=== PATIENT | female | born 1940 | race Caucasian/White ===

== ENCOUNTER 2024-08-31 09:24 | Outpatient (CLI) | payer MEDICARE, SELFPAY ==
--- NOTE | ~2024-08-31 | US_ITS ---
EXAMINATION: US carotid duplex BI DATE: 08/31/2024 10:12 INDICATION: Carotid occlusion. TECHNIQUE: Grayscale, color Doppler, and pulsed Doppler images of the cervical carotid arteries were obtained. The degree of vessel stenosis is placed in one of the following categories: normal, <50%, 5 0-69%, >=70% but less than near-occlusion, near-occlusion, or total occlusion. Note that percent sten osis relative to normal distal artery lumen diameter is indirectly measured from velocity measurement s as described by Nawaf, et al. Radiology 2003; 229:340-346. Notes: Normal: Peak systolic velocity <125 centimeters/sec and no plaque <50%. Peak systolic velocity <125 ( EDV <40; ICA/CCA PSV ratio <2.0; used these factors only a tandem lesions or low cardiac output or co ntralateral disease) 50-69 %: PSV 125-230 (EDV 40-100; ratio 2-4) >= 70% but less than near occlusion: PSV greater than 230 (EDV > 100; ratio> 4.0) Near Occlusion: PSV that is variable; markedly narrowed lumen Occlusion: Absent flow on color/spectral Doppler and no lumen on downs scale. COMPARISON: None. FINDINGS: RIGHT: The right common carotid artery (CCA) peak systolic velocity (PSV) is 77 cm/s. The right internal car otid artery (ICA) PSV is 64 cm/s. The right ICA end-diastolic velocity (EDV) is 14 cm/s. The right IC A/CCA PSV ratio is 0.8. The external carotid artery (ECA) PSV is 95 cm/s. There is antegrade flow in the right vertebral artery. LEFT: The left CCA PSV is 66 cm/s. The left ICA PSV is 87 cm/s. The left ICA EDV is 22 cm/s. The left ICA/C CA PSV ratio is 1.3. The ECA PSV is 98 cm/s. There is antegrade flow in the left vertebral artery. IMPRESSION: 1. Less than 50% stenosis in the right internal carotid artery by sonographic criteria. 2. Less than 50% stenosis in the left internal carotid artery by sonographic criteria. Reviewed, dictated and finalized at location A. IMPRESSION: 1. Less than 50% stenosis in the right internal carotid artery by sonographic billy wooten. 2. Less than 50% stenosis in the left internal carotid artery by sonographic katy dukes.
--- OUTSIDE RECORDS SUMMARY | 2024-08-31 10:06 | XMS_ITS | Encounter Summary ---
Author Organization [facility] Address [address] [place] [address] Phone Care Team Providers Care Editor Magazine Name Role Phone Justin Dang MD Primary Care Prov ider Judi Brooke RN Unavailable Carrol vailable Azul Israel MD Unavailable [phone] Leodan Campo MD Unavailable [phone] Encounter Details Date Type Department Care Team (Latest Contact Info) Description 07/29/2017 Orders Only [facility] CONVERSION Scanning, Provider Social History Tobacco Use Types Packs/Day Years Used Date Smoking Tobacco: Never Smokeless Tobacco: Never Alcohol Use Standard Drinks/Week Comments Yes 0 (1 standard drink = 0.6 oz pur e alcohol) Comments Unknown Sex and Gender Information Value Date Recorded Sex Assigned at Not on file 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 Gender Identity Not on file Sexual Orientation Not on file documented as of this encounter Plan of Treatment Not on file documented as of this encounter Procedures Procedure Name Priority Date/Time Associated Diagnosis Comments PULMONARY FUNCTION TEST (PFT) 07/29/2017 1:30 PM CDT documented in this encounter Results * PULMONARY FUNCTION TEST (PFT) (07/29/2017 1:30 PM CDT) Anatomical Region Laterality Modality PFT us Provider Scanning PFT ORDERABLES Final Result documented in this encounter Visit Diagnoses Not on filedocumented in this encounter Care Teams Editor Magazine Relationship Specialty Start Date End Date Justin Dang MD [address] [place] [address] PCP - General 06/26/16 Judi Brooke, RN Registered Nurse Pulmonary Disease 04/28/22 Azul Israel MD Referring Physician Pulmonary Disease 02/23/23 Leodan Campo MD Consulting Physician Cardiology 02/23/23 documented as of this encounter
--- OUTSIDE RECORDS SUMMARY | 2024-08-31 10:06 | XMS_ITS | Encounter Summary ---
Author Organization [facility] Address [address] [place] [address] Phone Care Team Providers Care Epic Cupid Analyst Name Role Phone Justin Dang MD Primary Care Prov ider Judi Brooke RN Unavailable Carrol vailable Azul Israel MD Unavailable [phone] Leodan Campo MD Unavailable [phone] Encounter Details Date Type Department Care Team (Latest Contact Info) Description 01/22/2017 Orders Only [facility] CONVERSION Scanning, Provider Social History Tobacco Use Types Packs/Day Years Used Date Smoking Tobacco: Never Smokeless Tobacco: Never Alcohol Use Standard Drinks/Week Comments Yes 0 (1 standard drink = 0.6 oz pur e alcohol) Comments Unknown Sex and Gender Information Value Date Recorded Sex Assigned at Not on file 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 Gender Identity Not on file Sexual Orientation Not on file documented as of this encounter Plan of Treatment Not on file documented as of this encounter Procedures Procedure Name Priority Date/Time Associated Diagnosis Comments PULMONARY FUNCTION TEST (PFT) 01/22/2017 9:51 AM CDT documented in this encounter Results * PULMONARY FUNCTION TEST (PFT) (01/22/2017 9:51 AM CDT) Anatomical Region Laterality Modality PFT us Provider Scanning PFT ORDERABLES Final Result documented in this encounter Visit Diagnoses Not on filedocumented in this encounter Care Teams Epic Cupid Analyst Relationship Specialty Start Date End Date Justin Dang MD [address] [place] [address] PCP - General 06/26/16 Judi Brooke, RN Registered Nurse Pulmonary Disease 04/28/22 Azul Israel MD Referring Physician Pulmonary Disease 02/23/23 Leodan Campo MD Consulting Physician Cardiology 02/23/23 documented as of this encounter
--- OUTSIDE RECORDS SUMMARY | 2024-08-31 10:06 | XMS_ITS | Encounter Summary ---
Author Organization [facility] Address [address] [place] [address] Care Team Providers Care Patient Care Technician Instructor Name Role Phone Justin Dang MD Primary Care Prov ider Judi Brooke RN Unavailable Carrol Azul Raman MD Unavailable [phone] Leodan Campo MD Unavailable [phone] Encounter Details Date Type Department Care Team (Late st Contact Info) Description 07/26/2024 Results Follow-Up [facility] Cardiology [address] [place] [address] Max Perez MD [address] [address] [facility] W Morphology when Performed Social History Tobacco Use Types Packs/Day Years Used Date Smoking Tobacco: Never Smokeless Tobacco: Never Alcohol Use Standard Drinks/Week Comments Yes 0 (1 standard drink = 0.6 oz pur e alcohol) Comments Unknown Sex and Gender Information Value Date Recorded Sex Assigned at Not on file 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
--- OUTSIDE RECORDS SUMMARY | 2024-08-31 10:06 | XMS_ITS | Continuity of Care Document ---
Author Organization [facility] Address [address] [place] [address] Phone Care Team Providers Care Film Historian Name Role Phone Miracle Butler Unavailable Unavailable [...] Diagnoses Date Provider Providers Copied on Encounter [facility], [address] [place] [address] [address], [place], [place], [address], tel:[phone] [facility] No Information 9- 0 Carrie Rausch. [address] , [address], [place], [address], [place]. tel:[phone] [facility], [address] [place] [address] [address], [place], [place], [address], tel:[phone] [facility] No Information 0-201 0 Simon OD Ronny. [address], [place], [place], [facility], . tel:[phone] [facility], [address] [place] [address] [address], [place], [place], [address], tel:[phone] [facility] No Information May-1 9-201 0 Butler Miracle. [address], [place], [facility], [place]. tel:[phone] [facility], [address] [place] [address] [address], [place], [place], [address], [place] tel:[phone] [facility] No Information July- 1-201 0 Butler Miracle. [address], [place], [facility], . tel:[phone] [facility], [address] [place] [address] [address], [place], [place], [address], tel:[phone] [facility] No Information Oct-2 0-200 9 Butler Miracle. [address], [place], [facility], [place]. tel:[phone] [facility], [address] [place] [address] [address], [place], [place], [address], tel:[phone] [facility] No Information Sep-2 6-200 8 Butler Miracle. [address], [place], [facility], [place]. tel:[phone] [facility], [address] [place] [address] [address], [place], [place], [address], [place] tel:[phone] [facility] No Information Sep-0 4-200 8 Simon OD Ronny. [address], [place], [facility], [place]. tel:[phone] [facility], [address] [place] [address] [address], [place], [place], [address], [place] tel:[phone] [facility] No Information 0 200 8 Carrie Orr [address], [place], [facility], [place]. tel:[phone] [facility], [address] [place] [place] [address], [place], [place], [address], [place] tel:[phone] [facility] No Information 200 8 Carrie Orr [address], [place], [facility], [place]. tel:[phone] Referring Provider: Miracle Triana, [address], [place], [facility]. tel:[phone] [facility], [address] [place] [address] [address], [place], [place], [address], [place] tel:[phone] [facility] No Information 8 Carrie Orr [address], [place], [facility], [place]. tel:[phone] [facility], [address] [place] [address], [place], [place], [address], [place] tel:[phone] [facility] No Information 7 Carrie Orr [address], [place], [facility], [place]. tel:[phone] Office/outpat ient Visit, Est [facility], [address] [place] [address], [place], [place], [address], [place] tel:[phone] [facility] No Information 200 7 Carrie Orr [address], [place], [facility], [place]. tel:[phone] Family History Family Member Type Diagnosis Age At Onset No Information Payers Payer name Insurance type Covered constitution party ID Authoriza tion(s) No Information Social [...]
--- OUTSIDE RECORDS SUMMARY | 2024-08-31 10:06 | XMS_ITS | Referral Summary ---
Author Organization [facility] D Address [address] [place] [address] Care Team Providers Care Realty Loan Specialist Name Role Phone Justin Dang MD Primary Care Prov ider Judi Brooke RN Unavailable Carrol Azul Raman MD Unavailable Leodan Campo MD Unavailable [phone] Encounters Date Type Department Care Team Description 08/22/2024 Telephone [facility] Cardiology [address] [place] [address] Max Perez MD 08/09/2024 11:00 AM CDT Office Visit [facility] Cardiology [address] [place] [address] Max Perez MD 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 (Primary Dx); Hx of CABG; Essential hypertension; Chronic obstructive pulmonary disease, unspecified COPD type (HCC) 07/27/2024 1:12 PM CDT - 07/27/2024 11:59 PM CDT Hospital Encounter [facility] [address] [place] [id number] Asthma, unspecified asthma severity, unspecified whether complicated, unspecified whether persistent; SOB (shortness of breath) Discharge Disposition: Discharge to home or self care 07/27/2024 12:45 PM CDT - 07/27/2024 11:59 PM CDT Hospital Encounter [facility] Pulmonary [address] [place] [address] Severe persistent asthma without complication (HCC) Discharge Disposition: Discharge to home or self care 07/27/2024 1:30 PM CDT Office Visit [facility] [address] [facility] [address] [place] [address] [place] [address] Letitia Myers NP Severe persistent asthma without complication (HCC) (Primary Dx); Shortness of breath on exertion; Immunization counseling; On prednisone therapy 07/26/2024 Results Follow-Up [facility] Cardiology [address] [place] [phone] Max Perez MD CTA Heart and Coronary Arteries W Morphology when Performed 07/25/2024 12:53 PM CDT - 07/25/2024 11:59 PM CDT Hospital Encounter [facility] ([facility]) [address] [place] [address] Discharge Disposition: Discharge to home or self care 06/28/2024 Telephone [facility] [facility] [address]th [place] [address] [place] [address] Judi Brooke, [facility] 06/07/2024 Telephone [facility] Cardiology [address] [place] [address] [address] [place] [phone] Max Perez MD from Last 3 Months Allergies Active Allergy Reactions Criticality Noted Date Comments Meperidine Nausea & Vomiting Low Opioids - Morphine Analogues Nausea & Vomiting Low Sulfa (Sulfonamide Antibiotics) Itching Low Medications aspirin 81 mg chewable tablet chew 1 tablet (81MG) by oral route every day 0 012 Active bepotastine besilate 1.5 % drops 022 Active azelastine (OPTIVAR) 0.05 % ophthalmic solution Administer 2 drops into both eyes daily 023 Active fluorometholone (FML) 0.1 % ophthalmic suspension Administer 2 drops into both eyes daily 022 Active nitroglycerin 400 mcg/spray sprayIndications: Coronary artery disease involving chevak coronary artery of chevak heart without angina pectoris Place 1 spray under the tongue every 5 (five) minutes as needed for chest pain 4.9 g 1 023 Active epinastine 0.05 % ophthalmic solution 023 Active escitalopram (LEXAPRO) 10 mg tablet 023 Active levothyroxine (SYNTHROID) 88 mcg tablet 023 Active clopidogreL (PLAVIX) 75 mg tablet TAKE ONE TABLET BY MOUTH EVERY DAY 90 tablet 2 024 Active montelukast (SINGULAIR) 10 mg tablet TAKE ONE TABLET BY MOUTH AT BEDTIME 30 tablet 11 025 Active atorvastatin (LIPITOR) 80 mg tablet TAKE ONE TABLET (80 MG TOTAL) BY MOUTH DAILY 90 tablet [address] (PROTONIX) 40 mg EC tablet Take 1 tablet (40 mg total) by mouth daily 025 Active tobramycin-dexAME THasone (TOBRADEX) ophthalmic solution Administer 1 drop into both eyes every 2 (two) hours while awake 025 Active levothyroxine (SYNTHROID) 100 mcg tablet Take 1 tablet (100 mcg total) by mouth weight clerk before breakfast 025 Active amLODIPine (NORVASC) 10 mg tablet Take 1 tablet (10 mg total) by mouth daily 30 tablet 11 025 2025 Active albuterol HFA (PROVENTIL HFA,VENTOLIN HFA,PROAIR HFA) 90 mcg/actuation inhaler INHALE TWO (2) PUFFS EVERY 4 (FOUR) HOURS NEEDED FOR WHEEZING 8.5 g 11 025 Active mirtazapine (REMERON) 15 mg tablet 025 Active predniSONE (DELTASONE) 5 mg tablet Take 1 tablet (5 mg) by mouth daily after completing the prednisone taper. 30 tablet 1 025 Active ezetimibe (ZETIA) 10 mg tablet TAKE ONE TABLET (10 MG) BY MOUTH DAILY 90 tablet 3 025 Active losartan (COZAAR) 100 mg tablet TAKE ONE TABLET (100 MG TOTAL) BY MOUTH DAILY 90 tablet 3 025 Active meclizine (ANTIVERT) 25 mg tablet 025 Active ondansetron ODT (ZOFRAN-ODT) 4 mg disintegrating tablet 025 Active hydroCHLOROthiazi de (HYDRODIURIL) 25 mg tablet TAKE ONE TABLET (25 MG) BY MOUTH DAILY 90 tablet 2 025 Active isosorbide mononitrate ER (IMDUR) 120 mg 24 hr tablet TAKE ONE TABLET (120 MG TOTAL) BY MOUTH EVERY MORNING 90 tablet 025 Active metoprolol (LOPRESSOR) 100 mg tabletIndications :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 Take 0.5 tablets (50 mg total) by mouth 2 (two) times a day 90 tablet 025 Active umeclidinium-ashley nteroL (Anoro Ellipta) 62.5-25 mcg/actuation blister with device Inhale 1 puff daily 90 each 3 025 Active isosorbide mononitrate ER (IMDUR) 120 mg 24 hr tablet TAKE 1 TABLET (120 MG TOTAL) BY MOUTH EVERY MORNING 90 tablet 3 024 2024 Discontinued hydroCHLOROthiazi de (HYDRODIURIL) 25 mg tablet TAKE 1 TABLET (25 MG TOTAL) BY MOUTH DAILY 90 tablet 3 024 2024 Discontinued metoprolol (LOPRESSOR) 100 mg tabletIndications :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 Take 0.5 tablets (50 mg total) by mouth 2 (two) times a day 024 2024 Discontinued Anoro Ellipta 62.5-25 mcg/actuation blister with device USE 1 INHALATION BY MOUTH DAILY 180 each 3 025 2024 Discontinued(R eorder) Active Problems Problem Noted Date Diagnosed Date Severe persistent asthma without complication Hx of CABG 10/22/2021 Peripheral artery disease 10/22/2021 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 Continue aspirin and Plavix. Nitroglycerin spray refilled. Assessment & Plan (04/01/2020 2:54 PM PRODUCTION CLERK): Mild stable exertional chest discomfort. She is on maximum tolerated medical therapy. No change made. Assessment & Plan (06/22/2019 1:46 PM CDT): Very rare episodes of nitrate responsive chest discomfort. Assessment & Plan (12/04/2018 7:19 PM CDT): Symptoms are stable. Continue current regimen. Assessment & Plan (05/16/2018 11:55 AM PRODUCTION CLERK): Symptoms are stable on beta-yrn and nitrate therapy. Continue dual anti- platelet therapy as well. Assessment & Plan (11/19/2017 4:23 PM CDT): No recent symptoms of chest discomfort. Arm discomfort proved to be noncardiac. Assessment & Plan (04/23/2017 10:39 AM PRODUCTION CLERK): Exertional chest discomfort, relieved by rest. She is on maximum tolerated beta-yrn and nitrate therapy, and has not tolerated Ranexa. The symptoms have previously been shown to be from a tiny distal LAD not suitable for intervention. Discussed the prophylactic use of nitroglycerin, and she will try this. Assessment & Plan (10/22/2016 2:12 PM CDT): Remarkably asymptomatic on current therapy. No change recommended. She is to let me know if any surgery is recommended for her neck condition. Essential hypertension 10/22/2016 Assessment & Plan (12/16/2020 11:07 AM CDT): Blood pressure is adequately controlled on current regimen. No change was made. Assessment & Plan (04/01/2020 2:54 PM PRODUCTION CLERK): Blood pressure is adequately controlled on current regimen. No change was made. Assessment & Plan (06/22/2019 1:47 PM CDT): Blood pressure is adequately controlled on current regimen. No change was made. Assessment & Plan (12/04/2018 7:19 PM CDT): Blood pressure is adequately controlled on current regimen. No change was made. Assessment & Plan (05/16/2018 11:55 AM PRODUCTION CLERK): Blood pressure is adequately controlled on current regimen. No change was made. Assessment & Plan (11/19/2017 4:24 PM CDT): Blood pressure is adequately controlled on current regimen. No change was made. Assessment & Plan (04/23/2017 10:39 AM PRODUCTION CLERK): Blood pressure is adequately controlled on current regimen. No change was made. Assessment & Plan (10/22/2016 2:12 PM CDT): Blood pressure is adequately controlled on current regimen. No change was made. Mixed hyperlipidemia 10/22/2016 Assessment & Plan (12/16/2020 11:07 AM CDT): On chronic lipid lowering therapy with good control. No changes made. Assessment & Plan (04/01/2020 2:54 PM PRODUCTION CLERK): On chronic lipid lowering therapy with good control. No changes made. Assessment & Plan (06/22/2019 1:47 PM CDT): On chronic lipid lowering therapy with good control. No changes made. Assessment & Plan (12/04/2018 7:19 PM CDT): On chronic lipid lowering therapy with good control. No changes made. Assessment & Plan (05/16/2018 11:55 AM PRODUCTION CLERK): On chronic lipid lowering therapy with good control. No changes made. Assessment & Plan (11/19/2017 4:24 PM CDT): On chronic lipid lowering therapy with good control. No changes made. Assessment & Plan (04/23/2017 10:39 AM PRODUCTION CLERK): On chronic lipid lowering therapy with good control. No changes made. Assessment & Plan (10/22/2016 2:13 PM CDT): On chronic lipid lowering therapy with good control. No changes made. Moderate persistent asthma without complication 10/16/2015 Calculus of kidney 10/27/2012 Resolved Problems Problem Noted Date Diagnosed Date Resolved Date Lipid screening 05/10/2023 10/07/2023 Palpitations 04/29/2022 02/22/2023 Bilateral lower extremity edema 11/14/2018 02/22/2023 Assessment & Plan (12/04/2018 7:21 PM CDT): Will obtain echo Doppler to be sure there is no cardiac source of her edema. For convenience reasons, she strongly prefers to have this done at [facility]. Asthma 10/16/2015 02/22/2023 Chronic obstructive pulmonary disease 06/26/2015 10/07/2023 Cough 02/26/2015 02/22/2023 Shortness of breath 10/07/19 24 Immunizations Immunization Administration Dates Next Due Influenza, Quadrivalent, Hig h Dose, Preservative Free, Intrr 01/13/2022 Influenza, Trivalent, High D ose, Split, Preservative Free, Intramuscular 12/17/2023 Influenza, Trivalent, IM (MDV) 01/08/2014,2012,02/29/2012 Influenza, Trivalent, Preser vative Free, Intramuscular 02/17/2015 RSV Vaccine, Pref, Recombina nt, Subunit, Adjuvanted, PF, IM (Arexvy) 12/17/2023 Social History Tobacco Use Types Packs/Day Years Used Date Smoking Tobacco: Never Smokeless Tobacco: Never Tobacco Cessation:Counseling Given: Not Answered Alcohol Use Standard Drinks/Week Comments Yes 0 (1 standard drink = 0.6 oz pur e alcohol) Comments Unknown Sex and Gender Information Value Date Recorded Sex Assigned at Not on file Legal Sex Female 11:25 AM PRODUCTION CLERK Gender Identity Not on file Sexual Orientation Not on file Last Filed Vital Signs Vital Sign Reading Time Taken Comments Blood Pressure 122/58 08/09/2024 11:11 AM CDT Pulse 67 08/09/2024 11:11 AM CDT Temperature 36.1 C (96.9 F) 07/27/2024 1:31 PM CDT Respiratory Rate 18 07/27/2024 1:31 PM CDT Oxygen Saturation 96% 08/09/2024 11:11 AM CDT Inhaled Oxygen Concentration - - Weight 67.1 kg (148 lb) 08/09/2024 11:11 AM CDT Height 154.9 cm (5' 1) 08/09/2024 11:11 AM CDT Body Mass Index 27.96 08/09/2024 11:11 AM CDT Plan of Treatment Not on file Procedures Procedure Name Priority Date/Time Associated Diagnosis Comments POCT LIPID PANEL Routine 08/09/2024 11:0 8 AM CDT 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 XR CHEST PA LATERAL 2 VIEWS Schedule Routine, Read Routine (OP Routine) 07/27/2024 1:17 PM CDT Asthma, unspecified asthma severity, unspecified whether complicated, unspecified whether persistent SOB (shortness of breath) PULMONARY FUNCTION TEST (PFT) Routine 07/27/2024 1:00 PM CDT Severe persistent asthma without complication (HCC) CT HEART MORPHOLOGY AND CORONARY ARTERIES W CONTRAST Schedule Routine, Read Routine (OP Routine) 07/25/2024 2:00 PM CDT 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 Hx of CABG POCT CREATININE - DEVICE Routine 07/25/2024 1:22 PM CDT DEXA APPENDICULAR BONE DENSITY Schedule Routine, Read Routine (OP Routine) 05/19/2022 10:05 AM PRODUCTION CLERK Adverse effect of prednisone, sequela Post-menopausal from Last 3 Months or Most Recently Relevant to Health Maintenance Results * POCT lipid panel (08/09/2024 11:08 AM CDT) Cholesterol, POC 163 <200 MG/DL HDL, POC 64 >=40 mg/dL Triglycerides, POC 104 <=149 mg/dL LDL Cholesterol POC 78 <=129 mg/dL Chol/HDL Ratio, POC 1.2 NONE Non-HDL Cholesterol, POC 98 NONE mg/dL Cholesterol Total, POC 163 30 - 199 mg/dL Capillary blood 08/09/2024 1 1:08 AM CDT Max Perez MD POINT OF CARE TEST ORDERABLES Fi nal Result * X-ray chest 2 views (07/27/2024 1:17 PM CDT) Anatomical Region Laterality Modality Body, Chest N/A Computed Radiogr aphy 07/27/2024 2:00 PM CDT Impressions 07/27/2024 2:08 PM CDT Comparison radiograph dated 07/02/2020. Median sternotomy wires are unchanged. CABG graft markers. No focal pulmonary consolidation, pleural effusion, or pneumothorax. Normal cardiomediastinal silhouette. Dictated by: Alma Krishnan MD The radiology attending physician has personally reviewed this study, and had reviewed and/or edited this written report and agrees with it. Electronically signed by: Ebony Canchola M.D. Narrative 07/27/2024 2:08 PM CDT EXAMINATION: 2 view chest radiograph Procedure Note Ebony Canchola MD - 07/27/2024 EXAMINATION: 2 view chest radiograph IMPRESSION: Comparison radiograph dated 07/02/2020. Median sternotomy wires are unchanged. CABG graft markers. No focal pulmonary consolidation, pleural effusion, or pneumothorax. Normal cardiomediastinal silhouette. Dictated by: Alma Krishnan MD The radiology attending physician has personally reviewed this study, and had reviewed and/or edited this written report and agrees with it. Electronically signed by: Ebony Canchola M.D. Azul Israel MD IMG XR PROCEDURES Final Resu lt * Pulmonary Function Test - (07/27/2024 1:00 PM CDT) FVC PRE 1.73 L [facility] FVC %PRE PRED 79 % [facility] FEV1 PRE 1.13 L [facility] FEV1 %PRE PRED 67 % [facility] FEV1/FVC PRE 65.3 % [facility] Anatomical Region Laterality Modality PFT 07/27/2024 12:5 7 PM CDT Narrative 07/27/2024 2:07 PM CDT PFT performed at:->[id number] Procedure:->Spirometry Pulmonary Function Test Interpretation SPIROMETRY: There is a decrease in expiratory airflow at middle lung volumes. The decreased expiratory flow and FEV1 and FVC are consistent with a combined restrictive and obstructive abnormality. The inspiratory loop is normal. Impression: There is a moderate obstructive defect. Measurement of lung volumes is suggested to rule out coexisting restriction. Compared with most recent study, there has been no significant interval change. The attending pulmonary physician certifies a physician presence in the [facility] during the administration of aerosolized bronchodilator. The attending pulmonary physician certifies that he/she has reviewed and interpreted the graphic and numerical data of this pulmonary function study and agrees with the written final report. The lower limit of normal for PaO2 and %HbO2 is age dependent. However, the [facility] Function Laboratory defines hypoxemia as a PaO2 <56 mm Hg or a %HbO2 <89%. Starting on March of 2024 the [facility] Function Laboratory utilizes race neutral GLI Global normative equations. us Azul Israel MD PFT ORDERABLES Final Result * CTA Heart and Coronary Arteries W Morphology when Performed (07/25/2024 2:00 PM CDT) Anatomical Region Laterality Modality Chest N/A Computed Tomogra phy 07/25/2024 3:34 PM CDT Impressions 07/26/2024 9:11 AM CDT 1. Postsurgical changes of coronary artery bypass grafting, with patent saphenous-venous graft to the left coronary system. However, there is a focal calcified lesion in the mid aspect of the graft which projects into the lumen and may result in significant stenosis, however quantification is limited on this examination secondary to calcium blooming. 2. Patent stents in the right coronary artery, and left main/circumflex artery, with noncalcified atherosclerotic lesion just distal to the circumflex stent which results in moderate stenosis. Dictated by: Ricki Alcocer MD The radiology attending physician has personally reviewed this study, and had reviewed and/or edited this written report and agrees with it. Electronically signed by: Krish Baer M.D. Narrative 07/26/2024 9:11 AM CDT EXAMINATION: CORONARY CT ANGIOGRAM HISTORY: History of coronary artery bypass grafting, presenting with new symptomatology. TECHNIQUE: CT angiography of the coronary arteries was performed after the administration of 95 mL of Optiray 350. Images were also obtained precontrast for the purposes of calcium scoring. 0 mg of metoprolol was administered intravenously prior to the examination. The patient's heart rate and blood pressure at the time of the examination were 75 beats per minute and 139/61 mmHg. Images were transferred to a 3D workstation for additional post-processing. FINDINGS: Postsurgical changes of coronary artery bypass grafting, with saphenous venous graft communicating from the ascending aorta, to the left anterior descending artery, and a diagonal branch. Atherosclerotic calcifications can be seen throughout the venous graft, with focal area of bulky calcified atherosclerosis which significantly projects into the lumen in the mid-segment, limits evaluation of focal stenosis secondary to calcium blooming. The graft remains patent. The coronary arteries are right system dominant. There is no anomalous origin of the coronary arteries. The [place]vak coronary arteries are heavily calcified. Right coronary system: Multifocal calcified atherosclerotic stenosis seen throughout the right main coronary artery, with patent stent in the distal aspect. Left coronary system: There is a stent in the left main coronary artery, which extends into the lesser complex artery. There is a high-grade noncalcified lesion in the proximal circumflex complex artery just beyond the stent, which results in likely moderate degree of stenosis. Calcified atherosclerotic disease seen throughout the extent of the chevak left anterior descending artery. The calculated calcium score is 3297.7. Other findings: Sternotomy changes. There is a hiatal hernia. Degenerative changes are noted in the imaged spine. Aortic atherosclerotic changes are noted, with extension into the left subclavian artery. Procedure Note Krish Baer MD - 07/26/2024 EXAMINATION: CORONARY CT ANGIOGRAM HISTORY: History of coronary artery bypass grafting, presenting with new symptomatology. TECHNIQUE: CT angiography of the coronary arteries was performed after the administration of 95 mL of Optiray 350. Images were also obtained precontrast for the purposes of calcium scoring. 0 mg of metoprolol was administered intravenously prior to the examination. The patient's heart rate and blood pressure at the time of the examination were 75 beats per minute and 139/61 mmHg. Images were transferred to a 3D workstation for additional post-processing. FINDINGS: Postsurgical changes of coronary artery bypass grafting, with saphenous venous graft communicating from the ascending aorta, to the left anterior descending artery, and a diagonal branch. Atherosclerotic calcifications can be seen throughout the venous graft, with focal area of bulky calcified atherosclerosis which significantly projects into the lumen in the mid-segment, limits evaluation of focal stenosis secondary to calcium blooming. The graft remains patent. The coronary arteries are right system dominant. There is no anomalous origin of the coronary arteries. The chevak coronary arteries are heavily calcified. Right coronary system: Multifocal calcified atherosclerotic stenosis seen throughout the right main coronary artery, with patent stent in the distal aspect. Left coronary system: There is a stent in the left main coronary artery, which extends into the lesser complex artery. There is a high-grade noncalcified lesion in the proximal circumflex complex artery just beyond the stent, which results in likely moderate degree of stenosis. Calcified atherosclerotic disease seen throughout the extent of the chevak left anterior descending artery. The calculated calcium score is 3297.7. Other findings: Sternotomy changes. There is a hiatal hernia. Degenerative changes are noted in the imaged spine. Aortic atherosclerotic changes are noted, with extension into the left subclavian artery. IMPRESSION: 1. Postsurgical changes of coronary artery bypass grafting, with patent saphenous-venous graft to the left coronary system. However, there is a focal calcified lesion in the mid aspect of the graft which projects into the lumen and may result in significant stenosis, however quantification is limited on this examination secondary to calcium blooming. 2. Patent stents in the right coronary artery, and left main/circumflex artery, with noncalcified atherosclerotic lesion just distal to the circumflex stent which results in moderate stenosis. Dictated by: Ricki Alcocer MD The radiology attending physician has personally reviewed this study, and had reviewed and/or edited this written report and agrees with it. Electronically signed by: Krish Baer M.D. Max Perez MD IMG CT PROCEDURES Final Result * (ABNORMAL) POCT creatinine (07/25/2024 1:22 PM CDT) Creatinine POC 1.3(H) 0.6 - 1.1 mg/dL Blood 07/25/2024 1:22 PM CDT 07/25/2024 1:22 PM CDT us Justin Dang MD LAB POCT ORDERABLE S - DEVICE Final Result [facility] Department [place] [address] * Dexa Bone Density (05/19/2022 10:05 AM PRODUCTION CLERK) Anatomical Region Laterality Modality Wrist N/A Digital Radiogra phy 05/19/2022 10:0 8 AM PRODUCTION CLERK Impressions 05/19/2022 11:00 AM PRODUCTION CLERK 1. The bone mineral density of the lumbar spine is normal. 2. The bone mineral density of the left femoral neck is normal. 3. The bone mineral density of the left total hip is normal. 4. Overall, the above findings are normal by WHO criteria. 5. Calculation of fracture risk using the FRAX model is not appropriate in certain settings. It was not performed in this patient because the patient met the following condition(s): normal bone density. General comments regarding interpretation of bone density measurements: A) In children, premenopausal woman and males under age 50 not at increased risk for fractures only Z-scores, not T-scores are used to indicate risk. A Z-score above -2.0 is defined as within the expected range for age and Z-score at or less than -2.0 is below the expected range for age. A Z-score below the expected range for age in a patient with recent fractures and/or chronic corticosteroid treatment is consistent with a diagnosis of osteoporosis. B) In post menopausal women and males over 50, comparison of the measured bone mineral density with the average value in young normal subjects (the T-score) has been found to be useful in assessing fracture risk. Fracture risk approximately doubles for each 1.0 standard deviation (SD) in individual's hip or spine bone mineral density is below the average value of young normal subjects. The World Health Organization (WHO) has defined T-scores of -1.0 to -2.5 as diagnostic of low bone mass (OSTEOPENIA), and T-scores of -2.5 or lower to be diagnostic of OSTEOPOROSIS, based on the site of lowest bone density. Note that there will be a change in reporting format and reference databases as patients move from the younger population (group A) to the older population (group B) The National Osteoporosis Foundation (www.nof.org) recommends adequate intake of calcium and vitamin D and regular weight-bearing exercise in all patients. They recommend pharmacologic treatment in postmenopausal women and men age 50 and older presenting with any of the followin) Osteoporosis, after appropriate evaluation to exclude secondary causes. 2) A hip or vertebral (clinical or radiographic) fracture, regardless of the bone density. 3) Low bone mass (Osteopenia) and one or more of: other prior fractures, secondary causes associated with high risk of fracture (such as glucocorticoid use or total immobilization), or computed high risk of fracture (10-yr probability of hip fracture >= 3% or a 10-yr probability of any major osteoporosis-related fracture >= 20% based on the [place].-adapted WHO algorithm), available at http://www.shef.ac.uk/FRAX). Dictated by: Peter Moseley M.D. The radiology attending physician has personally reviewed this study, and had reviewed and/or edited this written report and agrees with it. Electronically signed by: DO Prince Brenner 05/19/2022 11:00 AM PRODUCTION CLERK BONE DENSITOMETRY OF THE SPINE AND HIP DATE OF STUDY: 05/19/2022 HISTORY: 81-year-old postmenopausal woman with severe persistent asthma intermittently on prednisone. She is not being treated with pertinent medications. Evaluate bone mineral density. Additional risk factors for fracture: None. FINDINGS (SPINE): The bone mineral density of L1-L4 was assessed by dual-energy x-ray absorptiometry. The average bone mineral density within this region is 1.127 gm/sq-cm. This is 3.5 standard deviations above the mean of the average bone mineral density for age- and gender-matched subjects (the Z-score). It is 0.7 standard deviations above the mean peak bone mineral density in young adults (the T-score). FINDINGS (FEMORAL NECK): The bone mineral density of the left femoral neck was assessed by dual-energy x-ray absorptiometry. The average bone mineral density within the femoral neck region is 0.863 gm/sq-cm. This is 2.5 standard deviations above the mean of the average bone mineral density for age- and gender-matched subjects (the Z-score). It is 0.1 standard deviations above the mean peak bone mineral density in young adults (the T-score). FINDINGS (TOTAL HIP): The bone mineral density of the left hip was assessed by dual-energy x-ray absorptiometry. The average bone mineral density within the total hip region is 0.920 gm/sq-cm. This is 2.0 standard deviations above the mean of the average bone mineral density for age- and gender-matched subjects (the Z-score). It is 0.2 standard deviations below the mean peak bone mineral density in young adults (the T-score). SUMMARY OF CURRENT RESULTS: Region BMD T-score Z-score AP Spine (L1-L4) 1.127 0.7 3.5 Femoral Neck (Left) 0.863 0.1 2.5 Total Hip (Left) 0.920 -0.2 2.0 Procedure Note Baldemar Rae DO - 05/19/2022 BONE DENSITOMETRY OF THE SPINE AND HIP DATE OF STUDY: 05/19/2022 HISTORY: 81-year-old postmenopausal woman with severe persistent asthma intermittently on prednisone. She is not being treated with pertinent medications. Evaluate bone mineral density. Additional risk factors for fracture: None. FINDINGS (SPINE): The bone mineral density of L1-L4 was assessed by dual-energy x-ray absorptiometry. The average bone mineral density within this region is 1.127 gm/sq-cm. This is 3.5 standard deviations above the mean of the average bone mineral density for age- and gender-matched subjects (the Z-score). It is 0.7 standard deviations above the mean peak bone mineral density in young adults (the T-score). FINDINGS (FEMORAL NECK): The bone mineral density of the left femoral neck was assessed by dual-energy x-ray absorptiometry. The average bone mineral density within the femoral neck region is 0.863 gm/sq-cm. This is 2.5 standard deviations above the mean of the average bone mineral density for age- and gender-matched subjects (the Z-score). It is 0.1 standard deviations above the mean peak bone mineral density in young adults (the T-score). FINDINGS (TOTAL HIP): The bone mineral density of the left hip was assessed by dual-energy x-ray absorptiometry. The average bone mineral density within the total hip region is 0.920 gm/sq-cm. This is 2.0 standard deviations above the mean of the average bone mineral density for age- and gender-matched subjects (the Z-score). It is 0.2 standard deviations below the mean peak bone mineral density in young adults (the T-score). SUMMARY OF CURRENT RESULTS: Region BMD T-score Z-score AP Spine (L1-L4) 1.127 0.7 3.5 Femoral Neck (Left) 0.863 0.1 2.5 Total Hip (Left) 0.920 -0.2 2.0 IMPRESSION: 1. The bone mineral density of the lumbar spine is normal. 2. The bone mineral density of the left femoral neck is normal. 3. The bone mineral density of the left total hip is normal. 4. Overall, the above findings are normal by WHO criteria. 5. Calculation of fracture risk using the FRAX model is not appropriate in certain settings. It was not performed in this patient because the patient met the following condition(s): normal bone density. General comments regarding interpretation of bone density measurements: A) In children, premenopausal woman and males under age 50 not at increased risk for fractures only Z-scores, not T-scores are used to indicate risk. A Z-score above -2.0 is defined as within the expected range for age and Z-score at or less than -2.0 is below the expected range for age. A Z-score below the expected range for age in a patient with recent fractures and/or chronic corticosteroid treatment is consistent with a diagnosis of osteoporosis. B) In post menopausal women and males over 50, comparison of the measured bone mineral density with the average value in young normal subjects (the T-score) has been found to be useful in assessing fracture risk. Fracture risk approximately doubles for each 1.0 standard deviation (SD) in individual's hip or spine bone mineral density is below the average value of young normal subjects. The World Health Organization (WHO) has defined T-scores of -1.0 to -2.5 as diagnostic of low bone mass (OSTEOPENIA), and T-scores of -2.5 or lower to be diagnostic of OSTEOPOROSIS, based on the site of lowest bone density. Note that there will be a change in reporting format and reference databases as patients move from the younger population (group A) to the older population (group B) The National Osteoporosis Foundation (www.nof.org) recommends adequate intake of calcium and vitamin D and regular weight-bearing exercise in all patients. They recommend pharmacologic treatment in postmenopausal women and men age 50 and older presenting with any of the followin) Osteoporosis, after appropriate evaluation to exclude secondary causes. 2) A hip or vertebral (clinical or radiographic) fracture, regardless of the bone density. 3) Low bone mass (Osteopenia) and one or more of: other prior fractures, secondary causes associated with high risk of fracture (such as glucocorticoid use or total immobilization), or computed high risk of fracture (10-yr probability of hip fracture >= 3% or a 10-yr probability of any major osteoporosis-related fracture >= 20% based on the U.S.-adapted WHO algorithm), available at http://www.shef.ac.uk/FRAX). Dictated by: Peter Moseley M.D. The radiology attending physician has personally reviewed this study, and had reviewed and/or edited this written report and agrees with it. Electronically signed by: Baldemar Rae DO Azul Israel MD IMG DXA PROCEDURES Final Res ult from Last 3 Months or Most Recently Relevant to Health Maintenance Insurance MEDICARE MEDICARE [employer]UE [employer] MEDICARE BLUE [facility] Care Teams Realty Loan Specialist Relationship Specialty Start Date End Date Justin Dang MD [address] [place] [address] PCP - General 06/26/16 Judi Brooke, RN Registered Nurse Pulmonary Disease 04/28/22 Azul Israel MD Referring Physician Pulmonary Disease 02/23/23 Leodan Campo MD Consulting Physician Cardiology 02/23/23
--- OUTSIDE RECORDS SUMMARY | 2024-08-31 10:06 | XMS_ITS | Clinical Summary ---
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 Place 1 spray [...] BY MOUTH AT BEDTIME 30 tablet 11 Active atorvastatin (LIPITOR) 80 mg tablet TAKE ONE TABLET (80 MG TOTAL) BY MOUTH DAILY 90 tablet [address] (PROTONIX) 40 mg EC tablet Take 1 tablet (40 mg total) by mouth daily 025 Active tobramycin-dexAME THasone (TOBRADEX) ophthalmic solution Administer 1 drop into both eyes every 2 (two) hours while awake Active levothyroxine (SYNTHROID) 100 mcg tablet Take 1 tablet (100 mcg total) by mouth pitch flaker before breakfast Active amLODIPine (NORVASC) 10 mg tablet Take 1 tablet (10 mg total) by mouth daily 30 tablet 11 025 2025 Active albuterol HFA (PROVENTIL HFA,VENTOLIN HFA,PROAIR HFA) 90 mcg/actuation inhaler INHALE TWO (2) PUFFS EVERY 4 (FOUR) HOURS NEEDED FOR WHEEZING 8.5 g 11 Active mirtazapine (REMERON) 15 mg tablet 025 [...] 025 Active meclizine (ANTIVERT) 25 mg tablet Active ondansetron ODT (ZOFRAN-ODT) 4 mg disintegrating tablet 025 Active hydroCHLOROthiazi de (HYDRODIURIL) 25 mg tablet TAKE ONE TABLET (25 MG) BY MOUTH DAILY 90 tablet 2 025 Active isosorbide mononitrate ER (IMDUR) 120 mg 24 hr tablet TAKE ONE TABLET (120 MG TOTAL) BY MOUTH EVERY MORNING 90 tablet 025 Active metoprolol (LOPRESSOR) 100 mg tabletIndications :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 Continue aspirin and Plavix. Nitroglycerin spray refilled. Assessment & Plan (04/01/2020 2:54 PM CLOUD ENGINEER): Mild stable exertional chest discomfort. She is on maximum tolerated medical therapy. No change made. Assessment & Plan (06/22/2019 1:46 PM CDT): Very rare episodes of nitrate responsive chest discomfort. Assessment & Plan (12/04/2018 7:19 PM CDT): Symptoms are stable. Continue current regimen. Assessment & Plan (05/16/2018 11:55 AM CLOUD ENGINEER): Symptoms are stable on beta-yrn and nitrate therapy. Continue dual anti- platelet therapy as well. Assessment & Plan (11/19/2017 4:23 PM CDT): No recent symptoms of chest discomfort. Arm discomfort proved to be noncardiac. Assessment & Plan (04/23/2017 10:39 AM CLOUD ENGINEER): Exertional chest discomfort, relieved by rest. She [...] made. Assessment & Plan (04/01/2020 2:54 PM CLOUD ENGINEER): Blood pressure is adequately controlled on current regimen. No change was made. Assessment & Plan (06/22/2019 1:47 PM CDT): Blood pressure is adequately controlled on current regimen. No change was made. Assessment & Plan (12/04/2018 7:19 PM CDT): Blood pressure is adequately controlled on current regimen. No change was made. Assessment & Plan (05/16/2018 11:55 AM CLOUD ENGINEER): Blood pressure is adequately controlled on current regimen. No change was made. Assessment & Plan (11/19/2017 4:24 PM CDT): Blood pressure is adequately controlled on current regimen. No change was made. Assessment & Plan (04/23/2017 10:39 AM CLOUD ENGINEER): Blood pressure is adequately controlled on current regimen. No change was made. Assessment & Plan (10/22/2016 2:12 PM CDT): Blood pressure is adequately controlled on current regimen. No change was made. Mixed hyperlipidemia 10/22/2016 Assessment & Plan (12/16/2020 11:07 AM CDT): On chronic lipid lowering therapy with good control. No changes made. Assessment & Plan (04/01/2020 2:54 PM CLOUD ENGINEER): On chronic lipid lowering therapy with good control. No changes made. Assessment & Plan (06/22/2019 1:47 PM CDT): On chronic lipid lowering therapy with good control. No changes made. Assessment & Plan (12/04/2018 7:19 PM CDT): On chronic lipid lowering therapy with good control. No changes made. Assessment & Plan (05/16/2018 11:55 AM CLOUD ENGINEER): On chronic lipid lowering therapy with good control. No changes made. Assessment & Plan (11/19/2017 4:24 PM CDT): On chronic lipid lowering therapy with good control. No changes made. Assessment & Plan (04/23/2017 10:39 AM CLOUD ENGINEER): On chronic lipid lowering therapy with good [...] strongly prefers to have this done at [facility]. 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 (Primary Dx); Hx of CABG; Essential hypertension; Chronic obstructive pulmonary disease, unspecified COPD type (HCC) 07/27/2024 1:30 PM CDT Office Visit [facility] Pulmonary [address] [place] [address] Advanced Medicine 8th [place] [address] [place] [address] Letitia Myers NP Severe persistent asthma without complication (HCC) (Primary Dx); Shortness of breath on exertion; Immunization counseling; On prednisone therapy 07/27/2024 1:12 PM CDT - 07/27/2024 11:59 PM CDT Hospital Encounter [facility] [address] [place] [id number] Asthma, unspecified asthma severity, unspecified whether complicated, unspecified whether persistent; SOB (shortness of breath) Discharge Disposition: Discharge to home or self care 07/27/2024 12:45 PM CDT - 07/27/2024 11:59 PM CDT Hospital Encounter [facility] Pulmonary [address] [place] [address] [address] [place] [address] Severe persistent asthma without complication (HCC) Discharge Disposition: Discharge to home or self care 07/26/2024 Results Follow-Up [facility] Cardiology [address] [place] [address] Max Perez MD CTA Heart and Coronary Arteries W Morphology when Performed 07/25/2024 12:53 PM CDT - 07/25/2024 11:59 PM CDT Hospital Encounter [facility] [address] [place] [address] Discharge Disposition: Discharge to home or self care 06/28/2024 Telephone [facility] Pulmonary [address] [facility] Advanced Medicine 8th [place] [address] [place] [address] Judi Brooke RN 06/07/2024 Telephone [facility] Cardiology [address] [place] [address] Max Perez MD from Last 3 Months Immunizations Immunization Administration Dates Next Due Influenza, Quadrivalent, Hig h Dose, Preservative Free, Intrr 01/13/2022 Influenza, Trivalent, High D ose, Split, Preservative Free, Intramuscular 12/17/2023 Influenza, Trivalent, IM (MDV) 01/08/2014,2012,02/29/2012 Influenza, Trivalent, Preser vative Free, Intramuscular 02/17/2015 RSV Vaccine, Pref, Recombina nt, Subunit, Adjuvanted, PF, IM (Arexvy) 12/17/2023 Surgical History Surgery Date Site/Laterality Comments CHOLECYSTECTOMY Cholecystectomy BREAST BIOPSY 05/18/2014 Right CORONARY ARTERY BYPASS GRAFT 03/29/1979 - 03/28/1980 Medical History Medical History Date Comments Myocardial infarction (HCC) 1995 Myoc ardial infarction Calculus of kidney Kidney Stones Hypertension Hyperlipidemia Shortness of breath Family History Medical History Relation Name Comments Heart disease Father Family history of cardiac disorder - (Added by TW Conv) Heart attack Mother Myocardial Infa rction; Heart attack Mother's Sister 1 1 Myocardial Infarction; Heart attack Mother's Sister 2 2 Myocardial Infarction; Relation Name Status Comments Father Mother Mother's Sister 1 1 Alive Mother's Sister 2 2 Alive Social History Tobacco Use Types Packs/Day Years Used Date Smoking Tobacco: Never Smokeless Tobacco: Never Tobacco Cessation:Counseling Given: Not Answered Alcohol Use Standard Drinks/Week Comments Yes 0 (1 standard drink = 0.6 oz pur e alcohol) Comments Unknown Sex and Gender Information Value Date Recorded Sex Assigned at Not on file Legal Sex Female 11:25 AM CLOUD ENGINEER Gender Identity Not on file Sexual Orientation Not on file Obstetrics History Last Filed Vital Signs Vital Sign Reading [...] 08/09/2024 11:11 AM CDT Plan of Treatment Health Maintenance Due Date Last Done Comments Depression Screening 1940 Fall Risk Assessment 1940 DTaP/Tdap/Td Vaccine (1 - Tdap) 08/26/1950 Hepatitis B Screening 08/26/1957 Pneumococcal vaccine 65+ (1 of 2 - PCV) 08/26/1958 Zoster Vaccine (1 of 2) 08/26/1989 Well Visit 65+ 08/26/2004 Covid-19 Vaccine (4 - 2023-2 5 season) 2023 03/13/2021, 06/16/2020, 05/26/2020 Osteoporosis Screening-Bone Density Scan 05/19/2024 05/19/2022 Influenza Vaccine Completed 12/17/2023, , 02/17/2015, Additional history exists Procedures Procedure Name Priority Date/Time Associated Diagnosis Comments POCT LIPID PANEL Routine 08/09/2024 11:0 8 AM CDT 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 XR CHEST [...] 2:00 PM CDT 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 POCT CREATININE - DEVICE Routine 07/25/2024 1:22 PM CDT DEXA APPENDICULAR BONE DENSITY Schedule Routine, Read Routine (OP Routine) 05/19/2022 10:05 AM CLOUD ENGINEER Adverse effect of prednisone, sequela Post-menopausal from [...] Capillary blood 08/09/2024 1 1:08 AM CDT us Max Perez MD POINT OF CARE TEST [...] Function Test - (07/27/2024 1:00 PM CDT) Pathologist [facility] FVC PRE 1.73 L [facility] FVC %PRE PRED 79 % [facility] FEV1 PRE 1.13 L [facility] FEV1 %PRE PRED 67 % [facility] FEV1/FVC PRE 65.3 % [facility] Anatomical Region Laterality Modality PFT 07/27/2024 12:5 7 PM CDT Narrative 07/27/2024 2:07 PM CDT PFT performed at:->[facility] Adult PFT Lab- [id number] Procedure:->Spirometry Pulmonary Function [...] and %HbO2 is age dependent. However, the [facility] Pulmonary Function Laboratory defines hypoxemia as a PaO2 <56 mm Hg or a %HbO2 <89%. Starting on March of 2024 the [facility] Pulmonary Function Laboratory utilizes race neutral GLI [...] anomalous origin of the coronary arteries. The pechanga coronary arteries are heavily calcified. Right coronary [...] disease seen throughout the extent of the pechanga left anterior descending artery. The calculated calcium [...] anomalous origin of the coronary arteries. The pechanga coronary arteries are heavily calcified. Right coronary [...] disease seen throughout the extent of the pechanga left anterior descending artery. The calculated calcium [...] 1:22 PM CDT 07/25/2024 1:22 PM CDT Justin Dang MD LAB POCT ORDERABLE S - DEVICE Final Result [facility] Department [place] [address] * Dexa Bone Density (05/19/2022 10:05 AM CLOUD ENGINEER) Anatomical Region Laterality Modality Wrist N/A Digital Radiogra phy 05/19/2022 10:0 8 AM CLOUD ENGINEER Impressions 05/19/2022 11:00 AM CLOUD ENGINEER 1. The bone mineral density of the [...] by: DO Prince Brenner 05/19/2022 11:00 AM CLOUD ENGINEER BONE DENSITOMETRY OF THE SPINE AND HIP [...] by: Baldemar Rae DO Azul Israel MD IMJudy DXA PROCEDURES Final Res ult from Last 3 Months or Most Recently Relevant to Health Maintenance Insurance MEDICARE MEDICARE [facility] MEDICARE [facility] Care Teams Room Service Food Service Attendant Relationship Specialty Start Date End Date Justin Dang MD [address] [place] [address] PCP - General 06/26/16 Judi Brooke, [facility] Registered Nurse Pulmonary Disease 04/28/22 Azul Israel MD Referring Physician Pulmonary Disease 02/23/23 Leodan Campo MD Consulting Physician Cardiology 02/23/23
== END 2024-08-31 09:25 | disposition home or self-care (01) ==
PROVIDERS: PCP Family Medicine Adolescent Medicine; Visit Provider Otolaryngology
DX: I65.23 Occlusion and stenosis of bilateral carotid arteries (principal)
CPT/HCPCS: 93880

== ENCOUNTER 2025-01-25 14:26 | Inpatient (IN) | payer MEDICARE, SELFPAY ==
--- OUTSIDE RECORDS SUMMARY | 2009-09-24 10:15 | XMS_ITS | Continuity of Care Document ---
Author Organization [facility] Address [address] [facility] [address] [place] [address] Phone Care Team Providers Care Veterinary Nurse Name Role Phone Miracle Butler Unavailable Unavailable Procedures Procedure Date Post-op Follow-up Visit Post-op Follow-up Visit After Cataract Laser Surgery Eye Exam Established Pt Eye Exam & Treatment Refraction Post-op Follow-up Visit Post-op Follow-up Visit After Cataract Laser Surgery Eye Exam Established Pt Eye Exam & Treatment Eye Exam & Treatment Office/outpatient Visit, Est Advance Directives Directive Yes / No Effective Date File Name No Information Encounters Encounter Description Practice Location Reason(s) For Visit Diagnoses Date Provider Providers Copied [facility], [address] [place] [address] [address], [place], [place], [address], tel:[phone] [facility] No Information 9-201 0 Carrie Rausch. [address] , [address], [place], [address], [place]. tel:[phone] [facility], [address] [place] [address] [address], [place], [place], [address], tel:[phone] [facility] No Information 0-201 0 Simon OD Ronny. [address], [place], [place], [facility], . tel:[phone] [facility], [address] [place] [address] [address], [place], [place], [address], tel:[phone] [facility] No Information May-1 9-201 0 Butler Miracle. [address] , [address], [place], [place], [facility], [place]. tel:[phone] [facility], [address] [place] [address] [address], [place], [place], [address], [place] tel:[phone] [facility] No Information July- 1-201 0 Butler Miracle. [address] , [address], [place], [place], [facility], . tel:[phone] [facility], [address] [place] [address] [address], [place], [place], [address], tel:[phone] [facility] No Information Oct-2 0-200 9 Butler Miracle. [address] , [address], [place], [facility], [place]. tel:[phone] [facility], [address] [place] [address] [address], [place], [place], [address], tel:[phone] [facility] No Information Sep-2 6-200 8 Butler Miracle. [address] , [address], [place], [facility], [place]. tel:[phone] [facility], [address] [place] [address] [address], [place], [place], [address], [place] tel:[phone] [facility] No Information Sep-0 4-200 8 Simon OD Ronny. [address] , [address], [place], [facility], [place]. tel:[phone] [facility], [address] [place] [address] [address], [place], [place], [address], [place] tel:[phone] [facility] No Information 0 200 8 Carrie Orr [address] , [address], [place], [facility], [place]. tel:[phone] [facility], [address], [place], [place], [address], [place] tel:[phone] [facility] No Information 200 8 Carrie Orr [address] , [address], [place], [facility], [place]. tel:[phone] Referring Provider: Miracle Triana, [address], [place], [facility]. tel:[phone] [facility], [address] [place] [address] [address], [place], [place], [address], [place] tel:[phone] [facility] No Information 8 Carrie Orr [address] , [address], [place], [facility], [place]. tel:[phone] [facility], [address] [place], [place], [place], [address], [place] tel:[phone] [facility] No Information 7 Carrie Orr [address], [place], [facility], [place]. tel:[phone] Office/outpat ient Visit, Est [facility], [address], [place], [place], [address], [place] tel:[phone] [facility] No Information 200 7 Carrie Orr [address] , [address], [place], [facility], [place]. tel:[phone] Family History Family Member Type Diagnosis Age At Onset No Information Payers Payer name Insurance type Covered green party ID Authoriza tion(s) No Information Social History Type Description Quantity Date Captured Comments Sex Female Smoking Status No Information Chief Complaint And Reason For Visit No Information Reason For Referral Reason For Referral No Information History Of Present Illness Encounter Date Complaint History Of Prese nt Illness No Information Functional Status Date Functional Assessmen t No Information Instructions Date Instruction Additional Infor mation No Information Assessments Type Assessment Date No Information Patient Care Teams Name Effective Dates (start - stop) Status Members No Information
[2025-01-25] VITALS (19 sets, daily range): BP systolic 132–156; BP diastolic 60–92; PULSE 70–98; RESP 14–21; TEMP 36.6–36.8; O2SAT 95–100; BMI 28.8
--- NOTE | ~2025-01-25 | CT_ITS ---
CTA CHEST CLINICAL HISTORY: cp, +dimer . COMPARISON: Chest x-ray today TECHNIQUE: Helical CTA performed from thoracic inlet to upper abdomen IV contrast information not listed in PACS Coronal, sagittal reformats. Multiplanar MIPS CT images acquired with automatic exposure control for dose reduction DLP: 170 mGy-cm FINDINGS: Pulmonary arteries: No PE. Thoracic Aorta: No dissection or aneurysm. Atherosclerotic disease. Heart/pericardium: Unremarkable. RV/LV ratio: Normal. Lungs/Pleura: Mild bibasilar atelectasis and/or scarring. Biapical scarring. Tracheobronchial tree: Mild bibasilar mucous plugging. Nodes: No enlarged nodes. Bones: No acute bony abnormality. Soft tissues: Unremarkable. Visualized upper abdomen: Renal pelviectasis. Hepatic steatosis. Cholecystectomy. Small hiatal hernia. IMPRESSION: 1. No PE or other acute cardiopulmonary findings. Reviewed, dictated and finalized at location R.
--- NOTE | ~2025-01-25 | US_ITS ---
EXAMINATION: US venous doppler [facility], 01/26/2025 8:10 CDT HISTORY: Elevated D-dimer COMPARISON: None Technique: Agustin-scale and color Doppler images were attempted of the lower saphenofemoral junction, common femoral vein,superficial femoral vein, proximal deep femoral vein, proximal deep femoral vein, popliteal vein and posterior tibial veins. Findings: Deep Venous System:Normal flow, augmentation and compressibility. No echogenic thrombus identified. Superficial Venous SystemNo superficial thrombophlebitis. Soft tissues: Soft tissues are unremarkable. Impression: Negative for DVT. Reviewed, dictated and finalized at location P. Impression: Negative for DVT.
--- NOTE | ~2025-01-25 | XR_ITS ---
EXAM/PROCEDURE: XR chest 2V HISTORY: Chest pain COMPARISON: None available. TECHNIQUE: Two view(s) of the chest. FINDINGS: LUNGS: Clear of acute processes. PLEURAL SPACES: Clear. There is blunting of the right costophrenic angles, present on chest CT of 2016, and thought to be chronic. HEART/ MEDIASTINUM: Normal in appearance. SOFT TISSUES: No significant findings. BONES: No acute osseous abnormality. There are sternotomy wires. IMPRESSION: No acute findings. Reviewed, dictated and finalized at location A. IMPRESSION: No acute findings.
--- NOTE | 2025-01-25 14:33 | ECG_ITS ---
Test Date: 2025-01-25 14:30:48 Measurements Intervals [place] Rate: 80 P: 22 MN: 165 QRS: 6 QRSD: 95 T: 116 QT: 376 QTc: 436 Interpretive Statements SINUS RHYTHM LEFT VENTRICULAR HYPERTROPHY WITH ST-T CHANGE CONSIDER ANTERIOR INFARCT, AGE INDETERMINATE CONSIDER INFERIOR INFARCT, AGE INDETERMINATE ST-T WAVE ABNORMALITY IN LATERAL LEADS- CONSIDER ISCHEMIA BASELINE ARTIFACT- II, III, AVF ABNORMAL ECG No previous ECG available for comparison Electronically Signed On 01-25-2025 14:36:52 CDT by Sg Rose D.O.
[2025-01-25 14:55] LABS: Hematocrit 35.6 % (37.0-47.0); Hemoglobin 11.7 g/dL (12.0-15.0); Immature Granulocyte Percent A 0.4 % (0-0.5); Lymphocytes Absolute Auto 2.37 K/mm3 (0.9-3.2); Mean Corpuscular HGB Conc 32.9 g/dl (32-36); Mean Corpuscular Hemoglobin 29.7 pg (26-34); Mean Corpuscular Volume 90.4 fl (80-100); Nucleated Red Blood Cells Absolute Auto 0.000 K/mm3 (0.0-0.012); Nucleated Red Blood Cells Perc 0.0 % (0.0-0.2); Platelet Count Result 244 k/mm3 (150-375); Red Blood Count 3.94 M/mm3 (4.2-5.4); White Blood Count 10.7 K/mm3 (4.5-10.0)
[2025-01-25 15:07] LABS: Alanine Aminotransferase 17 U/L (6-35); Albumin Level 3.5 g/dL (3.5-5.1); Alkaline Phosphatase 51 U/L (38-126); Anion Gap 3 mmol/L (4-12); Aspartate Amino Transferase 23 U/L (14-36); Bilirubin,Total 1.1 mg/dL (0.2-1.3); Blood Urea Nitrogen 20 mg/dL (7-17); Calcium 9.0 mg/dL (8.4-10.2); Carbon Dioxide 31 mmol/L (22-30); Chloride 102 mmol/L (98-107); Estimated CRCL calculation 36 ml/min; Estimated Glomerular Filt Rate > 60; Glucose 112 mg/dL (65-110); Lipase 40 U/L (23-300); Potassium 2.9 mmol/L (3.4-5.0); Sodium 136 mmol/L (137-145); Total Protein 6.5 g/dL (6.3-8.2)
[2025-01-25 15:08] LABS: INR 1.1; Partial Thromboplastin Time 29.6 Seconds (22.3-36.8); Prothrombin Time 13.7 Seconds (11.1-14.7)
[2025-01-25 15:18] LABS: Troponin I 0.014 ng/mL (0.000-0.034)
--- OUTSIDE RECORDS SUMMARY | 2025-01-25 17:49 | XMS_ITS | Clinical Summary ---
Author Organization [facility] Address [address] [place] [address] Care Team Providers Care Field Organizer Name Role Phone Unavailable Primary Care Provider Unavailabl e Social History Tobacco Use Types Packs/Day Years Used Date Smoking Tobacco: Never Assessed Comments Unknown Sex and Gender Information Value Date Recorded Sex Assigned at Not on file Legal Sex Female 5:58 PM CDT Gender Identity Not on file Sexual Orientation Not on file Plan of Treatment Health Maintenance Due Date Last Done Comments DTaP, Tdap and Td Vaccines ( 1 - Tdap) 08/26/1958 Pneumococcal Vaccine: 50+ Ye ars (1 of 1 - PCV) 08/26/1989 Zoster Vaccines (1 of 2) 08/26/1989 RSV Immunization or 60+ Years (1 - 1-dose 75+ series) 08/26/2014 COVID-19 Vaccine ( - 2024-2 6 season) 2024 Influenza Adult (#1) 2024 Hepatitis A Vaccines Aged Out No long er eligible based on patient's age to complete this topic Meningococcal B Vaccine Aged Out No l onger eligible based on patient's age to complete this topic Meningococcal Vaccine Aged Out No deepak dhiraj eligible based on patient's age to complete this topic RSV Immunizations Under 20 Months Aged Out No longer eligible based on patient's age to complete this topic
--- OUTSIDE RECORDS SUMMARY | 2025-01-25 17:49 | XMS_ITS | Clinical Summary ---
Author Organization [facility] Address [address] [place] [address] Care Team Providers Care Ski Base Trimmer Name Role Phone Justin Dang MD Primary Care Prov ider Judi Brooke RN Unavailable Carrol Azul Rmaan MD Unavailable [phone] Leodan Campo MD Unavailable [phone] Allergies Active Allergy Reactions Criticality Noted Date Comments Meperidine Nausea & Vomiting Low Opioids - Morphine Analogues Nausea & Vomiting Low Sulfa (Sulfonamide Antibiotics) Itching Low Medications aspirin 81 mg chewable tablet chew 1 tablet (81MG) by oral route every day 0 2 Active bepotastine besilate 1.5 % drops 2 Active azelastine (OPTIVAR) 0.05 % ophthalmic solution Administer 2 drops into both eyes daily 3 Active fluorometholone (FML) 0.1 % ophthalmic suspension Administer 2 drops into both eyes daily 2 Active epinastine 0.05 % ophthalmic solution 3 Active escitalopram (LEXAPRO) 10 mg tablet 3 Active levothyroxine (SYNTHROID) 88 mcg tablet 3 Active montelukast (SINGULAIR) 10 mg tablet TAKE ONE TABLET BY MOUTH AT BEDTIME 30 tablet [address] (PROTONIX) 40 mg EC tablet Take 1 tablet (40 mg total) by mouth daily 5 Active tobramycin-dexAMET Hasone (TOBRADEX) ophthalmic solution Administer 1 drop into both eyes every 2 (two) hours while awake 5 Active levothyroxine (SYNTHROID) 100 mcg tablet Take 1 tablet (100 mcg total) by mouth hedis specialist before breakfast 5 Active amLODIPine (NORVASC) 10 mg tablet Take 1 tablet (10 mg total) by mouth daily 30 tablet 11 5 026 Active albuterol HFA (PROVENTIL HFA,VENTOLIN HFA,PROAIR HFA) 90 mcg/actuation inhaler INHALE TWO (2) PUFFS EVERY 4 (FOUR) HOURS NEEDED FOR WHEEZING 8.5 g 11 5 Active mirtazapine (REMERON) 15 mg tablet 5 Active ezetimibe (ZETIA) 10 mg tablet TAKE ONE TABLET (10 MG) BY MOUTH DAILY 90 tablet 3 5 Active losartan (COZAAR) 100 mg tablet TAKE ONE TABLET (100 MG TOTAL) BY MOUTH DAILY 90 tablet 3 5 Active meclizine (ANTIVERT) 25 mg tablet 5 Active ondansetron ODT (ZOFRAN-ODT) 4 mg disintegrating tablet 5 Active hydroCHLOROthiazid e (HYDRODIURIL) 25 mg tablet TAKE ONE TABLET (25 MG) BY MOUTH DAILY 90 tablet 2 5 Active isosorbide mononitrate ER (IMDUR) 120 mg 24 hr tablet TAKE ONE TABLET (120 MG TOTAL) BY MOUTH EVERY MORNING 90 tablet 5 Active umeclidinium-vilan teroL (Anoro Ellipta) 62.5-25 mcg/actuation blister with device Inhale 1 puff daily 90 each 3 5 Active predniSONE (DELTASONE) 5 mg tablet Take 1 tablet (5 mg) by mouth daily 30 tablet 2 5 Active atorvastatin (LIPITOR) 80 mg tablet TAKE ONE TABLET BY MOUTH DAILY 90 tablet 1 5 Active metoprolol (LOPRESSOR) 100 mg tabletIndications: 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 TAKE 1/2 (HALF) TABLET (50 MG) BY MOUTH TWICE A DAY 90 tablet 3 5 Active nitroglycerin 400 mcg/spray sprayIndications:C oronary artery disease involving huslia coronary artery of huslia heart without angina pectoris PLACE ONE SPRAY UNDER THE TONGUE EVERY 5 (FIVE) MINUTES NEEDED FOR CHEST FOR PAIN 4.9 g 1 5 Active mirtazapine (REMERON) 30 mg tablet 5 Active clopidogreL (PLAVIX) 75 mg tablet TAKE ONE TABLET BY MOUTH DAILY 90 tablet 2 5 Active Active Problems Problem Noted Date Diagnosed Date Severe persistent asthma without complication Hx of CABG 10/22/2021 Peripheral artery disease 10/22/2021 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 Continue aspirin and Plavix. Nitroglycerin spray refilled. Assessment & Plan (04/01/2020 2:54 PM HUMANITIES COORDINATOR): Mild stable exertional chest discomfort. She is on maximum tolerated medical therapy. No change made. Assessment & Plan (06/22/2019 1:46 PM CDT): Very rare episodes of nitrate responsive chest discomfort. Assessment & Plan (12/04/2018 7:19 PM CDT): Symptoms are stable. Continue current regimen. Assessment & Plan (05/16/2018 11:55 AM HUMANITIES COORDINATOR): Symptoms are stable on beta-yrn and nitrate therapy. Continue dual anti- platelet therapy as well. Assessment & Plan (11/19/2017 4:23 PM CDT): No recent symptoms of chest discomfort. Arm discomfort proved to be noncardiac. Assessment & Plan (04/23/2017 10:39 AM HUMANITIES COORDINATOR): Exertional chest discomfort, relieved by rest. She [...] made. Assessment & Plan (04/01/2020 2:54 PM HUMANITIES COORDINATOR): Blood pressure is adequately controlled on current regimen. No change was made. Assessment & Plan (06/22/2019 1:47 PM CDT): Blood pressure is adequately controlled on current regimen. No change was made. Assessment & Plan (12/04/2018 7:19 PM CDT): Blood pressure is adequately controlled on current regimen. No change was made. Assessment & Plan (05/16/2018 11:55 AM HUMANITIES COORDINATOR): Blood pressure is adequately controlled on current regimen. No change was made. Assessment & Plan (11/19/2017 4:24 PM CDT): Blood pressure is adequately controlled on current regimen. No change was made. Assessment & Plan (04/23/2017 10:39 AM HUMANITIES COORDINATOR): Blood pressure is adequately controlled on current regimen. No change was made. Assessment & Plan (10/22/2016 2:12 PM CDT): Blood pressure is adequately controlled on current regimen. No change was made. Mixed hyperlipidemia 10/22/2016 Assessment & Plan (12/16/2020 11:07 AM CDT): On chronic lipid lowering therapy with good control. No changes made. Assessment & Plan (04/01/2020 2:54 PM HUMANITIES COORDINATOR): On chronic lipid lowering therapy with good control. No changes made. Assessment & Plan (06/22/2019 1:47 PM CDT): On chronic lipid lowering therapy with good control. No changes made. Assessment & Plan (12/04/2018 7:19 PM CDT): On chronic lipid lowering therapy with good control. No changes made. Assessment & Plan (05/16/2018 11:55 AM HUMANITIES COORDINATOR): On chronic lipid lowering therapy with good control. No changes made. Assessment & Plan (11/19/2017 4:24 PM CDT): On chronic lipid lowering therapy with good control. No changes made. Assessment & Plan (04/23/2017 10:39 AM HUMANITIES COORDINATOR): On chronic lipid lowering therapy with good [...] strongly prefers to have this done at [place]. Asthma 10/16/2015 02/22/2023 Chronic obstructive pulmonary disease 06/26/2015 10/07/2023 Cough 02/26/2015 02/22/2023 Shortness of breath 10/07/19 24 Encounters Date Type Department Care Team Description 12/04/2024 9:30 AM CDT Office Visit [facility] [address] [place] [address] [place] [address] Letitia Myers NP SOB (shortness of breath) (Primary Dx); Physical deconditioning; Severe persistent asthma without complication (HCC); Seasonal allergies; Immunization counseling; Gastroesophageal reflux disease without esophagitis; On prednisone therapy 12/04/2024 9:10 AM CDT - 12/04/2024 11:59 PM CDT Hospital Encounter [facility] [address] [address] [place] [address] Severe persistent asthma without complication (HCC) Discharge Disposition: Discharge to home or self care 11/02/2024 Telephone [facility] Cardiology [address] [place] [phone] Max Perez MD 10/27/2024 11:15 AM CDT Ancillary Procedure [facility] Cardiology [address] [place] [phone] Edema, unspecified type; Atherosclerosis of huslia coronary artery without angina pectoris, unspecified whether huslia or transplanted heart from Last 3 Months Immunizations Immunization Administration [...] on file Legal Sex Female 11:25 AM HUMANITIES COORDINATOR Gender Identity Not on file Sexual Orientation Not on file Obstetrics History Last Filed Vital Signs Vital Sign Reading Time Taken Comments Blood Pressure 133/73 12/04/2024 9:30 AM CDT Pulse 71 12/04/2024 9:30 AM CDT Temperature 36.3 C (97.4 F) 12/04/2024 9:30 AM CDT Respiratory Rate 18 12/04/2024 9:30 AM CDT Oxygen Saturation 99% 12/04/2024 9:30 AM CDT Inhaled Oxygen Concentration - - Weight 65.8 kg (145 lb) 12/04/2024 9:30 AM CDT Height 154.9 cm (5' 1) 12/04/2024 9:30 AM CDT Body Mass Index 27.4 12/04/2024 9:30 AM CDT Plan of Treatment Health Maintenance Due Date Last Done Comments Depression Screening 1940 Fall Risk Assessment 1940 DTaP/Tdap/Td Vaccine (1 - Tdap) 08/26/1950 Hepatitis B Screening 08/26/1957 Pneumococcal vaccine 65+ (1 of 2 - PCV) 08/26/1958 Zoster Vaccine (1 of 2) 08/26/1989 Well Visit 65+ 08/26/2004 Osteoporosis Screening-Bone Density Scan 05/19/2024 05/19/2022 Covid-19 Vaccine (4 - 2024-2 6 season) 2024 03/13/2021, 06/16/2020, 05/26/2020 Influenza Vaccine (#1) 2024 , 01/13/2022, 02/17/2015, Additional history exists Procedures Procedure Name Priority Date/Time Associated Diagnosis Comments PULMONARY FUNCTION TEST (PFT) Routine 12/04/2024 9:23 AM CDT Severe persistent asthma without complication (HCC) TRANSTHORACIC ECHO (TTE) COMPLETE W DOPPLER/CF WO CONTRAST Routine 10/27/2024 12:47 PM CDT Edema, unspecified type Atherosclerosis of huslia coronary artery without angina pectoris, unspecified whether huslia or transplanted heart DEXA APPENDICULAR BONE DENSITY Schedule Routine, Read Routine (OP Routine) 05/19/2022 10:05 AM HUMANITIES COORDINATOR Adverse effect of prednisone, sequela Post-menopausal from Last 3 Months or Most Recently Relevant to Health Maintenance Results * Pulmonary Function Test - (12/04/2024 9:23 AM CDT) Pathologist [facility] FVC PRE 1.46 L [facility] FVC %PRE PRED 67 % [facility] FEV1 PRE 0.97 L [facility] FEV1 %PRE PRED 58 % [facility] FEV1/FVC PRE 66.4 % [facility] Anatomical Region Laterality Modality PFT 12/04/2024 9:19 AM CDT Narrative 12/04/2024 12:33 PM CDT PFT performed at:->[facility] Adult PFT Lab- [id number] Procedure:->Spirometry Pulmonary Function Test Interpretation SPIROMETRY: There is scooping of the expiratory limb of the flow-volume curve, consistent with expiratory airflow obstruction. There is a decrease in expiratory airflow at middle lung volumes. The FEV1 to FVC ratio is normal. The decreased expiratory flow and FEV1 and FVC are consistent with a combined restrictive and obstructive abnormality. The inspiratory loop is appropriate for the expiratory flow abnormality. Impression: There is a moderately severe obstructive defect. Measurement of lung volumes is suggested to rule out coexisting restriction. Compared with most recent study, there has been significant interval worsening of the FVC. Henrique Oconnell MD The attending pulmonary physician certifies a physician presence in the [facility] during the administration of aerosolized bronchodilator. The attending pulmonary physician certifies that he/she has reviewed and interpreted the graphic and numerical data of this pulmonary function study and agrees with the written final report. The lower limit of normal for PaO2 and %HbO2 is age dependent. However, the [facility] Pulmonary Function Laboratory defines hypoxemia as a PaO2 <56 mm Hg or a %HbO2 <89%. Starting on March of 2024 the [facility] Pulmonary Function Laboratory utilizes race neutral GLI Global normative equations. us Letitia Myers HOOKER UP PFT ORDERABLES Final Res ult * TRANSTHORACIC ECHO (TTE) COMPLETE W DOPPLER/CF WO CONTRAST (10/27/2024 12:47 PM CDT) EF Mod BP 61 % CONS SCIMAGE Anatomical Region Laterality Modality Ultrasound 10/27/2024 11:1 7 AM CDT Narrative 10/27/2024 1:11 PM CDT [facility] Cardiology [address], [place] [address] [address] [facility] [address], [place] [address] P:[phone] P:[phone] Echocardiographic Report Patient Name: BROCK MOORE M : 1940 Study Date: 10/27/2024 11:17:35 AM Gender: F Boat Tender: Monica Hamilton)(CT), [facility] Location: [facility] Provider: JUSTIN DANG Height(Cm): 155 BSA: 1.7 Weight(Kg): 67.1 Heart Rate: 80 BP: 122 / 58 Quality: Good Order Provider: JUSTIN DANG PROCEDURES: Echocardiographic Report: Transthoracic echocardiogram with complete 2D, M-Mode, and color Doppler examination. With Strain Analysis. INDICATIONS: R60.9 Edema, unspecified and I25.10 Atherosclerotic heart disease of huslia coronary artery without angina pectoris. MEASUREMENTS: 2D/MM Value Range Doppler Value Range EF Mod BP 61 % [ 54 - 74 ] HUDSON Vmax 2.40 cm2 [ 2.00 - 4.00 ] LV GLS -17.70 % AV Mean PG 6 mmHg LVIDd 2D 4.39 cm [ 3.80 - 5.20 ] AV Peak Guy 1.56 m/s [ 1.00 - 1.70 ] LVIDs 2D 3.05 cm [ 2.20 - 3.50 ] AV Peak PG 10 mmHg LVPWd 2D 0.73 cm [ 0.60 - 0.90 ] AV VTI 35.14 cm IVSd 2D 0.73 cm [ 0.60 - 0.90 ] LVOT Diam 1.89 cm [ 1.70 - 2.10 ] AoR Diam 2D 2.99 cm [ 2.70 - 3.70 ] LVOT Peak Guy 1.34 m/s [ 0.70 - 1.10 ] LA Volume 19.63 ml [ 22.00 - 52.00 ] LVOT VTI 29.74 cm LA Volume Index 12 cc/m2 [ 16 - 28 ] PV Peak Guy 1.14 m/s [ 0.40 - 0.80 ] RA Volume 18.72 ml TR Peak Guy 2.26 m/s [ 1.00 - 2.80 ] TR Peak PG 21 mmHg RVSP 28.00 mmHg [ 10.00 - 36.00 ] RV S` 11.35 mmHg Tapse 1.95 cm [ 1.71 - 5.00 ] 2D/MM Value Range Doppler Value Range - FINDINGS: Interpretation Site: Exam was interpreted at [facility]. Left Ventricle: Normal left ventricular size. Normal left ventricular wall thickness. Normal global left ventricular systolic function. Impaired diastolic relaxation Grade I. Ejection fraction is measured at 61 %. Global Longitudinal Strain is -18 %. Right Ventricle: Normal right ventricular size. Normal right ventricular systolic function. Left Atrium: The left atrium is normal in size. Right Atrium: The right atrium is normal in size. Atrial Septum: Normal atrial septum. Mitral Valve: Normal appearance of the mitral valve. No mitral valve regurgitation is seen. Aortic Valve: Aortic valve not well visualized. No evidence of hemodynamically significant aortic stenosis by Doppler. Moderate aortic valve regurgitation. Tricuspid Valve: Normal appearance of the tricuspid valve. Estimated peak RVSP is 28 mmHg. Trivial regurgitation in the tricuspid valve. Pulmonic Valve: Pulmonic valve not well visualized. Pericardium: Small pericardial effusion. There is an anterior echo free space consistent with epicardial fat pad. Aorta: Normal aortic root. IVC: Normal size and normal respiratory collapse consistent with normal right atrial pressure (<5 mmHg). CONCLUSIONS: Normal left ventricular size and wall thickness. Normal global left ventricular systolic function. Impaired diastolic relaxation Grade I. Ejection fraction is measured at 61 %. Global Longitudinal Strain is -18 %. Normal right ventricular size and systolic function. Normal appearance of the mitral valve. No significant MR. Aortic valve not well visualized. No hemodynamically significant aortic stenosis by Doppler. Moderate aortic valve regurgitation. EROA 0.2 cm2; regurgitant volume 44 mL. Estimated RVSP 28 mmHg. Trivial regurgitation in the tricuspid valve. Electronically Signed By: Max Perez MD, [facility] 10/27/2024 1:11:13 PM CDT Procedure Note Max Perez MD - 10/27/2024 [facility] Cardiology [address] [facility] [address] [id number] [address] [facility] [facility] [address] [place], [place] [address] P:[phone] P:[phone] Echocardiographic Report Patient Name: BROCK MOORE M : 1940 Study Date: 10/27/2024 11:17:35 AM Gender: F Boat Tender: Monica Lovelace (Brittany)([place]), [facility] Location: [facility] Provider: JUSTIN DANG Height(Cm): 155 BSA: 1.7 Weight(Kg): 67.1 Heart Rate: 80 BP: 122 / 58 Quality: Good Order Provider: JUSTIN DANG PROCEDURES: Echocardiographic Report: Transthoracic echocardiogram with complete 2D, M-Mode, and color Dopplerexamination. With Strain Analysis. INDICATIONS: R60.9 Edema, unspecified and I25.10 Atherosclerotic heart disease ofnative coronary artery without angina pectoris. MEASUREMENTS: 2D/MM Value Range Doppler ValueRange EF Mod BP 61 % [ 54 - 74 ] HUDSON Vmax 2.40cm2 [ 2.00 - 4.00 ] LV GLS -17.70 % AV Mean PG 6mmHg LVIDd 2D 4.39 cm [ 3.80 - 5.20 ] AV Peak Guy 1.56m/s [ 1.00 - 1.70 ] LVIDs 2D 3.05 cm [ 2.20 - 3.50 ] AV Peak PG 10mmHg LVPWd 2D 0.73 cm [ 0.60 - 0.90 ] AV VTI 35.14cm IVSd 2D 0.73 cm [ 0.60 - 0.90 ] LVOT Diam 1.89cm [ 1.70 - 2.10 ] AoR Diam 2D 2.99 cm [ 2.70 - 3.70 ] LVOT Peak Guy 1.34m/s [ 0.70 - 1.10 ] LA Volume 19.63 ml [ 22.00 - 52.00 ] LVOT VTI 29.74cm LA Volume Index 12 cc/m2 [ 16 - 28 ] PV Peak Guy 1.14m/s [ 0.40 - 0.80 ] RA Volume 18.72 ml TR Peak Guy 2.26m/s [ 1.00 - 2.80 ] TR Peak PG 21 mmHg RVSP 28.00 mmHg [ 10.00 - 36.00 ] RV S` 11.35 mmHg Tapse 1.95 cm [ 1.71 - 5.00 ] 2D/MM Value Range Doppler ValueRange - FINDINGS: Interpretation Site: Exam was interpreted at [facility]. Left Ventricle: Normal left ventricular size. Normal left ventricular wall thickness.Normal global left ventricular systolic function. Impaired diastolic relaxation Grade I.Ejection fraction is measured at 61 %. Global Longitudinal Strain is -18 %. Right Ventricle: Normal right ventricular size. Normal right ventricular systolicfunction. Left Atrium: The left atrium is normal in size. Right Atrium: The right atrium is normal in size. Atrial Septum: Normal atrial septum. Mitral Valve: Normal appearance of the mitral valve. No mitral valve regurgitation isseen. Aortic Valve: Aortic valve not well visualized. No evidence of hemodynamicallysignificant aortic stenosis by Doppler. Moderate aortic valve regurgitation. Tricuspid Valve: Normal appearance of the tricuspid valve. Estimated peak RVSP is 28 mmHg.Trivial regurgitation in the tricuspid valve. Pulmonic Valve: Pulmonic valve not well visualized. Pericardium: Small pericardial effusion. There is an anterior echo free spaceconsistent with epicardial fat pad. Aorta: Normal aortic root. IVC: Normal size and normal respiratory collapse consistent with normal rightatrial pressure (<5 mmHg). CONCLUSIONS: Normal left ventricular size and wall thickness. Normal global leftventricular systolic function. Impaired diastolic relaxation Grade I. Ejection fraction ismeasured at 61 %. Global Longitudinal Strain is -18 %. Normal right ventricular size and systolic function. Normal appearance of the mitral valve. No significant MR. Aortic valve not well visualized. No hemodynamically significant aorticstenosis by Doppler. Moderate aortic valve regurgitation. EROA 0.2 cm2; regurgitantvolume 44 mL. Estimated RVSP 28 mmHg. Trivial regurgitation in the tricuspid valve. Electronically Signed By: Max Perez MD, [facility] 10/27/2024 1:11:13 PM CDT us Justin Dang MD CV ECHO PROCEDURES Final Result * Dexa Bone Density (05/19/2022 10:05 AM HUMANITIES COORDINATOR) Anatomical Region Laterality Modality Wrist N/A Digital Radiogra phy 05/19/2022 10:0 8 AM HUMANITIES COORDINATOR Impressions 05/19/2022 11:00 AM HUMANITIES COORDINATOR 1. The bone mineral density of the [...] by: DO Prince Brenner 05/19/2022 11:00 AM HUMANITIES COORDINATOR BONE DENSITOMETRY OF THE SPINE AND HIP [...] Hip (Left) 0.920 -0.2 2.0 Procedure Note Butch Dominickip JoshDO kiara - 05/19/2022 BONE DENSITOMETRY OF THE SPINE [...] it. Electronically signed by: Baldemar Rae DO Authorberna Provider Result Type Result Stat Azul Israel MD IMG DXA PROCEDURES Final Res ult from Last 3 Months or Most Recently Relevant to Health Maintenance Insurance MEDICARE MEDICARE [facility] MEDICARE [facility] Care Teams Ski Base Trimmer Relationship Specialty Start Date End Date Justin Dang MD PCP - General 06/26/16 Judi Brooke, [facility] Registered Nurse Pulmonary Disease 04/28/22 Azul Israel MD Referring Physician Pulmonary Disease 02/23/23 Leodan Campo MD Consulting Physician Cardiology 02/23/23
--- OUTSIDE RECORDS SUMMARY | 2025-01-25 17:49 | XMS_ITS | Encounter Summary ---
Author Organization [facility] Address [address] [place] [address] Phone Care Team Providers Care Cdl A Driver Name Role Phone Justin Dang MD Primary Care Prov ider Judi Brooke RN Unavailable Carrol Azul Raman MD Unavailable [phone] Leodan Campo MD Unavailable [phone] Encounter Details Date Type Department Care Team [...] on file Legal Sex Female 11:25 AM LOOM OVERHAULER Gender Identity Not on file Sexual Orientation [...] on filedocumented in this encounter Care Teams Cdl A Driver Relationship Specialty Start Date End Date Justin Dang MD PCP - General 06/26/16 Judi Brooke, RN Registered Nurse Pulmonary Disease 04/28/22 Azul Israel MD Referring Physician Pulmonary Disease 02/23/23 Leodan Campo MD Consulting Physician Cardiology 02/23/23 documented as of this encounter
--- OUTSIDE RECORDS SUMMARY | 2025-01-25 17:49 | XMS_ITS | Encounter Summary ---
Author Organization 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
[2025-01-25 18:01] LABS: Magnesium 1.7 mg/dL (1.6-2.3)
--- NOTE | 2025-01-25 18:09 | ECG_ITS ---
Test Date: 2025-01-25 18:14:34 Measurements Intervals [place] Rate: 72 P: 40 NH: 175 QRS: -12 QRSD: 95 T: 119 QT: 397 QTc: 436 Interpretive Statements SINUS RHYTHM LEFT VENTRICULAR HYPERTROPHY AND ST-T CHANGE INFERIOR INFARCT, AGE INDETERMINATE ST-T WAVE ABNORMALITY IN LATERAL LEADS- CONSIDER ISCHEMIA ABNORMAL ECG Compared to ECG 01/25/2025 14:30:48 NO SIGNIFICANT CHANGE Electronically Signed On 01-25-2025 19:08:30 CDT by Sg Rose D.O.
[2025-01-25 18:13] LABS: Troponin I 0.013 ng/mL (0.000-0.034)
[2025-01-25] MEDS: MAGNESIUM SULF 2 GM/WATER 50ML 2 GM/50 ML BAG IVPB (19:07)
[2025-01-25] MEDS: POTASSIUM CHLORIDE 20 MEQ ER TABLET 40 MEQ PO (19:07)
--- NOTE | 2025-01-25 19:21 | ED.CHESTPAIN ---
HPI - Chest Pain General Chief Complaint: Chest Pain <Mary Brownlee PA-C - Last Filed: 01/25/25 21:48> Stated Complaint: CP <KAUR Pathak Last Filed: 01/25/25 21:48> Time Seen by Provider: 01/25/25 17:03 <Mary Brownlee PA-C - Last Filed: 01/25/25 21:48> Source: patient and old records reviewed <Mary Brownlee PA-C - Last Filed: 01/25/25 21:48> Mode of arrival: ambulatory <KAUR Pathak Last Filed: 01/25/25 21:48> Limitations: no limitations <KAUR Pathak Last Filed: 01/25/25 21:48> History of Present Illness HPI narrative: Patient is an 84-year-old female who presents the ED with report of chest pain. Patient reports he was at the dentist's office today and developed midsternal chest pain described as a pressure. She used two nitroglycerin sprays and states the pain resolved. EMS was called. Patient does have history of previous CAD with stents and distant history of CABG (). Sees Dr. Perez. Reports she has saw him around 1-2 months ago and had imaging performed, which she states showed she had a partial blockage which they wanted to medically manage/watch for now. Patient has been off of her Plavix for the past 5 days for her dental procedure today. Denies feeling short of breath. Does report intermittent swelling of lower extremities. Denies recent cough or cold sx's. <KAUR Pathak Last Filed: 01/25/25 21:48> Related Data Home Medications: Home Medications ?Medication ?Instructions ?Recorded ?Confirmed ?Last Taken ?Type atorvastatin 80 mg tablet 80 mg PO DAILY 11/10/21 01/25/25 01/25/25 History clopidogrel 75 mg tablet 75 mg PO DAILY 11/10/21 01/25/25 01/20/25 History hydrochlorothiazide 100 mg tablet 25 mg PO DAILY 11/10/21 01/25/25 Unknown History isosorbide mononitrate 120 mg 120 mg PO DAILY 11/10/21 01/25/25 Unknown History tablet,extended release 24 hr metoprolol succinate 100 mg 50 mg PO BID 11/10/21 01/25/25 Unknown History tablet,extended release 24 hr umeclidinium 62.5 mcg-vilanterol 1 inh inhalation DAILY 11/10/21 01/25/25 Unknown History 25 mcg/actuation powdr for inhalation (Anoro Ellipta) epinastine 0.05 % eye drops 1 drp EACH EYE Q12H 06/21/24 01/25/25 Unknown History montelukast 10 mg tablet 10 mg PO DAILY 06/21/24 01/25/25 Unknown History nitroglycerin 0.3 mg sublingual 0.3 mg sublingual Q5M PRN chest 06/21/24 01/25/25 01/25/25 History tablet pain prednisone 5 mg tablet 5 mg PO DAILY 07/26/24 01/25/25 Unknown History amlodipine 10 mg tablet 5 mg PO DAILY 10/16/24 01/25/25 Unknown History aspirin 81 mg tablet 81 mg PO DAILY 10/16/24 01/25/25 Unknown History mirtazapine 30 mg tablet 15 mg PO QHS 01/25/25 01/25/25 Unknown History <Mary Brownlee PA-C - Last Filed: 01/25/25 21:48> Allergies/Adverse Reactions: Allergies Allergy/AdvReac Type Severity Reaction Status Date / Time meperidine Allergy Unknown N/V Verified 01/25/25 22:54 morphine Allergy Unknown N/V Verified 01/25/25 22:54 Sulfa (Sulfonamide Allergy Unknown ITCHING Verified 01/25/25 22:54 Antibiotics) tramadol AdvReac Unknown Nausea Verified 01/25/25 22:54 clarithromycin (From Biaxin) AdvReac Nausea Verified 01/25/25 22:54 hydrocodone (From Vicodin) AdvReac Nausea Verified 01/25/25 22:54 <Mary Brownlee PA-C - Last Filed: 01/25/25 21:48> Review of Systems Review of Systems: All systems reviewed & are unremarkable except as noted in HPI. <Mary Brownlee PA-C - Last Filed: 01/25/25 21:48> All systems reviewed & are unremarkable except as noted in HPI and below <Mary Brownlee PA-C - Last Filed: 01/25/25 21:48> [facility], [facility] Past Medical History Medical History: Medical History (Updated 01/26/25 @ 03:42 by Melissa Gamble APRN) Essential (primary) hypertension Atrophy of left kidney Cervicalgia Hypothyroid Aortic atherosclerosis 03/2013 COPD (chronic obstructive pulmonary disease) Moderate persistent asthma Pure hypercholesterolemia, unspecified Atherosclerotic heart disease of [place] coronary artery without angina pectoris <Mary Brownlee PA-C - Last Filed: 01/25/25 21:48> Surgical History Surgical History: Surgical History (Updated 01/26/25 @ 03:27 by Melissa Gamble APRN) H/O cardiac catheterization H/O tubal ligation H/O cataract extraction History of percutaneous transluminal coronary angioplasty x 4 History of coronary artery bypass graft 3 vessel History of cholecystectomy <Mary Brownlee PA-C - Last Filed: 01/25/25 21:48> Family History Family History: Family History Mother Acute myocardial infarction Heart disease Hypertension Other Asthma <KAUR Pathak Last Filed: 01/25/25 21:48> Social History Social History: Social History (Updated 01/26/25 @ 03:29 by Melissa Gamble APRN) Social History: Caffeine-coffee. She lives alone and is . She has 1 daughter. Code status: Full code Smoking status: Never smoker Second hand tobacco smoke exposure: No Alcohol intake: never Substance use: never Substance use type: does not use Lack of Transportation: No Lack of Food: Never True Current Housing: I Have Housing Concerned About Future Housing: No Difficulty Paying Gas/Electric Bills: No Difficulty Paying for Meds: No Currently Unemployed: No Education: High School Diploma/GED Difficulty w/ Childcare or Family Care: No Living arrangements: with family Occupation/Education: retired Gender identity (if verbalized by the patient): Female Spiritual care concerns: No Agree to blood products: Yes <KAUR Pathak Last Filed: 01/25/25 21:48> Exam Narrative: GENERAL: Well appearing, well-nourished, non-toxic, in no acute distress. HEAD: Normocephalic, atraumatic. RESPIRATORY: Airway patent, respirations nonlabored. Occasional faint wheezing, otherwise CTAB CARDIOVASCULAR: Regular rate and rhythm without murmurs, rubs, or gallops. MUSCULOSKELETAL: Moves all extremities. No gross deformities. No chest wall tenderness to palpation. No significant peripheral edema. SKIN: Warm, dry, normal color. NEURO: A&O X3. Speech clear. Cranial nerves II-XII grossly intact. Steady gait. No ataxic movements. PSYCHIATRIC: Appropriate mood and affect. Normal interaction. <Mary Brownlee PA-C - Last Filed: 01/25/25 21:48> Course FUNDS DEVELOPMENT DIRECTOR/PA Physician Supervision This visit was performed by both a physician and an APC. I performed all aspects of the MDM as documented. <Surinder Lobo MD - Last Filed: 01/26/25 03:52> Vital Signs Vital signs: Vital Signs Temperature 36.8 C 01/25/25 14:25 Pulse Rate 81 01/25/25 14:25 Respiratory Rate 16 01/25/25 14:25 Blood Pressure 140/92 H 01/25/25 14:25 Pulse Oximetry 97 01/25/25 14:25 Oxygen Delivery Room Air 01/25/25 14:25 Temperature 36.6 C 01/26/25 00:00 Pulse Rate 100 01/26/25 00:00 Respiratory Rate 16 01/26/25 00:00 Blood Pressure 154/78 H 01/26/25 00:00 Pulse Oximetry 96 01/26/25 00:00 Oxygen Delivery Room Air 01/25/25 23:11 <Mary Brownlee PA-C - Last Filed: 01/25/25 21:48> Vital Signs Temperature 36.8 C 01/25/25 14:25 Pulse Rate 81 01/25/25 14:25 Respiratory Rate 16 01/25/25 14:25 Blood Pressure 140/92 H 01/25/25 14:25 Pulse Oximetry 97 01/25/25 14:25 Oxygen Delivery Room Air 01/25/25 14:25 Temperature 36.6 C 01/26/25 00:00 Pulse Rate 100 01/26/25 00:00 Respiratory Rate 16 01/26/25 00:00 Blood Pressure 154/78 H 01/26/25 00:00 Pulse Oximetry 96 01/26/25 00:00 Oxygen Delivery Room Air 01/25/25 23:11 <Surinder Lobo MD - Last Filed: 01/26/25 03:52> MDM - Chest Pain MDM Narrative Medical decision making narrative: Patient presented to ED with substernal chest pain that began today while at dentist office. Resolved with nitroglycerin SAMPLE DISTRIBUTOR. Denied any current pain upon my evaluation. History of CAD/stents/CABG. Sees Dr. Perez. Vital signs are stable upon arrival. Patient is in no acute distress. EKG with some nonspecific ST depression diffusely Baseline troponin 0.014. Will continue to trend. Chest x-ray clear Laboratory studies with very minimal leukocytosis, anemia. Patient denies recent infectious symptoms. Potassium 2.9 on CMP. Given oral /IV replacement. Mag borderline at 1.7. Also given IV 2g replacement for this. Stable kidney function. D-dimer resulted elevated at 1.5 CTA of chest was obtained negative. No PE BNP WNL for age 3 hour EKG w/o interval changes, 3 hour Trop flat at 0.013 Patient called out to ED nurse that she was having increased chest pain/midsternal pressure. Repeat EKG was performed around 1999 showing acute STEMI changes with ST elevation in AVR, V1, this is new from previous EKGs. Diffuse ST elevation throughout. STEMI code was activated. Discussed case with Dr. Perez, interventional Cardiology, reviewed EKGs himself, advised no STEMI, consistent with diffuse ischemia. Recommended to start heparin bolus/drip, nitro drip if blood pressure able to tolerate, likely catheterization tomorrow. Trend trops. Keep NPO. Resume ASA, plavix, statin. Discussed case with Dr. Rubi, willow worker, accepted patient for admission. Discussed case with Melissa Gamble, FUNDS DEVELOPMENT DIRECTOR hospitalist, accepted patient for admission. Patient and family are in agreement with plan and need for admission. <Mary Brownlee PA-C - Last Filed: 01/25/25 21:48> Medical Records Data Attestation: I reviewed the patient's medical records. <Mary Brownlee PA-C - Last Filed: 01/25/25 21:48> Lab Data Attestation: I reviewed the patient's lab results. <Mary Brownlee PA-C - Last Filed: 01/25/25 21:48> Result diagrams: 01/25/25 14:50 01/25/25 14:50 <Mary Brownlee PA-C - Last Filed: 01/25/25 21:48> Labs: Lab Results 01/25/25 01/25/25 01/25/25 Range/Units 14:50 17:46 17:46 WBC 10.7 H (4.5-10.0) K/mm3 RBC 3.94 L (4.2-5.4) M/mm3 Hgb 11.7 L (12.0-15.0) g/dL Hct 35.6 L (37.0-47.0) % MCV 90.4 (80-100) fl MCH 29.7 (26-34) pg MCHC 32.9 (32-36) g/dl RDW 14.0 (11.5-14.5) % Plt Count 244 (150-375) k/mm3 MPV 9.2 (7.4-10.4) fl Immature Gran % (Auto) 0.4 (0-0.5) % Neut % (Auto) 61.3 (45.5-73.1) % Lymph % (Auto) 22.2 (18.3-44.2) % [place] % (Auto) 13.1 H (2.6-8.5) % Eos % (Auto) 2.4 (0-4.4) % Baso % (Auto) 0.6 (0.2-1.2) % Lymph # (Auto) 2.37 (0.9-3.2) K/mm3 [place] # (Auto) 1.4 H (0.1-0.6) K/mm3 Eos # (Auto) 0.3 (0-0.3) K/mm3 Baso # (Auto) 0.1 (0.0-0.1) K/mm3 Abs Immat Gran (auto) 0.04 H (0.00-0.031) K/mm3 Absolute Neuts (auto) 6.6 (1.3-6.7) K/mm3 Absolute Nucleated RBC 0.000 (0.0-0.012) K/mm3 Nucleated RBC % 0.0 (0.0-0.2) % PT 13.7 (11.1-14.7) Seconds INR 1.1 APTT 29.6 (22.3-36.8) Seconds D-Dimer 1.50 H (<0.48) ug/mL Sodium 136 L (137-145) mmol/L Potassium 2.9 L (3.4-5.0) mmol/L Chloride 102 (98-107) mmol/L Carbon Dioxide 31 H (22-30) mmol/L Anion Gap 3 L (4-12) mmol/L BUN 20 H (7-17) mg/dL Creatinine 0.87 (0.7-1.0) mg/dL Estim Creat Clear Calc 36 ml/min Estimated GFR > 60 (59 - ) Glucose 112 H (65-110) mg/dL Calcium 9.0 (8.4-10.2) mg/dL Magnesium 1.7 Cancelled (1.6-2.3) mg/dL Total Bilirubin 1.1 (0.2-1.3) mg/dL AST 23 (14-36) U/L ALT 17 (6-35) U/L Alkaline Phosphatase 51 (38-126) U/L Troponin I 0.014 0.013 (0.000-0.034) ng/mL NT-Pro-B Natriuret Pep 528 H (19.9-100) pg/mL Total Protein 6.5 (6.3-8.2) g/dL Albumin 3.5 (3.5-5.1) g/dL Lipase 40 (23-300) U/L 01/25/ Range/Units 20:47 WBC (4.5-10.0) K/mm3 RBC (4.2-5.4) M/mm3 Hgb (12.0-15.0) g/dL Hct (37.0-47.0) % MCV (80-100) fl MCH (26-34) pg MCHC (32-36) g/dl RDW (11.5-14.5) % Plt Count (150-375) k/mm3 MPV (7.4-10.4) fl Immature Gran % (Auto) (0-0.5) % Neut % (Auto) (45.5-73.1) % Lymph % (Auto) (18.3-44.2) % [place] % (Auto) (2.6-8.5) % Eos % (Auto) (0-4.4) % Baso % (Auto) (0.2-1.2) % Lymph # (Auto) (0.9-3.2) K/mm3 [place] # (Auto) (0.1-0.6) K/mm3 Eos # (Auto) (0-0.3) K/mm3 Baso # (Auto) (0.0-0.1) K/mm3 Abs Immat Gran (auto) (0.00-0.031) K/mm3 Absolute Neuts (auto) (1.3-6.7) K/mm3 Absolute Nucleated RBC (0.0-0.012) K/mm3 Nucleated RBC % (0.0-0.2) % PT (11.1-14.7) Seconds INR APTT (22.3-36.8) Seconds D-Dimer (<0.48) ug/mL Sodium (137-145) mmol/L Potassium (3.4-5.0) mmol/L Chloride (98-107) mmol/L Carbon Dioxide (22-30) mmol/L Anion Gap (4-12) mmol/L BUN (7-17) mg/dL Creatinine (0.7-1.0) mg/dL Estim Creat Clear Calc ml/min Estimated GFR (59 - ) Glucose (65-110) mg/dL Calcium (8.4-10.2) mg/dL Magnesium (1.6-2.3) mg/dL Total Bilirubin (0.2-1.3) mg/dL AST (14-36) U/L ALT (6-35) U/L Alkaline Phosphatase (38-126) U/L Troponin I 0.018 D (0.000-0.034) ng/mL NT-Pro-B Natriuret Pep (19.9-100) pg/mL Total Protein (6.3-8.2) g/dL Albumin (3.5-5.1) g/dL Lipase (23-300) U/L <Mary Brownlee PA-C - Last Filed: 01/25/25 21:48> Lab Results 01/25/25 01/25/25 01/25/25 Range/Units 14:50 17:46 17:46 WBC 10.7 H (4.5-10.0) K/mm3 RBC 3.94 L (4.2-5.4) M/mm3 Hgb 11.7 L (12.0-15.0) g/dL Hct 35.6 L (37.0-47.0) % MCV 90.4 (80-100) fl MCH 29.7 (26-34) pg MCHC 32.9 (32-36) g/dl RDW 14.0 (11.5-14.5) % Plt Count 244 (150-375) k/mm3 MPV 9.2 (7.4-10.4) fl Immature Gran % (Auto) 0.4 (0-0.5) % Neut % (Auto) 61.3 (45.5-73.1) % Lymph % (Auto) 22.2 (18.3-44.2) % [place] % (Auto) 13.1 H (2.6-8.5) % Eos % (Auto) 2.4 (0-4.4) % Baso % (Auto) 0.6 (0.2-1.2) % Lymph # (Auto) 2.37 (0.9-3.2) K/mm3 [place] # (Auto) 1.4 H (0.1-0.6) K/mm3 Eos # (Auto) 0.3 (0-0.3) K/mm3 Baso # (Auto) 0.1 (0.0-0.1) K/mm3 Abs Immat Gran (auto) 0.04 H (0.00-0.031) K/mm3 Absolute Neuts (auto) 6.6 (1.3-6.7) K/mm3 Absolute Nucleated RBC 0.000 (0.0-0.012) K/mm3 Nucleated RBC % 0.0 (0.0-0.2) % PT 13.7 (11.1-14.7) Seconds INR 1.1 APTT 29.6 (22.3-36.8) Seconds D-Dimer 1.50 H (<0.48) ug/mL Sodium 136 L (137-145) mmol/L Potassium 2.9 L (3.4-5.0) mmol/L Chloride 102 (98-107) mmol/L Carbon Dioxide 31 H (22-30) mmol/L Anion Gap 3 L (4-12) mmol/L BUN 20 H (7-17) mg/dL Creatinine 0.87 (0.7-1.0) mg/dL Estim Creat Clear Calc 36 ml/min Estimated GFR > 60 (59 - ) Glucose 112 H (65-110) mg/dL Calcium 9.0 (8.4-10.2) mg/dL Magnesium 1.7 Cancelled (1.6-2.3) mg/dL Total Bilirubin 1.1 (0.2-1.3) mg/dL AST 23 (14-36) U/L ALT 17 (6-35) U/L Alkaline Phosphatase 51 (38-126) U/L Troponin I 0.014 0.013 (0.000-0.034) ng/mL NT-Pro-B Natriuret Pep 528 H (19.9-100) pg/mL Total Protein 6.5 (6.3-8.2) g/dL Albumin 3.5 (3.5-5.1) g/dL Lipase 40 (23-300) U/L 10/30/25 Range/Units 20:47 WBC (4.5-10.0) K/mm3 RBC (4.2-5.4) M/mm3 Hgb (12.0-15.0) g/dL Hct (37.0-47.0) % MCV (80-100) fl MCH (26-34) pg MCHC (32-36) g/dl RDW (11.5-14.5) % Plt Count (150-375) k/mm3 MPV (7.4-10.4) fl Immature Gran % (Auto) (0-0.5) % Neut % (Auto) (45.5-73.1) % Lymph % (Auto) (18.3-44.2) % [place] % (Auto) (2.6-8.5) % Eos % (Auto) (0-4.4) % Baso % (Auto) (0.2-1.2) % Lymph # (Auto) (0.9-3.2) K/mm3 [place] # (Auto) (0.1-0.6) K/mm3 Eos # (Auto) (0-0.3) K/mm3 Baso # (Auto) (0.0-0.1) K/mm3 Abs Immat Gran (auto) (0.00-0.031) K/mm3 Absolute Neuts (auto) (1.3-6.7) K/mm3 Absolute Nucleated RBC (0.0-0.012) K/mm3 Nucleated RBC % (0.0-0.2) % PT (11.1-14.7) Seconds INR APTT (22.3-36.8) Seconds D-Dimer (<0.48) ug/mL Sodium (137-145) mmol/L Potassium (3.4-5.0) mmol/L Chloride (98-107) mmol/L Carbon Dioxide (22-30) mmol/L Anion Gap (4-12) mmol/L BUN (7-17) mg/dL Creatinine (0.7-1.0) mg/dL Estim Creat Clear Calc ml/min Estimated GFR (59 - ) Glucose (65-110) mg/dL Calcium (8.4-10.2) mg/dL Magnesium (1.6-2.3) mg/dL Total Bilirubin (0.2-1.3) mg/dL AST (14-36) U/L ALT (6-35) U/L Alkaline Phosphatase (38-126) U/L Troponin I 0.018 D (0.000-0.034) ng/mL NT-Pro-B Natriuret Pep (19.9-100) pg/mL Total Protein (6.3-8.2) g/dL Albumin (3.5-5.1) g/dL Lipase (23-300) U/L <Surinder Lobo MD - Last Filed: 01/26/25 03:52> Imaging Data Attestation: I personally reviewed and interpreted this imaging study as follows: <Mary Brownlee PA-C - Last Filed: 01/25/25 21:48> Radiologist's impression: ITS Impressions Chest X-Ray 01/25/25 15:18 IMPRESSION: No acute findings. Chest CTA 01/25/25 19:57 IMPRESSION: 1. No PE or other acute cardiopulmonary findings. <Mary Brownlee PA-C - Last Filed: 01/25/25 21:48> ECG Data EKG #1: Attestation: I personally reviewed and interpreted this ECG as follows: <Mary Brownlee PA-C - Last Filed: 01/25/25 21:48> ECG completion date: 01/25/25 <Mary Brownlee PA-C - Last Filed: 01/25/25 21:48> ECG completion time: 14:30 <Mary Brownlee PA-C - Last Filed: 01/25/25 21:48> EKG Interpretation: normal rate (80), sinus rhythm and non-specific ST changes <KAUR Pathak Last Filed: 01/25/25 21:48> Critical Care Time Critical Care Time Critical Care Time: Yes <Mary Brownlee PA-C - Last Filed: 01/25/25 21:48> Total Critical Care Time: 50 <Mary Brownlee PA-C - Last Filed: 01/25/25 21:48> Discharge Plan Discharge Clinical Impression: Unstable angina pectoris, Diffuse ST segment depression, Hypokalemia <KAUR Pathak Last Filed: 01/25/25 21:48> Patient Disposition: Still a Patient <KAUR Pathak Last Filed: 01/25/25 21:48> Condition: Serious <KAUR Pathak Last Filed: 01/25/25 21:48>
[2025-01-25] MEDS: SODIUM CHLORIDE 0.9% IV 500 ML 999 ML IV CONT (19:27)
--- NOTE | 2025-01-25 19:57 | ECG_ITS ---
Test Date: 2025-01-25 19:57:54 Measurements Intervals [place] Rate: 103 P: 77 SC: 194 QRS: -8 QRSD: 93 T: 142 QT: 314 QTc: 412 Interpretive Statements SINUS TACHYCARDIA LEFT VENTRICULAR HYPERTROPHY WITH ST-T CHANGE CONSIDER ANTERIOR INFARCT, AGE INDETERMINATE ST-T WAVE ABNORMALITY IN ANTEROLAT/INF LEADS- CONSIDER ISCHEMIA BASELINE ARTIFACT- I, III, AVR, AVL, AVF ABNORMAL ECG Compared to ECG 01/25/2025 18:14:34 HEART RATE HAS INCREASED Electronically Signed On 01-26-2025 12:59:58 CDT by Sg Rose D.O.
--- NOTE | 2025-01-25 20:03 | ECG_ITS ---
Test Date: 2025-01-25 20:03:05 Measurements Intervals [place] Rate: 110 P: 69 MD: 184 QRS: -9 QRSD: 103 T: 154 QT: 325 QTc: 441 Interpretive Statements SINUS TACHYCARDIA CONSIDER INFERIOR INFARCT, AGE INDETERMINATE ST-T WAVE ABNORMALITY IN ANTEROLAT/HIGH LAT LEADS- CONSIDER ISCHEMIA BASELINE ARTIFACT- I, III, AVL ABNORMAL ECG Compared to ECG 01/25/2025 19:57:54 NO SIGNIFICANT CHANGE Electronically Signed On 01-26-2025 13:01:37 CDT by Sg Rose D.O.
[2025-01-25 20:13] LABS: NT Pro B Type Natriuretic Pept 528 pg/mL (19.9-100)
[2025-01-25] MEDS: HEPARIN SOD/D5W 100 UNITS/ML 25,000 UNITS/250 ML BAG 7 UNITS IV CONT (20:34)
[2025-01-25] MEDS: NITROGLYCERIN/D5W 200 MCG/ML 50 MG/250 ML BTL IV CONT (20:38)
[2025-01-25] MEDS: ATORVASTATIN 40 MG TABLET 80 MG PO (20:47)
[2025-01-25 21:16] LABS: Troponin I 0.018 ng/mL (0.000-0.034)
[2025-01-25] MEDS: CLOPIDOGREL BISULFATE 75 MG TABLET PO (21:18)
[2025-01-25 22:50] LABS: MRSA (PCR) NOT DETECTED (NOT DETECTE)
[2025-01-25] MEDS: KCL 20 MEQ/SW 100 ML 100 ML 50 MEQ IVPB (23:09)
[2025-01-26] VITALS (25 sets, daily range): BP systolic 72–173; BP diastolic 44–83; PULSE 62–111; RESP 13–22; TEMP 36.3–37; O2SAT 93–98
--- NOTE | 2025-01-26 | ECHO_ITS ---
Patient Info Name: Asha Moore Age: 84 years : 1940 Gender: Female Ht: 60 in Wt: 147 lbs BSA: 1.70 m2 HR: 103 bpm BP: 173 / 71 mmHg Heart Rhythm: Sinus Rhythm Technical Quality: Fair Exam Date: 01/26/2025 9:08 AM Patient Status: I Admit Date: 01/26/2025 Exam Type: CA echo dop color flow w con Complete two-dimensional, color flow and Doppler transthoracic echocardiogram is performed with contrast to opacify the left ventricle and to improve the deliniation of the left ventricle endocardial borders. Staff Referring Physician: Melissa Gamble NP Car Loader: Bhavesh Osman III Attending Provider: Marshall Monae Contrast/Agitated Saline Contrast/Ag. Saline: Definity Amount: 2.00 ml Administered By: Bhavesh Osman III Existing IV Access: Yes IV Access Condition: patent with no signs of infiltration Summary 1. Normal left ventricular size with vigorous systolic contractility. 2. Grade 1 diastolic noncompliance. 3. Mildly sclerotic aortic valve, no significant valvular dysfunction. 4. Definity contrast injected to improve visualization. Left Ventricle Left ventricular chamber dimension is normal. Left ventricular systolic function is normal, estimated at 65-70. There is mild concentric increased left ventricular wall thickness. The left ventricular diastolic function is grade I diastolic dysfunction. Right Ventricle Right ventricular chamber dimension is normal. Left Atria Left atrial chamber dimension is normal. Right Atria Right atrial chamber dimension is normal. Aortic Valve The aortic valve is trileaflet. There is mild aortic valve sclerosis. Pulmonic Valve The pulmonic valve is normal. Mitral Valve The mitral valve has normal leaflets. The mitral valve annulus is mildly calcified. Tricuspid Valve The tricuspid valve leaflets are normal. Pericardium/Pleural The pericardium appears normal. Aorta The aortic root size at the sinus of Valsalva is normal. Left Ventricular Outflow Tract Name Value Normal LVOT 2D LVOT Diameter 2.0 cm LVOT Doppler LVOT Peak Velocity 173 cm/s LVOT Peak Gradient 12 mmHg LVOT Mean Gradient 7 mmHg LVOT VTI 29 cm LVOT VTI/AV VTI Ratio 1.0 LVOT Stroke Volume 91 ml LVOT CO 9.4 l/min LVOT CI 5.5 l/min/m2 Pulmonic Valve Name Value Normal PV Doppler PV Peak Velocity 181 cm/s PV Peak Gradient 13 mmHg PV Mean Gradient 7 mmHg Mitral Valve Name Value Normal MV Doppler MV Peak Gradient 6 mmHg MV Mean Gradient 3 mmHg MV Area (Cont Eq VTI) 4.2 cm2 MV Diastolic Function MV E Peak Velocity 64 cm/s MV A Peak Velocity 104 cm/s MV E/A 0.6 MV Decel Time (PW) 174 ms MV Annular TDI MV E/e' (Septal) 21.5 MV E/e' (Lateral) 21.9 MV E/e' (Average) 21.7 Tricuspid Valve Name Value Normal TV Annular TDI TV Lateral Shabana s' Velocity 15.9 cm/s >=9.5 Aortic Valve Name Value Normal AV Doppler AV Peak Velocity 200 cm/s AV Peak Gradient 16 mmHg AV Mean Gradient 7 mmHg AV VTI 29 cm AV Area (Cont Eq VTI) 3.2 cm2 >=3.0 AV Area (Cont Eq Guy) 2.7 cm2 AV DI (Guy) 0.87 AV Regurgitation 2D LVOT Area 3.1 cm2 Ventricles Name Value Normal LV Dimensions 2D/MM IVS Diastolic Thickness (2D) 0.4 cm 0.6-1.0 LVID Diastole (2D) 4.6 cm 3.8-5.2 LVIW Diastolic Thickness (2D) 0.6 cm 0.6-0.9 LVID Systole (2D) 2.9 cm 2.2-3.5 LVOT Diameter 2.0 cm LV Mass (2D Cubed) 64.09 g 67.00-162.00 LV Mass Index (2D Cubed) 38 g/m2 43-95 Relative Wall Thickness (2D) 0.26 <=0.42 LV Fractional Shortening/Ejection Fraction 2D/MM LV Fractional Shortening (2D) 37 % 27-45 LV EF (2D Teichholz) 66 % LV Diastolic Volume (4C MOD) 52 ml LV EF (4C MOD) 68 % LV Diastolic Volume (2C MOD) 38 ml LV EF (2C MOD) 66 % LV Diastolic Volume (BP MOD) 46 ml 46-106 LV Diastolic Volume Index (BP MOD) 27 ml/m2 29-61 LV Systolic Volume (BP MOD) 16 ml 14-42 LV Systolic Volume Index (BP MOD) 9 ml/m2 8-24 LV EF (BP MOD) 65 % 54-74 LV Diastolic Length (4C) 6.5 cm LV Systolic Length (4C) 4.6 cm LV Stroke Volume (4C MOD) 36 ml Atria Name Value Normal LA Dimensions LA Volume (4C A-L) 27 ml LA Volume (BP A-L) 33 ml RA Dimensions RA Systolic Major [place] Length (4C) 3.8 cm 2.2-2.8 RA Area (4C) 9.9 cm2 <=18.0 Report Signatures
--- NOTE | 2025-01-26 00:16 | PC.NURSE ---
This patient, Asha Moore, was admitted to Intensive Care Unit-5 at 2210. Patient/family oriented to hospital policies and general routines including ID bracelet, bed and alarms, visiting hours, pain management, procedures, bathroom and other care routines, personal items, smoking policy, room service/diet, and visiting hours. Information on how to activate the Rapid Response Team has been discussed. Patient/Family are encouraged to report perceived risks to care and to ask questions if they do not understand what they are told or what they should do.
[2025-01-26 00:23] LABS: Troponin I 0.175 ng/mL (0.000-0.034)
--- NOTE | 2025-01-26 01:09 | PM.IMHP ---
H&P: HPI History of Present Illness Date/Time: 01/26/25 01:09 Chief Complaint: Chest pain Narrative: This is an 84-year-old female patient who came to the emergency room with complaints of chest pain after being at her dentist's office. She stated this past Wednesday she had her teeth pulled and she was at the dentist's office prior to coming to the emergency room to be fitted for her upper dentures. She developed midsternal pressure and she used to nitro sprays. This resolved her discomfort. EMS was activated and she was brought to the emergency room. The patient has a past history of coronary artery disease with stent and open-heart surgery in the 80s. The patient has been off of her Plavix for 5 days for her dental procedures. EKG was read as sinus rhythm left ventricular hypertrophy and ST T-wave changes. Inferior infarction, age indeterminate. ST T-wave abnormality in lateral leads consider ischemia. Cardiology was called and is reported that they reviewed her EKG. Chest x-ray was read as no acute findings. Chest CTA was read as no PE or other acute cardiopulmonary disease. Her white count was slightly elevated at 10.7. H&H 11.7 and 35.6. Her D-dimer was elevated to 1.5. Sodium 136 and potassium 2.9. Of K rider was started in the emergency room. She was started on a nitro drip as well is a heparin drip. Initial troponins were negative. BNP was 528. She was also given 324 mg of aspirin in the emergency room. She was also given her home Plavix and atorvastatin. She was given magnesium in the emergency room and IV fluids. The patient is being admitted to observation status on the date of service of 01/26/2025. Review of Systems Constitutional: Constitutional: Reports as per HPI and Reports no additional constitutional complaints Eyes: Eyes: Reports as per HPI and Reports no additional eye complaints ENT: Reports system reviewed and no additional complaints, except as documented and Reports Normal hearing present Cardiovascular: Cardiovascular: Reports no additional cardiovascular complaints Respiratory: Respiratory: Reports as per HPI and Reports no additional respiratory complaints Gastrointestinal: Gastrointestinal: Reports as per HPI and Reports no additional gastrointestinal complaints Genitourinary: Genitourinary: Reports no additional female genitourinary complaints Musculoskeletal: Musculoskeletal: Reports no additional musculoskeletal complaints Integumentary/Breasts: Skin/Breast: Reports system reviewed and no additional complaints, except as docu Neurologic: Reports system reviewed and no additional complaints, except as documented and Reports Normal hearing present Psychiatric: Psychiatric: Reports no additional psychiatric complaints and Reports as per HPI Hematologic/Lymphatic: Hematologic/Lymphatic: Reports no additional hematologic/lymphatic complaints Allergic/Immunologic: Allergic/Immunologic: Reports no additional allergic/immunologic complaints [facility] Past Medical History Medical History Essential (primary) hypertension Atrophy of left kidney Cervicalgia Hypothyroid Aortic atherosclerosis 03/2013 COPD (chronic obstructive pulmonary disease) Moderate persistent asthma Pure hypercholesterolemia, unspecified Atherosclerotic heart disease of [place] coronary artery without angina pectoris Surgical History Surgical History H/O cardiac catheterization H/O tubal ligation H/O cataract extraction History of percutaneous transluminal coronary angioplasty x 4 History of coronary artery bypass graft 3 vessel History of cholecystectomy Family History Family History Mother Acute myocardial infarction Heart disease Hypertension Other Asthma Social History Social History Social History: Caffeine-coffee. She lives alone and is . She has 1 daughter. Code status: Full code Smoking status: Never smoker Second hand tobacco smoke exposure: No Alcohol intake: never Substance use: never Substance use type: does not use Lack of Transportation: No Lack of Food: Never True Current Housing: I Have Housing Concerned About Future Housing: No Difficulty Paying Gas/Electric Bills: No Difficulty Paying for Meds: No Currently Unemployed: No Education: High School Diploma/GED Difficulty w/ Childcare or Family Care: No Living arrangements: with family Occupation/Education: retired Gender identity (if verbalized by the patient): Female Spiritual care concerns: No Agree to blood products: Yes Meds Home Medications and Allergies Home Medications ?Medication ?Instructions ?Recorded ?Confirmed ?Type atorvastatin 80 mg tablet 80 mg PO DAILY 11/10/21 01/25/25 History clopidogrel 75 mg tablet 75 mg PO DAILY 11/10/21 01/25/25 History hydrochlorothiazide 100 mg tablet 25 mg PO DAILY 11/10/21 01/25/25 History isosorbide mononitrate 120 mg 120 mg PO DAILY 11/10/21 01/25/25 History tablet,extended release 24 hr metoprolol succinate 100 mg 50 mg PO BID 11/10/21 01/25/25 History tablet,extended release 24 hr umeclidinium 62.5 mcg-vilanterol 1 inh inhalation DAILY 11/10/21 01/25/25 History 25 mcg/actuation powdr for inhalation (Anoro Ellipta) levothyroxine 100 mcg tablet 100 mcg PO DAILY #90 tabs 04/12/24 01/25/25 Rx albuterol sulfate 90 mcg/actuation 1 puff inhalation Q4H PRN 06/21/24 01/25/25 Rx aerosol inhaler (Ventolin HFA) shortness of breath or wheezing #8.5 grams epinastine 0.05 % eye drops 1 drp EACH EYE Q12H 06/21/24 01/25/25 History montelukast 10 mg tablet 10 mg PO DAILY 06/21/24 01/25/25 History nitroglycerin 0.3 mg sublingual 0.3 mg sublingual Q5M PRN chest 06/21/24 01/25/25 History tablet pain prednisone 5 mg tablet 5 mg PO DAILY 07/26/24 01/25/25 History amlodipine 10 mg tablet 5 mg PO DAILY 10/16/24 01/25/25 History aspirin 81 mg tablet 81 mg PO DAILY 10/16/24 01/25/25 History mirtazapine 30 mg tablet 15 mg PO QHS 01/25/25 01/25/25 History Allergies Allergy/AdvReac Type Severity Reaction Status Date / Time meperidine Allergy Unknown N/V Verified 01/25/25 22:54 morphine Allergy Unknown N/V Verified 01/25/25 22:54 Sulfa (Sulfonamide Allergy Unknown ITCHING Verified 01/25/25 22:54 Antibiotics) tramadol AdvReac Unknown Nausea Verified 01/25/25 22:54 clarithromycin (From Biaxin) AdvReac Nausea Verified 01/25/25 22:54 hydrocodone (From Vicodin) AdvReac Nausea Verified 01/25/25 22:54 Vital Signs Vital Signs - 24 hr 01/25/25 14:25 01/25/25 14:31 01/25/25 14:31 Temperature 98.3 F Pulse Rate 81 79 Respiratory Rate 16 15 Blood Pressure 140/92 H 140/92 H Pulse Oximetry 97 97 96 Oxygen Delivery Room Air Autopap 01/25/25 14:32 01/25/25 14:32 01/25/25 17:16 Temperature Pulse Rate 80 77 98 Respiratory Rate 14 17 Blood Pressure 140/92 H 142/72 H Pulse Oximetry 97 95 Oxygen Delivery 01/25/25 17:31 01/25/25 18:16 01/25/25 18:31 Temperature Pulse Rate 76 79 75 Respiratory Rate 18 21 H 20 Blood Pressure 151/60 H 141/65 H 133/61 Pulse Oximetry 95 96 97 Oxygen Delivery 01/25/25 19:16 01/25/25 19:31 01/25/25 20:31 Temperature Pulse Rate 74 70 Respiratory Rate 20 14 Blood Pressure 141/78 H 148/72 H 149/62 H Pulse Oximetry 100 97 98 Oxygen Delivery 01/25/25 20:38 01/25/25 20:51 01/25/25 21:01 Temperature Pulse Rate 97 91 87 Respiratory Rate 17 18 Blood Pressure 149/62 H 156/70 H 152/62 H Pulse Oximetry 99 95 Oxygen Delivery 01/25/25 21:16 01/25/25 22:00 01/25/25 22:30 Temperature Pulse Rate 92 92 97 Respiratory Rate 17 17 Blood Pressure 136/63 142/62 H 132/81 Pulse Oximetry 96 100 Oxygen Delivery 01/25/25 22:43 01/25/25 23:00 01/25/25 23:11 Temperature 97.8 F Pulse Rate 97 92 97 Respiratory Rate 16 17 Blood Pressure 132/81 146/72 H Pulse Oximetry 96 100 Oxygen Delivery Room Air 01/25/25 23:11 01/26/25 00:00 01/26/25 00:00 Temperature 98 F Pulse Rate 97 92 100 Respiratory Rate 16 Blood Pressure 154/78 H 154/78 H Pulse Oximetry 96 Oxygen Delivery Exam Const: General: cooperative, healthy appearing, comfortable, no acute distress, well developed, awake, Physically active, average body habitus and well nourished Nutritional Appearance: average body habitus and well nourished Orientation/consciousness: oriented to person, oriented to place, oriented to time and patient oriented x3 Limitations: no limitations HENMT: Head: normal to inspection, No palpable skull fracture present and normocephalic Eyes: General: appearance normal, both eyes and all related structures Alignment and Position: alignment normal Neck: Neck: normal visual inspection, full ROM and no lymphadenopathy Chest: Chest palpation & inspection: normal inspection of the chest Resp: Effort & Inspection: normal respiratory effort Auscultation: clear to auscultation bilaterally Percussion: percussion normal Cardio: Palpation: normal PMI Rate: regular rate Rhythm: regular rhythm Heart sounds: S1 normal heart sound present and S2 normal heart sound present Peripheral pulses: Peripheral pulses 2+ throughout GI: Inspection: normal to inspection Percussion: Yes normal to percussion Back/Spine/Pelvis: Back: no CVA tenderness Cervical Spine: cervical ROM normal Thoracic/Lumbar Spine: thoracic and lumbar spine normal to inspection Pelvis: no pain with anterior-posterior compression Skin: General skin exam: normal color Lesions: no lesions Rashes: no rashes Trauma: no lacerations or abrasions Wounds: no wounds Hair: normal Nails: normal Neuro: General: oriented to person, oriented to place, oriented to time and patient oriented x3 Cranial nerves: Yes Normal hearing present Cognition (Neuro): normal cognition Speech: normal speech Extrem: General: normal to inspection Right upper extremity: normal to inspection and shoulder/upper arm Left upper extremity: normal to inspection and shoulder/upper arm Right lower extremity: normal to inspection Left lower extremity: normal to inspection Psych: Appearance: grossly normal Mental Status: mental status grossly normal Speech and movement: Normal speech and movement present Affect: normal affect Attitude: cooperative Thought process: Normal thought process present Thought content: Yes Normal thought content present Insight: Good insight present (Psych) Judgement: Good judgement present (Psych) H&P: Results Labs Labs: Short CBC 01/25/25 Range/Units 14:50 WBC 10.7 H (4.5-10.0) K/mm3 Hgb 11.7 L (12.0-15.0) g/dL Hct 35.6 L (37.0-47.0) % Plt Count 244 (150-375) k/mm3 BMP 01/25/25 14:50 Sodium 136 L Potassium 2.9 L Chloride 102 Carbon Dioxide 31 H BUN 20 H Creatinine 0.87 Glucose 112 H Calcium 9.0 Cardiac Enzymes 01/25/25 01/25/25 01/25/25 Range/Units 14:50 17:46 20:47 Troponin I 0.014 0.013 0.018 D (0.000-0.034) ng/mL 01/25/25 Range/Units 23:53 Troponin I 0.175 H* D (0.000-0.034) ng/mL Liver Function 01/25/25 Range/Units 14:50 Total Bilirubin 1.1 (0.2-1.3) mg/dL AST 23 (14-36) U/L ALT 17 (6-35) U/L Alkaline Phosphatase 51 (38-126) U/L Albumin 3.5 (3.5-5.1) g/dL ECG Interpretation: est Date: 2025-01-25 18:14:34 Measurements Intervals [place] Rate: 72 P: 40 MN: 175 QRS: -12 QRSD: 95 T: 119 QT: 397 QTc: 436 Interpretive Statements SINUS RHYTHM LEFT VENTRICULAR HYPERTROPHY AND ST-T CHANGE INFERIOR INFARCT, AGE INDETERMINATE ST-T WAVE ABNORMALITY IN LATERAL LEADS- CONSIDER ISCHEMIA ABNORMAL ECG Compared to ECG 01/25/2025 14:30:48 NO SIGNIFICANT CHANGE Electronically Signed On 01-25-2025 19:08:30 CDT by Sg Rose D.O Imaging CT scan - chest: Radiologist's impression: ITS Impressions Chest X-Ray 01/25/25 15:18 IMPRESSION: No acute findings. Chest CTA 01/25/25 19:57 IMPRESSION: 1. No PE or other acute cardiopulmonary findings. Assessment and Plan Assessment and plan (1) Unstable angina pectoris: Code(s): I20.0 - Unstable angina Status: Acute Assessment and Plan: -environmental engineer has been consulted for admission into ICU. -no further complaints of chest pressure discomfort. -continue with nitro drip -continue with heparin drip. -the ER provider stated that she had reached out to the Cardiology interventionalist who suggested that the patient continue with Plavix and aspirin as well as the heparin and nitro. -the patient has a strong history of cardiac disease in the past where she has had stents and CABG. -the patient was made NPO for possible procedure. -the patient had diffuse across ST segments under EKG. -may resume metoprolol if blood pressure allows. Currently her blood pressure is 154/78. -continue with atorvastatin. -although the D-dimer was elevated her CTA pulmonary was negative.dopplers ordered (2) Essential (primary) hypertension: Code(s): I10 - Essential (primary) hypertension Status: Acute Assessment and Plan: -patient's blood pressure is 154/78. She is currently on a nitro drip. -metoprolol was restarted from her home dose. -amlodipine was placed on hold at this time as well as isosorbide since the patient is on a nitro drip. -hydrochlorothiazide was resumed as well. (3) Hypothyroid: Code(s): E03.9 - Hypothyroidism, unspecified Status: Chronic Assessment and Plan: -continue with home dose of Synthroid (4) Hypokalemia: Code(s): E87.6 - Hypokalemia Status: Acute Assessment and Plan: -repeat in daily BMPs -supplement potassium and magnesium as necessary. -her potassium was 2.9 (5) Magnesium deficiency: Code(s): E61.2 - Magnesium deficiency Status: Acute Assessment and Plan: -magnesium was 1.7 and was replaced. -recheck magnesium and supplement as necessary. (6) Moderate persistent asthma: Code(s): J45.40 - Moderate persistent asthma, uncomplicated Status: Chronic Assessment and Plan: -continue with home inhalers. (7) Elevated d-dimer: Code(s): R79.89 - Other specified abnormal findings of blood chemistry Status: Acute Assessment and Plan: -CTA was negative for PE. -venous Dopplers have been ordered. Quality VTE Prophylaxis VTE prophylaxis: pharmacologic ordered
[2025-01-26 03:41] LABS: Hematocrit 38.6 % (37.0-47.0); Hemoglobin 12.5 g/dL (12.0-15.0); Immature Granulocyte Percent A 0.4 % (0-0.5); Lymphocytes Absolute Auto 2.42 K/mm3 (0.9-3.2); Mean Corpuscular HGB Conc 32.4 g/dl (32-36); Mean Corpuscular Hemoglobin 29.3 pg (26-34); Mean Corpuscular Volume 90.6 fl (80-100); Nucleated Red Blood Cells Absolute Auto 0.000 K/mm3 (0.0-0.012); Nucleated Red Blood Cells Perc 0.0 % (0.0-0.2); Platelet Count Result 259 k/mm3 (150-375); Red Blood Count 4.26 M/mm3 (4.2-5.4); White Blood Count 10.6 K/mm3 (4.5-10.0)
[2025-01-26 03:46] LABS: Troponin I 0.197 ng/mL (0.000-0.034)
[2025-01-26 03:54] LABS: Partial Thromboplastin Time 30.2 Seconds (22.3-36.8)
[2025-01-26] MEDS: LEVOTHYROXINE SODIUM 100 MCG TABLET PO (06:35)
[2025-01-26 07:53] LABS: Magnesium 2.2 mg/dL (1.6-2.3)
[2025-01-26] MEDS: UMECLIDINIUM/VILANTEROL 62.5-25 MCG ELLIPTA 1 PUFF INHALATION (08:07)
--- NOTE | 2025-01-26 08:50 | PM.CNCAR ---
Assessment and Plan Assessment and plan (1) Unstable angina pectoris: Code(s): I20.0 - Unstable angina Status: Acute Plan This is an 84-year-old lady who has known diffuse calcified coronary artery disease with coronary bypass grafting way back in 1979. She is known to have a patent but badly diseased vein graft to the LAD diagonal. He is also known to have diffusely calcified coronary arteries with previous stenting of the left main into the proximal circumflex as well as to the mid RCA. She had an episode of ischemic chest pain in the dentist office yesterday which resolved with 2 nitroglycerin sprays. She is now asymptomatic and feels well. There has been a very mild troponin rise after this event. At this point I would recommend treating this medically given her known severe diffuse heavily calcified coronary arteries. The option of catheterization with PCI has been discussed with the patient by my partner in the past as well. She would be not an appropriate candidate for catheterization here given the complexity of her disease the fact that she has a heavily calcified highly stenotic vein graft 6 which if PCI was to be attempted would unlikely be successfully accomplished here at this hospital. Since she has had very little ischemic chest pain recently since I would recommend continuing heparin for another 24 hours and then observing her in the hospital for at least another day after that. Dual anti-platelet therapy statin therapy and isosorbide should also be continued Avery Quiroz MD [facility] History of Present Illness History of Present Illness Consult date/time: 01/26/25 08:50 Reason For Visit: Unstable angina Narrative: Was this is an 84-year-old lady who I am seeing at the request of the hospitalist because of what appears to be acute coronary syndrome. She is unknown to me prior to this event but is known to my partners and has a long history of coronary artery disease. She was at her dentist yesterday afternoon when she was having a dental procedure and had a number of extractions done. She started to have some central pressure-like chest pain that who is typical of her angina while she was having the procedure done. She mentioned this to her family and to the dentist. She took a nitroglycerin spray and did not experience much relief she took a 2nd nitroglycerin spray and after that the symptoms were resolved. She was brought to the emergency room here for evaluation. Her electrocardiogram shows sinus rhythm with a precordial in inferior ST segment depression and her troponin levels srikanth slightly to 0.1. She made in this setting I am seeing her in consultation. She is comfortable this morning and does not have any complaints. She was on some IV nitroglycerin overnight which has been weaned off. She is still heparinized. She has a history of coronary artery disease dating back to 1979 when she had coronary bypass grafting done I believe with vein grafts to the LAD/diagonal and RCA. She was followed by winch operator at [facility] until prison and several years ago transferred her care to our practice. Over the years she apparently has been found to have heavily calcified coronary arteries and is known to have occlusion of her RCA graft, heavily calcified disease of the vein graft to the LAD/diagonal as well as she had diffusely calcified coronary arteries. According to the records she has had PCI done to the mid RCA, to the left main into the proximal circumflex. Medical therapy of this has been recommended. The notes in the chart to indicate that the vein graft to her LAD/diagonal is significantly calcified and diseased in the proximal/ostial aspect but the [place] LAD is diminutive and for that reason medical therapy has been recommended. She is on appropriate medical therapy including aspirin, clopidogrel, atorvastatin, isosorbide, metoprolol. At this time she is comfortable and offers no other complaints. Review of Systems Constitutional: Constitutional: Reports no additional constitutional complaints Eyes: Eyes: Reports no additional eye complaints ENT: Reports system reviewed and no additional complaints, except as documented Cardiovascular: Cardiovascular: Reports as per HPI and Reports chest pain Respiratory: Respiratory: Reports no additional respiratory complaints Gastrointestinal: Gastrointestinal: Reports no additional gastrointestinal complaints Musculoskeletal: Musculoskeletal: Reports no additional musculoskeletal complaints Integumentary/Breasts: Skin/Breast: Reports system reviewed and no additional complaints, except as docu Neurologic: Reports system reviewed and no additional complaints, except as documented Endocrine: Endocrine: Reports no additional endocrine complaints Hematologic/Lymphatic: Hematologic/Lymphatic: Reports no additional hematologic/lymphatic complaints Allergic/Immunologic: Allergic/Immunologic: Reports no additional allergic/immunologic complaints [facility] Past Medical History Medical History (Updated 01/26/25 @ 03:42 by Melissa Gamble APRN) Essential (primary) hypertension Atrophy of left kidney Cervicalgia Hypothyroid Aortic atherosclerosis 03/2013 COPD (chronic obstructive pulmonary disease) Moderate persistent asthma Pure hypercholesterolemia, unspecified Atherosclerotic heart disease of [place] coronary artery without angina pectoris Surgical History Surgical History (Updated 01/26/25 @ 03:27 by Melissa Gamble APRN) H/O cardiac catheterization H/O tubal ligation H/O cataract extraction History of percutaneous transluminal coronary angioplasty x 4 History of coronary artery bypass graft 3 vessel History of cholecystectomy Family History Family History Mother Acute myocardial infarction Heart disease Hypertension Other Asthma Social History Social History (Updated 01/26/25 @ 03:29 by Melissa Gamble APRN) Social History: Caffeine-coffee. She lives alone and is . She has 1 daughter. Code status: Full code Smoking status: Never smoker Second hand tobacco smoke exposure: No Alcohol intake: never Substance use: never Substance use type: does not use Lack of Transportation: No Lack of Food: Never True Current Housing: I Have Housing Concerned About Future Housing: No Difficulty Paying Gas/Electric Bills: No Difficulty Paying for Meds: No Currently Unemployed: No Education: High School Diploma/GED Difficulty w/ Childcare or Family Care: No Living arrangements: with family Occupation/Education: retired Gender identity (if verbalized by the patient): Female Spiritual care concerns: No Agree to blood products: Yes Meds Home Medications and Allergies Home Medications ?Medication ?Instructions ?Recorded ?Confirmed ?Type atorvastatin 80 mg tablet 80 mg PO DAILY 11/10/21 01/25/25 History clopidogrel 75 mg tablet 75 mg PO DAILY 11/10/21 01/25/25 History hydrochlorothiazide 100 mg tablet 25 mg PO DAILY 11/10/21 01/25/25 History isosorbide mononitrate 120 mg 120 mg PO DAILY 11/10/21 01/25/25 History tablet,extended release 24 hr metoprolol succinate 100 mg 50 mg PO BID 11/10/21 01/25/25 History tablet,extended release 24 hr umeclidinium 62.5 mcg-vilanterol 1 inh inhalation DAILY 11/10/21 01/25/25 History 25 mcg/actuation powdr for inhalation (Anoro Ellipta) levothyroxine 100 mcg tablet 100 mcg PO DAILY #90 tabs 04/12/24 01/25/25 Rx albuterol sulfate 90 mcg/actuation 1 puff inhalation Q4H PRN 06/21/24 01/25/25 Rx aerosol inhaler (Ventolin HFA) shortness of breath or wheezing #8.5 grams epinastine 0.05 % eye drops 1 drp EACH EYE Q12H 06/21/24 01/25/25 History montelukast 10 mg tablet 10 mg PO DAILY 06/21/24 01/25/25 History nitroglycerin 0.3 mg sublingual 0.3 mg sublingual Q5M PRN chest 06/21/24 01/25/25 History tablet pain prednisone 5 mg tablet 5 mg PO DAILY 07/26/24 01/25/25 History amlodipine 10 mg tablet 5 mg PO DAILY 10/16/24 01/25/25 History aspirin 81 mg tablet 81 mg PO DAILY 10/16/24 01/25/25 History mirtazapine 30 mg tablet 15 mg PO QHS 01/25/25 01/25/25 History Allergies Allergy/AdvReac Type Severity Reaction Status Date / Time meperidine Allergy Unknown N/V Verified 01/25/25 22:54 morphine Allergy Unknown N/V Verified 01/25/25 22:54 Sulfa (Sulfonamide Allergy Unknown ITCHING Verified 01/25/25 22:54 Antibiotics) tramadol AdvReac Unknown Nausea Verified 01/25/25 22:54 clarithromycin (From Biaxin) AdvReac Nausea Verified 01/25/25 22:54 hydrocodone (From Vicodin) AdvReac Nausea Verified 01/25/25 22:54 Vital Signs Vital Signs - 24 hr 01/25/25 14:25 01/25/25 14:31 01/25/25 14:31 Temperature 36.8 C Pulse Rate 81 79 Respiratory Rate 16 15 Blood Pressure 140/92 H 140/92 H Pulse Oximetry 97 97 96 Oxygen Delivery Room Air Autopap 01/25/25 14:32 01/25/25 14:32 01/25/25 17:16 Temperature Pulse Rate 80 77 98 Respiratory Rate 14 17 Blood Pressure 140/92 H 142/72 H Pulse Oximetry 97 95 Oxygen Delivery 01/25/25 17:31 01/25/25 18:16 01/25/25 18:31 Temperature Pulse Rate 76 79 75 Respiratory Rate 18 21 H 20 Blood Pressure 151/60 H 141/65 H 133/61 Pulse Oximetry 95 96 97 Oxygen Delivery 01/25/25 19:16 01/25/25 19:31 01/25/25 20:31 Temperature Pulse Rate 74 70 Respiratory Rate 20 14 Blood Pressure 141/78 H 148/72 H 149/62 H Pulse Oximetry 100 97 98 Oxygen Delivery 01/25/25 20:38 01/25/25 20:51 01/25/25 21:01 Temperature Pulse Rate 97 91 87 Respiratory Rate 17 18 Blood Pressure 149/62 H 156/70 H 152/62 H Pulse Oximetry 99 95 Oxygen Delivery 01/25/25 21:16 01/25/25 22:00 01/25/25 22:30 Temperature Pulse Rate 92 92 97 Respiratory Rate 17 17 Blood Pressure 136/63 142/62 H 132/81 Pulse Oximetry 96 100 Oxygen Delivery 01/25/25 22:43 01/25/25 23:00 01/25/25 23:11 Temperature 36.6 C Pulse Rate 97 92 97 Respiratory Rate 16 17 Blood Pressure 132/81 146/72 H Pulse Oximetry 96 100 Oxygen Delivery Room Air 01/25/25 23:11 01/26/25 00:00 01/26/25 00:00 Temperature 36.6 C Pulse Rate 97 92 100 Respiratory Rate 16 Blood Pressure 154/78 H 154/78 H Pulse Oximetry 96 Oxygen Delivery 01/26/25 00:00 01/26/25 01:00 01/26/25 01:00 Temperature Pulse Rate 107 H 81 96 Respiratory Rate 22 H 18 20 Blood Pressure 154/78 H 79/59 L 129/73 Pulse Oximetry 96 95 96 Oxygen Delivery 01/26/25 02:00 01/26/25 02:00 01/26/25 02:00 Temperature Pulse Rate 81 81 95 Respiratory Rate 19 17 Blood Pressure 104/62 141/75 H Pulse Oximetry 93 94 Oxygen Delivery 01/26/25 02:00 01/26/25 03:00 01/26/25 03:00 Temperature Pulse Rate 95 73 99 Respiratory Rate 18 17 Blood Pressure 141/75 H 72/44 L 145/74 H Pulse Oximetry 93 95 Oxygen Delivery 01/26/25 03:59 01/26/25 03:59 01/26/25 04:00 Temperature Pulse Rate 73 73 93 Respiratory Rate 18 Blood Pressure 161/83 H Pulse Oximetry 93 Oxygen Delivery Room Air 01/26/25 05:00 01/26/25 06:00 01/26/25 06:00 Temperature 36.8 C Pulse Rate 90 102 H 102 H Respiratory Rate 20 20 Blood Pressure 169/83 H 105/72 Pulse Oximetry 95 93 Oxygen Delivery 01/26/25 07:00 01/26/25 08:00 01/26/25 08:00 Temperature 36.3 C L Pulse Rate 103 H 103 H 105 H Respiratory Rate 20 13 Blood Pressure 173/71 H 137/67 137/67 Pulse Oximetry 95 97 Oxygen Delivery 01/26/25 08:00 01/26/25 08:15 Temperature Pulse Rate 107 H Respiratory Rate 20 Blood Pressure Pulse Oximetry 96 96 Oxygen Delivery Room Air Room Air Exam Const: General: comfortable and no acute distress Other: Very pleasant elderly lady in no distress HENMT: Mouth: Yes moist mucous membranes Eyes: Sclera: sclerae normal Neck: Neck: supple and no JVD Resp: Effort & Inspection: normal respiratory effort Auscultation: clear to auscultation bilaterally Cardio: Rate: regular rate Rhythm: regular rhythm Other: Soft systolic murmur does not radiate from the left sternal border no diastolic murmur no gallop GI: GI Palp: Yes Soft to palpation Auscultation: normal bowel sounds Skin: General skin exam: normal color Neuro: Other: Alert and oriented times Extrem: Other: No edema, very good distal pulses Results Labs and Meds 01/26/25 02:54 01/25/25 14:50 Lab results: Cardiac Enzymes 01/25/25 01/25/25 01/25/25 Range/Units 14:50 17:46 20:47 AST 23 (14-36) U/L Troponin I 0.014 0.013 0.018 D (0.000-0.034) ng/mL 01/25/25 01/26/25 Range/Units 23:53 02:54 AST (14-36) U/L Troponin I 0.175 H* D 0.197 H* (0.000-0.034) ng/mL Coagulation 01/25/25 01/26/25 Range/Units 14:50 02:54 PT 13.7 (11.1-14.7) Seconds APTT 29.6 30.2 (22.3-36.8) Seconds CBC 01/25/25 01/26/25 Range/Units 14:50 02:54 WBC 10.7 H 10.6 H (4.5-10.0) K/mm3 RBC 3.94 L 4.26 (4.2-5.4) M/mm3 Hgb 11.7 L 12.5 (12.0-15.0) g/dL Hct 35.6 L 38.6 (37.0-47.0) % Plt Count 244 259 (150-375) k/mm3 Lymph # (Auto) 2.37 2.42 (0.9-3.2) K/mm3 [place] # (Auto) 1.4 H 1.2 H (0.1-0.6) K/mm3 Eos # (Auto) 0.3 0.4 H (0-0.3) K/mm3 Baso # (Auto) 0.1 0.1 (0.0-0.1) K/mm3 Comprehensive Metabolic Panel 01/25/25 Range/Units 14:50 Sodium 136 L (137-145) mmol/L Potassium 2.9 L (3.4-5.0) mmol/L Chloride 102 (98-107) mmol/L Carbon Dioxide 31 H (22-30) mmol/L BUN 20 H (7-17) mg/dL Creatinine 0.87 (0.7-1.0) mg/dL Glucose 112 H (65-110) mg/dL Calcium 9.0 (8.4-10.2) mg/dL AST 23 (14-36) U/L ALT 17 (6-35) U/L Alkaline Phosphatase 51 (38-126) U/L Total Protein 6.5 (6.3-8.2) g/dL Albumin 3.5 (3.5-5.1) g/dL Intake and Output 01/25/25 01/26/25 01/26/25 23:59 07:59 15:59 Intake Total 552.1 67 34.4 Output Total 800 Balance 552.1 -733 34.4 Intake: IV 552.1 67 34.4 Heparin Sod/D5w 100 Units/ml 25 58 28.4 ,000 units In 250 ml @ 900 UNITS/HR 9 mls/hr IV CONT .Q24H SOFI Rx#:[id number] Nitroglycerin/D5w 200 Mcg/ml 50 2.1 9 6 mg In 250 ml @ 5 MCG/MIN 1.5 mls/hr IV CONT .Q24H STA Rx#: [id number] Sodium Chloride 0.9% IV 500 ml 500 @ 999 mls/hr IV CONT .Q31M STA Rx#:[id number] Magnesium Sulf 2 gm/Water 50Ml 50 2 gm In 50 ml @ 50 mls/hr IVPB ONCE ONE Rx#:[id number] Output: Urine 800 Patient Weight 01/26/25 23:59 Weight 67 kg
[2025-01-26] MEDS: CLOPIDOGREL BISULFATE 75 MG TABLET PO (08:52)
[2025-01-26] MEDS: MONTELUKAST SODIUM 10 MG TABLET PO (08:52)
[2025-01-26] MEDS: ATORVASTATIN 40 MG TABLET 80 MG PO (08:52)
[2025-01-26] MEDS: ASPIRIN 81 MG ENTERIC TABLET PO (08:52)
[2025-01-26] MEDS: METOPROLOL SUCCINATE EXT REL 100 MG TABCR PO (08:53)
--- NOTE | 2025-01-26 09:34 | WPDCNINT ---
Assessment and Plan Assessment and plan (1) NSTEMI (non-ST elevated myocardial infarction): Code(s): I21.4 - Non-ST elevation (NSTEMI) myocardial infarction Status: Acute Assessment and Plan: Patient presented with chest pain with normal EKG and mildly elevated troponin. Chest pain has now resolved. Patient is off nitroglycerin infusion and chest pain for Patient has a history of coronary disease status post CABG and multiple stents in the past. Patient has complicated anatomy Patient was evaluated by Cardiology and at this point recommended medical management Patient was started on Imdur Continue aspirin Plavix, statin, heparin infusion and beta-yrn Telemetry monitoring Echo (2) Essential (primary) hypertension: Code(s): I10 - Essential (primary) hypertension Status: Acute Assessment and Plan: Continue metoprolol and Imdur (3) Hypothyroid: Code(s): E03.9 - Hypothyroidism, unspecified Status: Chronic Assessment and Plan: Continue levothyroxine Check TSH (4) COPD (chronic obstructive pulmonary disease): Code(s): J44.9 - Chronic obstructive pulmonary disease, unspecified Status: Chronic Assessment and Plan: P.r.n. bronchodilators (5) Elevated d-dimer: Code(s): R79.89 - Other specified abnormal findings of blood chemistry Status: Acute Assessment and Plan: CTA negative for PE and lower extremity Dopplers negative for DVT. Plan DVT prophylaxis -continue heparin drip as per Cardiology recommendations Nutrition -diet ordered Code Status - Full Code Total Critical Care Time - 30 minutes Due to a high probability of clinically significant, life threatening deterioration, the patient required my highest level of preparedness to intervene emergently and I personally spent this critical care time directly and personally managing the patient. This critical care time included obtaining a history; examining the patient; pulse oximetry; ordering and review of studies; arranging urgent treatment with development of a management plan; evaluation of patient's response to treatment; frequent reassessment; and discussions with other providers. It was exclusive of separately billable procedures and treating other patients and teaching time. 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 Patient had several teeth removed on red stay and then she went for a follow-up appointment on and during evaluation she started having chest pain which she rated at 10 out 10 sharp in the middle of chest. Pain had no radiation no aggravating or relieving factors. She denied any nausea vomiting dizziness lightheadedness shortness of breath palpitations with that. She states she took nitroglycerin and after does the pain went away. Prior to her dentist office appointment she was feeling fine with no physical symptoms. She did hold her Plavix for 5 days for teeth removal. All other symptoms were reviewed and were negative In ER patient had abnormal EKG and mildly elevated troponin. Patient was started on heparin infusion after consultation with Cardiology. Patient was also started on nitroglycerin infusion and admitted to ICU for further evaluation management. This morning patient states she does not have any chest pain. Nitroglycerin was turned off overnight. Review of Systems Review of Systems: All systems reviewed & are unremarkable except as noted in HPI and below (HPI) [facility] Past Medical History Medical History Essential (primary) hypertension Atrophy of left kidney Cervicalgia Hypothyroid Aortic atherosclerosis 03/2013 COPD (chronic obstructive pulmonary disease) Moderate persistent asthma Pure hypercholesterolemia, unspecified Atherosclerotic heart disease of [place] coronary artery without angina pectoris Surgical History Surgical History H/O cardiac catheterization H/O tubal ligation H/O cataract extraction History of percutaneous transluminal coronary angioplasty x 4 History of coronary artery bypass graft 3 vessel History of cholecystectomy Family History Family History Mother Acute myocardial infarction Heart disease Hypertension Other Asthma Social History Social History Social History: Caffeine-coffee. She lives alone and is . She has 1 daughter. Code status: Full code Smoking status: Never smoker Second hand tobacco smoke exposure: No Alcohol intake: never Substance use: never Substance use type: does not use Lack of Transportation: No Lack of Food: Never True Current Housing: I Have Housing Concerned About Future Housing: No Difficulty Paying Gas/Electric Bills: No Difficulty Paying for Meds: No Currently Unemployed: No Education: High School Diploma/GED Difficulty w/ Childcare or Family Care: No Living arrangements: with family Occupation/Education: retired Gender identity (if verbalized by the patient): Female Spiritual care concerns: No Agree to blood products: Yes Meds Home Medications and Allergies Home Medications ?Medication ?Instructions ?Recorded ?Confirmed ?Type atorvastatin 80 mg tablet 80 mg PO DAILY 11/10/21 01/25/25 History clopidogrel 75 mg tablet 75 mg PO DAILY 11/10/21 01/25/25 History hydrochlorothiazide 100 mg tablet 25 mg PO DAILY 11/10/21 01/25/25 History isosorbide mononitrate 120 mg 120 mg PO DAILY 11/10/21 01/25/25 History tablet,extended release 24 hr metoprolol succinate 100 mg 50 mg PO BID 11/10/21 01/25/25 History tablet,extended release 24 hr umeclidinium 62.5 mcg-vilanterol 1 inh inhalation DAILY 11/10/21 01/25/25 History 25 mcg/actuation powdr for inhalation (Anoro Ellipta) levothyroxine 100 mcg tablet 100 mcg PO DAILY #90 tabs 04/12/24 01/25/25 Rx albuterol sulfate 90 mcg/actuation 1 puff inhalation Q4H PRN 06/21/24 01/25/25 Rx aerosol inhaler (Ventolin HFA) shortness of breath or wheezing #8.5 grams epinastine 0.05 % eye drops 1 drp EACH EYE Q12H 06/21/24 01/25/25 History montelukast 10 mg tablet 10 mg PO DAILY 06/21/24 01/25/25 History nitroglycerin 0.3 mg sublingual 0.3 mg sublingual Q5M PRN chest 06/21/24 01/25/25 History tablet pain prednisone 5 mg tablet 5 mg PO DAILY 07/26/24 01/25/25 History amlodipine 10 mg tablet 5 mg PO DAILY 10/16/24 01/25/25 History aspirin 81 mg tablet 81 mg PO DAILY 10/16/24 01/25/25 History mirtazapine 30 mg tablet 15 mg PO QHS 01/25/25 01/25/25 History Allergies Allergy/AdvReac Type Severity Reaction Status Date / Time meperidine Allergy Unknown N/V Verified 01/25/25 22:54 morphine Allergy Unknown N/V Verified 01/25/25 22:54 Sulfa (Sulfonamide Allergy Unknown ITCHING Verified 01/25/25 22:54 Antibiotics) tramadol AdvReac Unknown Nausea Verified 01/25/25 22:54 clarithromycin (From Biaxin) AdvReac Nausea Verified 01/25/25 22:54 hydrocodone (From Vicodin) AdvReac Nausea Verified 01/25/25 22:54 Vital Signs Vital Signs - 24 hr 01/25/25 14:25 01/25/25 14:31 01/25/25 14:31 Temperature 36.8 C Pulse Rate 81 79 Respiratory Rate 16 15 Blood Pressure 140/92 H 140/92 H Pulse Oximetry 97 97 96 Oxygen Delivery Room Air Autopap 01/25/25 14:32 01/25/25 14:32 01/25/25 17:16 Temperature Pulse Rate 80 77 98 Respiratory Rate 14 17 Blood Pressure 140/92 H 142/72 H Pulse Oximetry 97 95 Oxygen Delivery 01/25/25 17:31 01/25/25 18:16 01/25/25 18:31 Temperature Pulse Rate 76 79 75 Respiratory Rate 18 21 H 20 Blood Pressure 151/60 H 141/65 H 133/61 Pulse Oximetry 95 96 97 Oxygen Delivery 01/25/25 19:16 01/25/25 19:31 01/25/25 20:31 Temperature Pulse Rate 74 70 Respiratory Rate 20 14 Blood Pressure 141/78 H 148/72 H 149/62 H Pulse Oximetry 100 97 98 Oxygen Delivery 01/25/25 20:38 01/25/25 20:51 01/25/25 21:01 Temperature Pulse Rate 97 91 87 Respiratory Rate 17 18 Blood Pressure 149/62 H 156/70 H 152/62 H Pulse Oximetry 99 95 Oxygen Delivery 01/25/25 21:16 01/25/25 22:00 01/25/25 22:30 Temperature Pulse Rate 92 92 97 Respiratory Rate 17 17 Blood Pressure 136/63 142/62 H 132/81 Pulse Oximetry 96 100 Oxygen Delivery 01/25/25 22:43 01/25/25 23:00 01/25/25 23:11 Temperature 36.6 C Pulse Rate 97 92 97 Respiratory Rate 16 17 Blood Pressure 132/81 146/72 H Pulse Oximetry 96 100 Oxygen Delivery Room Air 01/25/25 23:11 01/26/25 00:00 01/26/25 00:00 Temperature 36.6 C Pulse Rate 97 92 100 Respiratory Rate 16 Blood Pressure 154/78 H 154/78 H Pulse Oximetry 96 Oxygen Delivery 01/26/25 00:00 01/26/25 01:00 01/26/25 01:00 Temperature Pulse Rate 107 H 81 96 Respiratory Rate 22 H 18 20 Blood Pressure 154/78 H 79/59 L 129/73 Pulse Oximetry 96 95 96 Oxygen Delivery 01/26/25 02:00 01/26/25 02:00 01/26/25 02:00 Temperature Pulse Rate 81 81 95 Respiratory Rate 19 17 Blood Pressure 104/62 141/75 H Pulse Oximetry 93 94 Oxygen Delivery 01/26/25 02:00 01/26/25 03:00 01/26/25 03:00 Temperature Pulse Rate 95 73 99 Respiratory Rate 18 17 Blood Pressure 141/75 H 72/44 L 145/74 H Pulse Oximetry 93 95 Oxygen Delivery 01/26/25 03:59 01/26/25 03:59 01/26/25 04:00 Temperature Pulse Rate 73 73 93 Respiratory Rate 18 Blood Pressure 161/83 H Pulse Oximetry 93 Oxygen Delivery Room Air 01/26/25 05:00 01/26/25 06:00 01/26/25 06:00 Temperature 36.8 C Pulse Rate 90 102 H 102 H Respiratory Rate 20 20 Blood Pressure 169/83 H 105/72 Pulse Oximetry 95 93 Oxygen Delivery 01/26/25 07:00 01/26/25 08:00 01/26/25 08:00 Temperature 36.3 C L Pulse Rate 103 H 103 H 105 H Respiratory Rate 20 13 Blood Pressure 173/71 H 137/67 137/67 Pulse Oximetry 95 97 Oxygen Delivery 01/26/25 08:00 01/26/25 08:00 01/26/25 08:15 Temperature Pulse Rate 107 H 103 H Respiratory Rate 20 Blood Pressure Pulse Oximetry 96 96 Oxygen Delivery Room Air Room Air 01/26/25 08:53 01/26/25 09:00 Temperature Pulse Rate 106 H 107 H Respiratory Rate 22 H Blood Pressure 151/77 H Pulse Oximetry 95 Oxygen Delivery Exam Narrative: General: Pt is alert awake and in NAD Lungs/Chest: Trachea central Clear BS B/L, No crackles or wheezing. Cardiac: RRR. Normal S1 S2. No murmurs Circulation: Pedal pulses are intact and symmetrical. Abdomen: Normal bowel sounds.. Soft. NT. ND. Extremities: Bilateral mild pitting edema : Voss in place Neurologic: Follows commands. Moves all 4 extremities PERRL AO x3 Skin: No Rash Results Labs 01/26/25 02:54 01/25/25 14:50 Labs: Impressions Chest X-Ray 01/25/25 15:18 IMPRESSION: No acute findings. Chest CTA 01/25/25 19:57 IMPRESSION: 1. No PE or other acute cardiopulmonary findings. Venous Doppler Study 01/26/25 08:48 Impression: Negative for DVT. Short CBC 01/25/25 01/26/25 Range/Units 14:50 02:54 WBC 10.7 H 10.6 H (4.5-10.0) K/mm3 Hgb 11.7 L 12.5 (12.0-15.0) g/dL Hct 35.6 L 38.6 (37.0-47.0) % Plt Count 244 259 (150-375) k/mm3 BMP 01/25/25 14:50 Sodium 136 L Potassium 2.9 L Chloride 102 Carbon Dioxide 31 H BUN 20 H Creatinine 0.87 Glucose 112 H Calcium 9.0 Cardiac Enzymes 01/25/25 01/25/25 01/25/25 Range/Units 14:50 17:46 20:47 Troponin I 0.014 0.013 0.018 D (0.000-0.034) ng/mL 01/25/25 01/26/25 Range/Units 23:53 02:54 Troponin I 0.175 H* D 0.197 H* (0.000-0.034) ng/mL Liver Function 01/25/25 Range/Units 14:50 Total Bilirubin 1.1 (0.2-1.3) mg/dL AST 23 (14-36) U/L ALT 17 (6-35) U/L Alkaline Phosphatase 51 (38-126) U/L Albumin 3.5 (3.5-5.1) g/dL Quality VTE Prophylaxis VTE prophylaxis: pharmacologic ordered Hospitalist MIPS Advance Care Plan I have confirmed that the patient's Advanced Care Plan is present, code status is documented, or surrogate decision maker is listed in patient medical record.: Yes Medication Reconciliation I have utilized all available resources to obtain, update and review the patients current medications (includes all prescriptions, OTC, herbals, cannabis, and nutritional supplements).: Yes
[2025-01-26] MEDS: ISOSORBIDE MONONITRATE 60 MG TAB.ER.24H 120 MG PO (09:36)
[2025-01-26] MEDS: PERFLUTREN LIPID MICROSPHERES 1.5 ML VIAL DILUTED TO 10 ML TOTAL VOLUME IV PUSH (09:44)
[2025-01-26] MEDS: ACETAMINOPHEN 325 MG TABLET 650 MG PO (09:45)
--- NOTE | 2025-01-26 09:45 | IVDEFINITY ---
Prior to administration of IV Definity the patient was educated on the risks and benefits of the imaging enhancing agent including potential adverse side effects. The patient verbalized understanding. Allergies were verified. No exclusion criteria were identified and at least one of the following inclusion criteria were met: 1) physician request, 2) patient technically difficult to image (per the [place] [employer] guidelines of two or more segments not discernable within the apical view), or 3) questionable left ventricular function. ?
--- NOTE | 2025-01-26 11:56 | PC.NURSE ---
Transferred patient to 210 via bed with heparin gtt running, report given to [facility]
[2025-01-26 12:12] LABS: Thyroid Stimulating Hormone Reflex 4.420 uIU/mL (0.465-4.68)
[2025-01-26 12:21] LABS: Partial Thromboplastin Time 188.0 Seconds (22.3-36.8)
--- NOTE | 2025-01-26 15:04 | PM.IMPN ---
Progress Note: A&P Assessment and Plan (1) NSTEMI (non-ST elevated myocardial infarction): Code(s): I21.4 - Non-ST elevation (NSTEMI) myocardial infarction Status: Acute Assessment and Plan: Patient presented with chest pain with normal EKG and mildly elevated troponin with uptrend suggestive of non ST elevation [place]. Chest pain has now resolved. Patient is off nitroglycerin infusion Patient has a history of coronary disease status post CABG and multiple stents in the past. Patient has complicated anatomy Patient was evaluated by Cardiology and at this point recommended medical management Patient was started on Imdur along with anticoagulation with IV heparin Continue aspirin Plavix, statin, heparin infusion and beta-yrn Telemetry monitoring Echo 01/26/2025 with grade 1 diastolic dysfunction no significant valvular abnormality. (2) Essential (primary) hypertension: Code(s): I10 - Essential (primary) hypertension Status: Acute Assessment and Plan: Continue metoprolol and Imdur (3) Hypothyroid: Code(s): E03.9 - Hypothyroidism, unspecified Status: Chronic Assessment and Plan: Continue levothyroxine TSH normal (4) COPD (chronic obstructive pulmonary disease): Code(s): J44.9 - Chronic obstructive pulmonary disease, unspecified Status: Chronic Assessment and Plan: P.r.n. bronchodilators (5) Elevated d-dimer: Code(s): R79.89 - Other specified abnormal findings of blood chemistry Status: Acute Assessment and Plan: CTA negative for PE and lower extremity Dopplers negative for DVT. Plan DVT prophylaxis -continue heparin drip as per Cardiology recommendations Nutrition -diet ordered Code Status - Full Code Subjective Date/time seen: 01/26/25 15:04 Interval history: No overnight events. Denies any chest pain. Remains on heparin drip. Review of Systems Review of Systems: All systems reviewed & are unremarkable except as noted in HPI and below (HPI) Exam Narrative: General: Pt is alert awake and in NAD Lungs/Chest: Trachea central Clear BS B/L, No crackles or wheezing. Cardiac: RRR. Normal S1 S2. No murmurs Circulation: Pedal pulses are intact and symmetrical. Abdomen: Normal bowel sounds.. Soft. NT. ND. Extremities: Bilateral mild pitting edema : Voss in place Neurologic: Follows commands. Moves all 4 extremities PERRL AO x3 Skin: No Rash Objective Data Vital Signs Vital Signs: Vital Signs - 24 hr 01/25/25 17:16 01/25/25 17:31 01/25/25 18:16 Temperature Pulse Rate 98 76 79 Respiratory Rate 17 18 21 H Blood Pressure 142/72 H 151/60 H 141/65 H Pulse Oximetry 95 95 96 Oxygen Delivery 01/25/25 18:31 01/25/25 19:16 01/25/25 19:31 Temperature Pulse Rate 75 74 70 Respiratory Rate 20 20 14 Blood Pressure 133/61 141/78 H 148/72 H Pulse Oximetry 97 100 97 Oxygen Delivery 01/25/25 20:31 01/25/25 20:38 01/25/25 20:51 Temperature Pulse Rate 97 91 Respiratory Rate 17 Blood Pressure 149/62 H 149/62 H 156/70 H Pulse Oximetry 98 99 Oxygen Delivery 01/25/25 21:01 01/25/25 21:16 01/25/25 22:00 Temperature Pulse Rate 87 92 92 Respiratory Rate 18 17 Blood Pressure 152/62 H 136/63 142/62 H Pulse Oximetry 95 96 Oxygen Delivery 01/25/25 22:30 01/25/25 22:43 01/25/25 23:00 Temperature 97.8 F Pulse Rate 97 97 92 Respiratory Rate 17 16 Blood Pressure 132/81 132/81 146/72 H Pulse Oximetry 100 96 Oxygen Delivery 01/25/25 23:11 01/25/25 23:11 01/26/25 00:00 Temperature 98 F Pulse Rate 97 97 92 Respiratory Rate 17 16 Blood Pressure 154/78 H Pulse Oximetry 100 96 Oxygen Delivery Room Air 01/26/25 00:00 01/26/25 00:00 01/26/25 01:00 Temperature Pulse Rate 100 107 H 81 Respiratory Rate 22 H 18 Blood Pressure 154/78 H 154/78 H 79/59 L Pulse Oximetry 96 95 Oxygen Delivery 01/26/25 01:00 01/26/25 02:00 01/26/25 02:00 Temperature Pulse Rate 96 81 81 Respiratory Rate 20 19 Blood Pressure 129/73 104/62 Pulse Oximetry 96 93 Oxygen Delivery 01/26/25 02:00 01/26/25 02:00 01/26/25 03:00 Temperature Pulse Rate 95 95 73 Respiratory Rate 17 18 Blood Pressure 141/75 H 141/75 H 72/44 L Pulse Oximetry 94 93 Oxygen Delivery 01/26/25 03:00 01/26/25 03:59 01/26/25 03:59 Temperature Pulse Rate 99 73 73 Respiratory Rate 17 18 Blood Pressure 145/74 H Pulse Oximetry 95 93 Oxygen Delivery Room Air 01/26/25 04:00 01/26/25 05:00 01/26/25 06:00 Temperature 98.2 F Pulse Rate 93 90 102 H Respiratory Rate 20 Blood Pressure 161/83 H 169/83 H Pulse Oximetry 95 Oxygen Delivery 01/26/25 06:00 01/26/25 07:00 01/26/25 08:00 Temperature Pulse Rate 102 H 103 H 103 H Respiratory Rate 20 20 Blood Pressure 105/72 173/71 H 137/67 Pulse Oximetry 93 95 Oxygen Delivery 01/26/25 08:00 01/26/25 08:00 01/26/25 08:00 Temperature 97.4 F L Pulse Rate 105 H 107 H 103 H Respiratory Rate 13 20 Blood Pressure 137/67 Pulse Oximetry 97 96 Oxygen Delivery Room Air 01/26/25 08:15 01/26/25 08:53 01/26/25 09:00 Temperature Pulse Rate 106 H 107 H Respiratory Rate 22 H Blood Pressure 151/77 H Pulse Oximetry 96 95 Oxygen Delivery Room Air 01/26/25 09:00 01/26/25 10:00 01/26/25 11:44 Temperature Pulse Rate 111 H 78 97 Respiratory Rate 22 H Blood Pressure 151/71 H Pulse Oximetry 97 Oxygen Delivery Room Air 01/26/25 12:00 Temperature 98.4 F Pulse Rate 73 Respiratory Rate 20 Blood Pressure 113/60 Pulse Oximetry 94 Oxygen Delivery Intake/Output Intake/Output: Intake & Output 01/23/25 01/24/25 01/25/25 01/26/25 23:59 23:59 23:59 23:59 Intake Total 552.1 500.4 Output Total 800 Balance 552.1 -299.6 Meds/Results Medications: Active Medications Generic Name Dose Route Start Last Admin Trade Name Freq PRN Reason Stop Dose Admin Acetaminophen 650 mg 01/25/25 21:10 01/26/25 09:45 Acetaminophen 325 Mg Tablet PO 650 mg Q4H PRN Administration Mild Pain (1-3) or Fever Hydrocodone Bitart/Acetaminophen 1 tab 01/26/25 09:40 Hydrocodone/Acetaminophen (*Crx) 5-325 Mg Tablet PO Q4H PRN Pain Rated 4-6 Albuterol 2 puff 01/26/25 00:40 Albuterol Sulfate (*Sp) Aerosol 1 Puff INHALATION Q4H PRN Shortness Of Breath Or Wheezing Aspirin 81 mg 01/26/25 09:00 01/26/25 08:52 Aspirin 81 Mg Enteric Tablet PO 81 mg QAM SOFI Administration Atorvastatin Calcium 80 mg 01/26/25 09:00 01/26/25 08:52 Atorvastatin 40 Mg Tablet PO 80 mg DAILY SOFI Administration Clopidogrel Bisulfate 75 mg 01/26/25 09:00 01/26/25 08:52 Clopidogrel Bisulfate 75 Mg Tablet PO 75 mg DAILY SOFI Administration Heparin Sodium (Porcine) 4,000 units 01/25/25 20:04 01/26/25 04:52 Heparin Sodium 5,000 Units/Ml Vial IV PUSH 4,000 units PRN PRN Administration aPTT less than 55 seconds Heparin Sodium (Porcine) 2,000 units 01/25/25 20:04 Heparin Sodium 5,000 Units/Ml Vial IV PUSH PRN PRN aPTT 55 - 70 seconds Hydrochlorothiazide 25 mg 01/26/25 09:00 01/26/25 09:36 Hydrochlorothiazide 25 Mg Tablet PO 25 mg QAM [facility] Administration Heparin Sodium/Dextrose 25,000 units in 250 mls @ 0 mls/hr 01/25/25 20:05 01/26/25 12:20 Heparin Sodium/D5w 100 Units/Ml IV CONT 0 units/hr .Q0M SOFI 0 mls/hr Protocol Titration 0 UNITS/HR Isosorbide Mononitrate 120 mg 01/26/25 09:00 01/26/25 09:36 Isosorbide Mononitrate 60 Mg Tab.Er.24h PO 120 mg QAM [facility] Administration Levothyroxine Sodium 100 mcg 01/26/25 06:30 01/26/25 06:35 Levothyroxine Sodium 100 Mcg Tablet PO 100 mcg DAILY@0630 [facility] Administration Metoprolol Succinate 100 mg 01/26/25 09:00 01/26/25 08:53 Metoprolol Succinate Ext Rel 100 Mg Tabcr PO 100 mg DAILY SOFI Administration Mirtazapine 15 mg 01/26/25 21:00 Mirtazapine Soltab 15 Mg Tab.Disper PO QHS [facility] Miscellaneous Information 0 each 01/26/25 05:15 01/26/25 10:51 Epinastine 0.05 % Drops- Nonformulary. Please Obtain A Home Supply If Possible Or Hold Whi XX 02/25/25 05:14 Not Given CLARIFY SOFI Montelukast Sodium 10 mg 01/26/25 09:00 01/26/25 08:52 Montelukast Sodium 10 Mg Tablet PO 10 mg DAILY SOFI Administration Non-Formulary Medication 1 drop 01/26/25 00:45 Epinastine EACH EYE 02/25/25 00:44 Q12H SOFI Ondansetron HCl 4 mg 01/25/25 21:10 Ondansetron Inj 4 Mg/2 Ml Vial IV PUSH Q4H PRN Nausea Prednisone 5 mg 01/26/25 08:00 01/26/25 08:52 Prednisone 5 Mg Tablet PO 5 mg DAILY@0800 SOFI Administration Umeclidinium/Vilanterol 1 puff 01/26/25 08:00 01/26/25 08:07 Umeclidinium/Vilanterol 62.5-25 Mcg Ellipta INHALATION 1 puff DAILYRT SOFI Administration Radiology Results: ITS Impressions Chest X-Ray 01/25/25 15:18 IMPRESSION: No acute findings. Chest CTA 01/25/25 19:57 IMPRESSION: 1. No PE or other acute cardiopulmonary findings. Venous Doppler Study 01/26/25 08:48 Impression: Negative for DVT. Labs Labs: Laboratory Results - last 24 hr 01/25/25 01/25/25 01/25/25 14:50 17:46 17:46 WBC RBC Hgb Hct MCV MCH MCHC RDW Plt Count MPV Immature Gran % (Auto) Neut % (Auto) Lymph % (Auto) [place] % (Auto) Eos % (Auto) Baso % (Auto) Lymph # (Auto) [place] # (Auto) Eos # (Auto) Baso # (Auto) Abs Immat Gran (auto) Absolute Neuts (auto) Absolute Nucleated RBC Nucleated RBC % PT 13.7 INR 1.1 APTT 29.6 D-Dimer 1.50 H Sodium 136 L Potassium 2.9 L Chloride 102 Carbon Dioxide 31 H Anion Gap 3 L BUN 20 H Creatinine 0.87 Estim Creat Clear Calc 36 Estimated GFR > 60 Glucose 112 H Calcium 9.0 Magnesium 1.7 Cancelled Total Bilirubin 1.1 AST 23 ALT 17 Alkaline Phosphatase 51 Troponin I 0.014 0.013 NT-Pro-B Natriuret Pep 528 H Total Protein 6.5 Albumin 3.5 Lipase 40 TSH (Reflex) Nasal MRSA (PCR) 01/25/25 01/25/25 01/25/25 20:47 21:29 23:53 WBC RBC Hgb Hct MCV MCH MCHC RDW Plt Count MPV Immature Gran % (Auto) Neut % (Auto) Lymph % (Auto) [place] % (Auto) Eos % (Auto) Baso % (Auto) Lymph # (Auto) [place] # (Auto) Eos # (Auto) Baso # (Auto) Abs Immat Gran (auto) Absolute Neuts (auto) Absolute Nucleated RBC Nucleated RBC % PT INR APTT D-Dimer Sodium Potassium Chloride Carbon Dioxide Anion Gap BUN Creatinine Estim Creat Clear Calc Estimated GFR Glucose Calcium Magnesium Total Bilirubin AST ALT Alkaline Phosphatase Troponin I 0.018 D 0.175 H* D NT-Pro-B Natriuret Pep Total Protein Albumin Lipase TSH (Reflex) Nasal MRSA (PCR) Not detected 01/26/25 01/26/25 01/26/25 02:54 07:16 11:22 WBC 10.6 H RBC 4.26 Hgb 12.5 Hct 38.6 MCV 90.6 MCH 29.3 MCHC 32.4 RDW 14.1 Plt Count 259 MPV 9.3 Immature Gran % (Auto) 0.4 Neut % (Auto) 61.6 Lymph % (Auto) 22.9 [place] % (Auto) 11.2 H Eos % (Auto) 3.3 Baso % (Auto) 0.6 Lymph # (Auto) 2.42 [place] # (Auto) 1.2 H Eos # (Auto) 0.4 H Baso # (Auto) 0.1 Abs Immat Gran (auto) 0.04 H Absolute Neuts (auto) 6.5 Absolute Nucleated RBC 0.000 Nucleated RBC % 0.0 PT INR APTT 30.2 188.0 H* D-Dimer Sodium Potassium Chloride Carbon Dioxide Anion Gap BUN Creatinine Estim Creat Clear Calc Estimated GFR Glucose Calcium Magnesium 2.2 Total Bilirubin AST ALT Alkaline Phosphatase Troponin I 0.197 H* NT-Pro-B Natriuret Pep Total Protein Albumin Lipase TSH (Reflex) 4.420 Nasal MRSA (PCR)
[2025-01-26 15:07] LABS: Free T4 Free Thyroxine Reflex 3.38 ng/dL (0.78-2.19)
[2025-01-26 17:41] LABS: Partial Thromboplastin Time 73.3 Seconds (22.3-36.8)
[2025-01-26] MEDS: MIRTAZAPINE SOLTAB 15 MG TAB.DISPER PO (20:53)
[2025-01-26 23:25] LABS: Partial Thromboplastin Time 123.1 Seconds (22.3-36.8)
[2025-01-27] VITALS (17 sets, daily range): BP systolic 109–146; BP diastolic 57–75; PULSE 61–92; RESP 15–20; TEMP 36.4–36.9; O2SAT 95–98
[2025-01-27] MEDS: HEPARIN SOD/D5W 100 UNITS/ML 25,000 UNITS/250 ML BAG 6 UNITS IV CONT (05:17)
[2025-01-27] MEDS: LEVOTHYROXINE SODIUM 100 MCG TABLET PO (05:18)
[2025-01-27 06:33] LABS: Hematocrit 35.1 % (37.0-47.0); Hemoglobin 11.5 g/dL (12.0-15.0); Mean Corpuscular HGB Conc 32.8 g/dl (32-36); Mean Corpuscular Hemoglobin 29.6 pg (26-34); Mean Corpuscular Volume 90.5 fl (80-100); Platelet Count Result 243 k/mm3 (150-375); Red Blood Count 3.88 M/mm3 (4.2-5.4); White Blood Count 10.5 K/mm3 (4.5-10.0)
[2025-01-27 06:42] LABS: Alanine Aminotransferase 15 U/L (6-35); Albumin Level 3.4 g/dL (3.5-5.1); Alkaline Phosphatase 53 U/L (38-126); Anion Gap 4 mmol/L (4-12); Aspartate Amino Transferase 24 U/L (14-36); Bilirubin,Total 0.8 mg/dL (0.2-1.3); Blood Urea Nitrogen 15 mg/dL (7-17); Calcium 8.6 mg/dL (8.4-10.2); Carbon Dioxide 27 mmol/L (22-30); Chloride 106 mmol/L (98-107); Estimated CRCL calculation 40 ml/min; Estimated Glomerular Filt Rate > 60; Glucose 110 mg/dL (65-110); Magnesium 1.9 mg/dL (1.6-2.3); Potassium 2.9 mmol/L (3.4-5.0); Sodium 137 mmol/L (137-145); Total Protein 6.3 g/dL (6.3-8.2)
[2025-01-27 06:44] LABS: Partial Thromboplastin Time 79.4 Seconds (22.3-36.8)
[2025-01-27] MEDS: UMECLIDINIUM/VILANTEROL 62.5-25 MCG ELLIPTA 1 PUFF INHALATION (07:37)
[2025-01-27] MEDS: ASPIRIN 81 MG ENTERIC TABLET PO (08:19)
[2025-01-27] MEDS: ACETAMINOPHEN 325 MG TABLET 650 MG PO (08:19)
[2025-01-27] MEDS: METOPROLOL SUCCINATE EXT REL 100 MG TABCR PO (08:19)
[2025-01-27] MEDS: MONTELUKAST SODIUM 10 MG TABLET PO (08:21)
[2025-01-27] MEDS: ATORVASTATIN 40 MG TABLET 80 MG PO (08:21)
[2025-01-27] MEDS: ISOSORBIDE MONONITRATE 60 MG TAB.ER.24H 120 MG PO (08:22)
[2025-01-27] MEDS: CLOPIDOGREL BISULFATE 75 MG TABLET PO (08:22)
--- NOTE | 2025-01-27 11:48 | PM.PNCARD ---
Progress Note: A&P Assessment and Plan (1) NSTEMI (non-ST elevated myocardial infarction): Code(s): I21.4 - Non-ST elevation (NSTEMI) myocardial infarction Status: Acute Assessment and Plan: NSTEMI Hx of CABG complex anatomy and decision for medical management. History of asthma Plan Continue heparin infusion for 48 hours Aspirin Plavix Statin Imdur Metoprolol Subjective Date/time seen: 01/27/25 11:48 Interval history: Patient seen for follow-up for chest pain unstable angina No acute events Telemetry sinus rhythm Review of Systems Review of Systems: All systems reviewed & are unremarkable except as noted in HPI and below Exam Const: General: comfortable and no acute distress Other: Very pleasant elderly lady in no distress HENMT: Mouth: Yes moist mucous membranes Eyes: Sclera: sclerae normal Neck: Neck: supple and no JVD Resp: Effort & Inspection: normal respiratory effort Auscultation: clear to auscultation bilaterally Cardio: Rate: regular rate Rhythm: regular rhythm Other: Soft systolic murmur does not radiate from the left sternal border no diastolic murmur no gallop GI: GI Palp: Yes Soft to palpation Auscultation: normal bowel sounds Skin: General skin exam: normal color Neuro: Other: Alert and oriented times Extrem: Other: No edema, very good distal pulses Objective Data Vital Signs Vital Signs: Vital Signs - 24 hr 01/26/25 12:00 01/26/25 12:00 01/26/25 14:00 Temperature 36.9 C Pulse Rate 73 84 85 Respiratory Rate 20 Blood Pressure 113/60 Pulse Oximetry 94 Oxygen Delivery 01/26/25 15:59 01/26/25 16:00 01/26/25 16:00 Temperature 37.0 C Pulse Rate 74 70 Respiratory Rate 20 Blood Pressure 111/51 L Pulse Oximetry 94 94 Oxygen Delivery Room Air 01/26/25 18:00 01/26/25 19:56 01/26/25 20:00 Temperature 36.6 C Pulse Rate 74 70 62 Respiratory Rate 16 Blood Pressure 141/51 H Pulse Oximetry 98 Oxygen Delivery 01/26/25 20:50 01/26/25 21:41 01/26/25 22:00 Temperature Pulse Rate 65 Respiratory Rate Blood Pressure Pulse Oximetry 98 Oxygen Delivery Room Air Room Air 01/26/25 23:26 01/27/25 00:00 01/27/25 00:05 Temperature 36.6 C Pulse Rate 72 70 Respiratory Rate 16 Blood Pressure 146/51 H Pulse Oximetry 98 Oxygen Delivery Room Air 01/27/25 02:00 01/27/25 04:00 01/27/25 04:00 Temperature 36.9 C Pulse Rate 71 74 78 Respiratory Rate 18 Blood Pressure 146/67 H Pulse Oximetry 98 Oxygen Delivery 01/27/25 04:10 01/27/25 06:00 01/27/25 07:39 Temperature Pulse Rate 68 76 Respiratory Rate 15 Blood Pressure Pulse Oximetry Oxygen Delivery Room Air 01/27/25 08:00 01/27/25 08:19 01/27/25 08:26 Temperature 36.8 C Pulse Rate 92 82 82 Respiratory Rate 16 Blood Pressure 140/57 L Pulse Oximetry 96 Oxygen Delivery 01/27/25 10:00 Temperature Pulse Rate 66 Respiratory Rate Blood Pressure Pulse Oximetry Oxygen Delivery Intake/Output Intake/Output: Intake & Output 01/24/25 01/25/25 01/26/25 01/27/25 23:59 23:59 23:59 23:59 Intake Total 552.1 677.5 388.8 Output Total 800 700 Balance 552.1 -122.5 -311.2 Meds/Results Medications: Active Medications Generic Name Dose Route Start Last Admin Trade Name Bradyq PRN Reason Stop Dose Admin Acetaminophen 650 mg 01/25/25 21:10 01/27/25 08:19 Acetaminophen 325 Mg Tablet PO 650 mg Q4H PRN Administration Mild Pain (1-3) or Fever Hydrocodone Bitart/Acetaminophen 1 tab 01/26/25 09:40 Hydrocodone/Acetaminophen (*Crx) 5-325 Mg Tablet PO Q4H PRN Pain Rated 4-6 Albuterol 2 puff 01/26/25 00:40 Albuterol Sulfate (*Sp) Aerosol 1 Puff INHALATION Q4H PRN Shortness Of Breath Or Wheezing Aspirin 81 mg 01/26/25 09:00 01/27/25 08:19 Aspirin 81 Mg Enteric Tablet PO 81 mg QAM SOFI Administration Atorvastatin Calcium 80 mg 01/26/25 09:00 01/27/25 08:21 Atorvastatin 40 Mg Tablet PO 80 mg DAILY SOFI Administration Clopidogrel Bisulfate 75 mg 01/26/25 09:00 01/27/25 08:22 Clopidogrel Bisulfate 75 Mg Tablet PO 75 mg DAILY SOFI Administration Heparin Sodium (Porcine) 4,000 units 01/25/25 20:04 01/26/25 04:52 Heparin Sodium 5,000 Units/Ml Vial IV PUSH 4,000 units PRN PRN Administration aPTT less than 55 seconds Heparin Sodium (Porcine) 2,000 units 01/25/25 20:04 Heparin Sodium 5,000 Units/Ml Vial IV PUSH PRN PRN aPTT 55 - 70 seconds Hydrochlorothiazide 25 mg 01/26/25 09:00 01/27/25 08:19 Hydrochlorothiazide 25 Mg Tablet PO 25 mg QAM SOFI Administration Heparin Sodium/Dextrose 25,000 units in 250 mls @ 6 mls/hr 01/25/25 20:05 01/27/25 06:50 Heparin Sodium/D5w 100 Units/Ml IV CONT 600 units/hr .Q24H SOFI 6 mls/hr Protocol Titration 600 UNITS/HR Isosorbide Mononitrate 120 mg 01/26/25 09:00 01/27/25 08:22 Isosorbide Mononitrate 60 Mg Tab.Er.24h PO 120 mg QAM SOFI Administration Levothyroxine Sodium 100 mcg 01/26/25 06:30 01/27/25 05:18 Levothyroxine Sodium 100 Mcg Tablet PO 100 mcg DAILY@0630 SOFI Administration Metoprolol Succinate 100 mg 01/26/25 09:00 01/27/25 08:19 Metoprolol Succinate Ext Rel 100 Mg Tabcr PO 100 mg DAILY SOFI Administration Mirtazapine 15 mg 01/26/25 21:00 01/26/25 20:53 Mirtazapine Soltab 15 Mg Tab.Disper PO 15 mg QHS SOFI Administration Miscellaneous Information 0 each 01/26/25 05:15 01/27/25 00:54 Epinastine 0.05 % Drops- Nonformulary. Please Obtain A Home Supply If Possible Or Hold Whi XX 02/25/25 05:14 Not Given [facility] Montelukast Sodium 10 mg 01/26/25 09:00 01/27/25 08:21 Montelukast Sodium 10 Mg Tablet PO 10 mg DAILY SOFI Administration Non-Formulary Medication 1 drop 01/26/25 00:45 Epinastine EACH EYE 02/25/25 00:44 Q12H [facility] Ondansetron HCl 4 mg 01/25/25 21:10 Ondansetron Inj 4 Mg/2 Ml Vial IV PUSH Q4H PRN Nausea Prednisone 5 mg 01/26/25 08:00 01/27/25 08:19 Prednisone 5 Mg Tablet PO 5 mg DAILY@0800 SOFI Administration Umeclidinium/Vilanterol 1 puff 01/26/25 08:00 01/27/25 07:37 Umeclidinium/Vilanterol 62.5-25 Mcg Ellipta INHALATION 1 puff DAILYRT SOFI Administration Radiology Results: ITS Impressions Chest X-Ray 01/25/25 15:18 IMPRESSION: No acute findings. Chest CTA 01/25/25 19:57 IMPRESSION: 1. No PE or other acute cardiopulmonary findings. Venous Doppler Study 01/26/25 08:48 Impression: Negative for DVT. Labs Labs: Laboratory Results - last 24 hr 01/26/25 01/26/25 01/26/25 11:22 17:12 23:05 WBC RBC Hgb Hct MCV MCH MCHC RDW Plt Count MPV APTT 188.0 H* 73.3 H 123.1 H Sodium Potassium Chloride Carbon Dioxide Anion Gap BUN Creatinine Estim Creat Clear Calc Estimated GFR Glucose Calcium Magnesium Total Bilirubin AST ALT Alkaline Phosphatase Total Protein Albumin TSH (Reflex) 4.420 Free T4 3.38 H 01/27/25 06:19 WBC 10.5 H RBC 3.88 L Hgb 11.5 L Hct 35.1 L MCV 90.5 MCH 29.6 MCHC 32.8 RDW 14.1 Plt Count 243 MPV 9.5 APTT 79.4 H Sodium 137 Potassium 2.9 L Chloride 106 Carbon Dioxide 27 Anion Gap 4 BUN 15 D Creatinine 0.75 Estim Creat Clear Calc 40 Estimated GFR > 60 Glucose 110 Calcium 8.6 Magnesium 1.9 Total Bilirubin 0.8 AST 24 ALT 15 Alkaline Phosphatase 53 Total Protein 6.3 Albumin 3.4 L TSH (Reflex) Free T4
--- NOTE | 2025-01-27 12:53 | P.PNIM_ITS ---
Progress Note: A&P Assessment and Plan (1) Unstable angina pectoris: Code(s): I20.0 - Unstable angina Status: Acute (2) Essential (primary) hypertension: Code(s): I10 - Essential (primary) hypertension Status: Acute Assessment and Plan: Continue metoprolol and Imdur (3) Hypothyroid: Code(s): E03.9 - Hypothyroidism, unspecified Status: Chronic Assessment and Plan: Continue levothyroxine TSH normal (4) Hypokalemia: Code(s): E87.6 - Hypokalemia Status: Acute (5) Magnesium deficiency: Code(s): E61.2 - Magnesium deficiency Status: Acute (6) Moderate persistent asthma: Code(s): J45.40 - Moderate persistent asthma, uncomplicated Status: Chronic Assessment and Plan: (7) Elevated d-dimer: Code(s): R79.89 - Other specified abnormal findings of blood chemistry Status: Acute Assessment and Plan: CTA negative for PE and lower extremity Dopplers negative for DVT. (8) NSTEMI (non-ST elevated myocardial infarction): Code(s): I21.4 - Non-ST elevation (NSTEMI) myocardial infarction Status: Acute Assessment and Plan: Patient presented with chest pain with normal EKG and mildly elevated troponin with uptrend suggestive of non ST elevation [place]. Chest pain has now resolved. Patient is off nitroglycerin infusion Patient has a history of coronary disease status post CABG and multiple stents in the past. Patient has complicated anatomy Patient was evaluated by Cardiology and at this point recommended medical management Patient was started on Imdur along with anticoagulation with IV heparin. Remains on IV heparin per Cardiology Continue aspirin Plavix, statin, heparin infusion and beta-yrn Telemetry monitoring Echo 01/26/2025 with grade 1 diastolic dysfunction no significant valvular abnormality. (9) COPD (chronic obstructive pulmonary disease): Code(s): J44.9 - Chronic obstructive pulmonary disease, unspecified Status: Chronic Assessment and Plan: P.r.n. bronchodilators Plan DVT prophylaxis -continue heparin drip as per Cardiology recommendations Nutrition -diet ordered Code Status - Full Code Subjective Date/time seen: 01/27/25 12:53 Interval history: No overnight events. Remains on heparin drip. No chest pain reported. Review of Systems Review of Systems: All systems reviewed & are unremarkable except as noted in HPI and below (HPI) Exam Narrative: General: Pt is alert awake and in NAD Lungs/Chest: Trachea central Clear BS B/L, No crackles or wheezing. Cardiac: RRR. Normal S1 S2. No murmurs Circulation: Pedal pulses are intact and symmetrical. Abdomen: Normal bowel sounds.. Soft. NT. ND. Extremities: Bilateral mild pitting edema : Voss in place Neurologic: Follows commands. Moves all 4 extremities PERRL AO x3 Skin: No Rash Objective Data Vital Signs Vital Signs: Vital Signs - 24 hr 01/26/25 14:00 01/26/25 15:59 01/26/25 16:00 Temperature 98.6 F Pulse Rate 85 74 70 Respiratory Rate 20 Blood Pressure 111/51 L Pulse Oximetry 94 Oxygen Delivery 01/26/25 16:00 01/26/25 18:00 01/26/25 19:56 Temperature 98 F Pulse Rate 74 70 Respiratory Rate 16 Blood Pressure 141/51 H Pulse Oximetry 94 98 Oxygen Delivery Room Air 01/26/25 20:00 01/26/25 20:50 01/26/25 21:41 Temperature Pulse Rate 62 Respiratory Rate Blood Pressure Pulse Oximetry 98 Oxygen Delivery Room Air Room Air 01/26/25 22:00 01/26/25 23:26 01/27/25 00:00 Temperature 98 F Pulse Rate 65 72 70 Respiratory Rate 16 Blood Pressure 146/51 H Pulse Oximetry 98 Oxygen Delivery 01/27/25 00:05 01/27/25 02:00 01/27/25 04:00 Temperature Pulse Rate 71 74 Respiratory Rate Blood Pressure Pulse Oximetry Oxygen Delivery Room Air 01/27/25 04:00 01/27/25 04:10 01/27/25 06:00 Temperature 98.4 F Pulse Rate 78 68 Respiratory Rate 18 Blood Pressure 146/67 H Pulse Oximetry 98 Oxygen Delivery Room Air 01/27/25 07:39 01/27/25 08:00 01/27/25 08:19 Temperature Pulse Rate 76 92 82 Respiratory Rate 15 Blood Pressure Pulse Oximetry Oxygen Delivery 01/27/25 08:26 01/27/25 10:00 01/27/25 12:00 Temperature 98.3 F 97.9 F Pulse Rate 82 66 76 Respiratory Rate 16 16 Blood Pressure 140/57 L 113/64 Pulse Oximetry 96 96 Oxygen Delivery Intake/Output Intake/Output: Intake & Output 01/24/25 01/25/25 01/26/25 01/27/25 23:59 23:59 23:59 23:59 Intake Total 552.1 677.5 388.8 Output Total 800 700 Balance 552.1 -122.5 -311.2 Meds/Results Medications: Active Medications Generic Name Dose Route Start Last Admin Trade Name Freq PRN Reason Stop Dose Admin Acetaminophen 650 mg 01/25/25 21:10 01/27/25 08:19 Acetaminophen 325 Mg Tablet PO 650 mg Q4H PRN Administration Mild Pain (1-3) or Fever Hydrocodone Bitart/Acetaminophen 1 tab 01/26/25 09:40 Hydrocodone/Acetaminophen (*Crx) 5-325 Mg Tablet PO Q4H PRN Pain Rated 4-6 Albuterol 2 puff 01/26/25 00:40 Albuterol Sulfate (*Sp) Aerosol 1 Puff INHALATION Q4H PRN Shortness Of Breath Or Wheezing Aspirin 81 mg 01/26/25 09:00 01/27/25 08:19 Aspirin 81 Mg Enteric Tablet PO 81 mg QAM SOFI Administration Atorvastatin Calcium 80 mg 01/26/25 09:00 01/27/25 08:21 Atorvastatin 40 Mg Tablet PO 80 mg DAILY SOFI Administration Clopidogrel Bisulfate 75 mg 01/26/25 09:00 01/27/25 08:22 Clopidogrel Bisulfate 75 Mg Tablet PO 75 mg DAILY SOFI Administration Heparin Sodium (Porcine) 4,000 units 01/25/25 20:04 01/26/25 04:52 Heparin Sodium 5,000 Units/Ml Vial IV PUSH 4,000 units PRN PRN Administration aPTT less than 55 seconds Heparin Sodium (Porcine) 2,000 units 01/25/25 20:04 Heparin Sodium 5,000 Units/Ml Vial IV PUSH PRN PRN aPTT 55 - 70 seconds Hydrochlorothiazide 25 mg 01/26/25 09:00 01/27/25 08:19 Hydrochlorothiazide 25 Mg Tablet PO 25 mg QAM SOFI Administration Heparin Sodium/Dextrose 25,000 units in 250 mls @ 6 mls/hr 01/25/25 20:05 01/27/25 06:50 Heparin Sodium/D5w 100 Units/Ml IV CONT 600 units/hr .Q24H SOFI 6 mls/hr Protocol Titration 600 UNITS/HR Isosorbide Mononitrate 120 mg 01/26/25 09:00 01/27/25 08:22 Isosorbide Mononitrate 60 Mg Tab.Er.24h PO 120 mg QAM SOFI Administration Levothyroxine Sodium 100 mcg 01/26/25 06:30 01/27/25 05:18 Levothyroxine Sodium 100 Mcg Tablet PO 100 mcg DAILY@0630 SOFI Administration Metoprolol Succinate 100 mg 01/26/25 09:00 01/27/25 08:19 Metoprolol Succinate Ext Rel 100 Mg Tabcr PO 100 mg DAILY SOFI Administration Mirtazapine 15 mg 01/26/25 21:00 01/26/25 20:53 Mirtazapine Soltab 15 Mg Tab.Disper PO 15 mg QHS SOFI Administration Miscellaneous Information 0 each 01/26/25 05:15 01/27/25 00:54 Epinastine 0.05 % Drops- Nonformulary. Please Obtain A Home Supply If Possible Or Hold Whi XX 02/25/25 05:14 Not Given [facility] Montelukast Sodium 10 mg 01/26/25 09:00 01/27/25 08:21 Montelukast Sodium 10 Mg Tablet PO 10 mg DAILY SOFI Administration Non-Formulary Medication 1 drop 01/26/25 00:45 Epinastine EACH EYE 02/25/25 00:44 Q12H [facility] Ondansetron HCl 4 mg 01/25/25 21:10 Ondansetron Inj 4 Mg/2 Ml Vial IV PUSH Q4H PRN Nausea Prednisone 5 mg 01/26/25 08:00 01/27/25 08:19 Prednisone 5 Mg Tablet PO 5 mg DAILY@0800 [facility] Administration Umeclidinium/Vilanterol 1 puff 01/26/25 08:00 01/27/25 07:37 Umeclidinium/Vilanterol 62.5-25 Mcg Ellipta INHALATION 1 puff DAILYRT SOFI Administration Radiology Results: ITS Impressions Chest X-Ray 01/25/25 15:18 IMPRESSION: No acute findings. Chest CTA 01/25/25 19:57 IMPRESSION: 1. No PE or other acute cardiopulmonary findings. Venous Doppler Study 01/26/25 08:48 Impression: Negative for DVT. Labs Labs: Laboratory Results - last 24 hr 01/26/25 01/26/25 01/26/25 11:22 17:12 23:05 WBC RBC Hgb Hct MCV MCH MCHC RDW Plt Count MPV APTT 73.3 H 123.1 H Sodium Potassium Chloride Carbon Dioxide Anion Gap BUN Creatinine Estim Creat Clear Calc Estimated GFR Glucose Calcium Magnesium Total Bilirubin AST ALT Alkaline Phosphatase Total Protein Albumin Free T4 3.38 H 01/27/25 06:19 WBC 10.5 H RBC 3.88 L Hgb 11.5 L Hct 35.1 L MCV 90.5 MCH 29.6 MCHC 32.8 RDW 14.1 Plt Count 243 MPV 9.5 APTT 79.4 H Sodium 137 Potassium 2.9 L Chloride 106 Carbon Dioxide 27 Anion Gap 4 BUN 15 D Creatinine 0.75 Estim Creat Clear Calc 40 Estimated GFR > 60 Glucose 110 Calcium 8.6 Magnesium 1.9 Total Bilirubin 0.8 AST 24 ALT 15 Alkaline Phosphatase 53 Total Protein 6.3 Albumin 3.4 L Free T4
[2025-01-27] MEDS: POTASSIUM CHLORIDE 20 MEQ ER TABLET 40 MEQ PO (13:08)
[2025-01-27 13:31] LABS: Partial Thromboplastin Time 60.2 Seconds (22.3-36.8)
[2025-01-27] MEDS: MIRTAZAPINE SOLTAB 15 MG TAB.DISPER PO (20:30)
[2025-01-27 21:04] LABS: Partial Thromboplastin Time 161.8 Seconds (22.3-36.8)
[2025-01-28] VITALS (17 sets, daily range): BP systolic 112–153; BP diastolic 50–66; PULSE 59–79; RESP 18–21; TEMP 36.4–36.8; O2SAT 95–97
--- NOTE | 2025-01-28 01:55 | PC.NURSE ---
Daylight Savings Time For Daylight Savings Time Ending in the Fall - Clocks are moved back. For Daylight Savings Time Beginning in the Spring - Clocks are moved ahead. For [facility], the time of change occurs at 0200 hrs. Time is taken from the service observer. This entry on the patient's chart recognizes the change in time reflected during documentation. Example: 2 entries for vital signs may be charted for 0200 hrs.
--- NOTE | 2025-01-28 01:57 | PC.NURSE ---
Daylight Savings Time For Daylight Savings Time Ending in the Fall - Clocks are moved back. For Daylight Savings Time Beginning in the Spring - Clocks are moved ahead. For [facility], the time of change occurs at 0200 hrs. Time is taken from the cafe server. This entry on the patient's chart recognizes the change in time reflected during documentation. Example: 2 entries for vital signs may be charted for 0200 hrs.
[2025-01-28 04:11] LABS: Hematocrit 35.1 % (37.0-47.0); Hemoglobin 11.1 g/dL (12.0-15.0); Mean Corpuscular HGB Conc 31.6 g/dl (32-36); Mean Corpuscular Hemoglobin 29.4 pg (26-34); Mean Corpuscular Volume 93.1 fl (80-100); Platelet Count Result 261 k/mm3 (150-375); Red Blood Count 3.77 M/mm3 (4.2-5.4); White Blood Count 9.5 K/mm3 (4.5-10.0)
[2025-01-28 04:24] LABS: Partial Thromboplastin Time 62.1 Seconds (22.3-36.8)
[2025-01-28 04:48] LABS: Alanine Aminotransferase 18 U/L (6-35); Albumin Level 3.4 g/dL (3.5-5.1); Alkaline Phosphatase 50 U/L (38-126); Anion Gap 4 mmol/L (4-12); Aspartate Amino Transferase 29 U/L (14-36); Bilirubin,Total 0.8 mg/dL (0.2-1.3); Blood Urea Nitrogen 17 mg/dL (7-17); Calcium 8.7 mg/dL (8.4-10.2); Carbon Dioxide 26 mmol/L (22-30); Chloride 108 mmol/L (98-107); Estimated CRCL calculation 41 ml/min; Estimated Glomerular Filt Rate > 60; Glucose 95 mg/dL (65-110); Magnesium 1.8 mg/dL (1.6-2.3); Potassium 3.8 mmol/L (3.4-5.0); Sodium 138 mmol/L (137-145); Total Protein 6.4 g/dL (6.3-8.2)
[2025-01-28] MEDS: LEVOTHYROXINE SODIUM 100 MCG TABLET PO (05:41)
[2025-01-28] MEDS: UMECLIDINIUM/VILANTEROL 62.5-25 MCG ELLIPTA 1 PUFF INHALATION (08:16)
[2025-01-28] MEDS: MONTELUKAST SODIUM 10 MG TABLET PO (09:18)
[2025-01-28] MEDS: METOPROLOL SUCCINATE EXT REL 100 MG TABCR PO (09:18)
[2025-01-28] MEDS: ISOSORBIDE MONONITRATE 60 MG TAB.ER.24H 120 MG PO (09:18)
[2025-01-28] MEDS: CLOPIDOGREL BISULFATE 75 MG TABLET PO (09:18)
[2025-01-28] MEDS: ATORVASTATIN 40 MG TABLET 80 MG PO (09:18)
[2025-01-28] MEDS: ASPIRIN 81 MG ENTERIC TABLET PO (09:18)
[2025-01-28] MEDS: ACETAMINOPHEN 325 MG TABLET 650 MG PO (09:22)
--- NOTE | 2025-01-28 10:25 | PM.IMPN ---
Progress Note: A&P Assessment and Plan (1) NSTEMI (non-ST elevated myocardial infarction): Code(s): I21.4 - Non-ST elevation (NSTEMI) myocardial infarction Status: Acute Assessment and Plan: Patient presented with chest pain with normal EKG and mildly elevated troponin with uptrend suggestive of non ST elevation [place]. Chest pain has now resolved. Patient is off nitroglycerin infusion Patient has a history of coronary disease status post CABG and multiple stents in the past. Patient has complicated anatomy Patient was evaluated by Cardiology and at this point recommended medical management Patient was started on Imdur along with anticoagulation with IV heparin. Remains on IV heparin per Cardiology Continue aspirin Plavix, statin, heparin infusion and beta-yrn Telemetry monitoring Echo 01/26/2025 with grade 1 diastolic dysfunction no significant valvular abnormality. 01/28 Should be ready to stop heparin drip soon and try increasing activity (2) Essential (primary) hypertension: Code(s): I10 - Essential (primary) hypertension Status: Acute Assessment and Plan: Continue metoprolol and Imdur (3) Hypothyroid: Code(s): E03.9 - Hypothyroidism, unspecified Status: Chronic Assessment and Plan: Continue levothyroxine TSH normal (4) Hypokalemia: Code(s): E87.6 - Hypokalemia Status: Acute Assessment and Plan: Resolved (5) Magnesium deficiency: Code(s): E61.2 - Magnesium deficiency Status: Acute Assessment and Plan: Resolved (6) Moderate persistent asthma: Code(s): J45.40 - Moderate persistent asthma, uncomplicated Status: Chronic Assessment and Plan: Controlled (7) Elevated d-dimer: Code(s): R79.89 - Other specified abnormal findings of blood chemistry Status: Acute Assessment and Plan: CTA negative for PE and lower extremity Dopplers negative for DVT. (8) COPD (chronic obstructive pulmonary disease): Code(s): J44.9 - Chronic obstructive pulmonary disease, unspecified Status: Chronic Assessment and Plan: P.r.n. bronchodilators Subjective Date/time seen: 01/28/25 10:25 Interval history: Denied chest pain or shortness of breath but is on bed rest. No palpitations. No dizziness. Tolerating soft diet. Just had some teeth pulled so not able to tolerate full solids. Denied GI or symptoms. Denied abnormal bleeding. Review of Systems Review of Systems: All systems reviewed & are unremarkable except as noted in HPI and below Exam Narrative: HEENT: PERRL, sclerae nonicteric, pharyngeal mucosa pink and intact NECK: No JVD, adenopathy, or thyromegaly CHEST: Clear to auscultation. Normal effort HEART: NL S1/S2, regular, no murmur ABDOMEN: BS+, soft, nontender, no mass, no bruits EXTREMITIES: No cyanosis, edema, or clubbing NEUROLOGIC: CN intact and symmetric to inspection. MUSCULOSKELETAL: Tone and strength symmetric PSYCH: Alert. Oriented to person, place, and time Objective Data Vital Signs Vital Signs: Vital Signs - 24 hr 01/27/25 12:00 01/27/25 12:00 01/27/25 12:00 Temperature 97.9 F Pulse Rate 76 77 Respiratory Rate 16 Blood Pressure 113/64 Pulse Oximetry 96 95 Oxygen Delivery Room Air 01/27/25 14:00 01/27/25 15:49 01/27/25 16:00 Temperature Pulse Rate 74 71 Respiratory Rate Blood Pressure Pulse Oximetry 95 Oxygen Delivery Room Air 01/27/25 16:02 01/27/25 18:00 01/27/25 20:00 Temperature 97.6 F 97.6 F Pulse Rate 72 62 61 Respiratory Rate 16 20 Blood Pressure 109/75 123/67 Pulse Oximetry 98 98 Oxygen Delivery 01/27/25 20:00 01/27/25 20:00 01/27/25 22:00 Temperature Pulse Rate 63 63 Respiratory Rate Blood Pressure Pulse Oximetry Oxygen Delivery Room Air 01/28/25 00:00 01/28/25 00:00 01/28/25 00:00 Temperature 98.1 F Pulse Rate 65 66 Respiratory Rate 21 H Blood Pressure 117/50 L Pulse Oximetry 95 Oxygen Delivery Room Air 01/28/25 02:00 01/28/25 04:00 01/28/25 04:00 Temperature 98.2 F Pulse Rate 63 70 68 Respiratory Rate 20 Blood Pressure 153/66 H Pulse Oximetry 95 Oxygen Delivery 01/28/25 04:00 01/28/25 06:00 01/28/25 07:54 Temperature 98.0 F Pulse Rate 65 69 Respiratory Rate 18 Blood Pressure 147/55 H Pulse Oximetry 95 Oxygen Delivery Room Air 01/28/25 09:18 Temperature Pulse Rate 73 Respiratory Rate Blood Pressure Pulse Oximetry Oxygen Delivery Intake/Output Intake/Output: Intake & Output 01/25/25 01/26/25 01/27/25 01/28/25 23:59 23:59 23:59 22:59 Intake Total 552.1 677.5 592.5 751.1 Output Total 800 700 500 Balance 552.1 -122.5 -107.5 251.1 Meds/Results Medications: Active Medications Generic Name Dose Route Start Last Admin Trade Name Freq PRN Reason Stop Dose Admin Acetaminophen 650 mg 01/25/25 21:10 01/28/25 09:22 Acetaminophen 325 Mg Tablet PO 650 mg Q4H PRN Administration Mild Pain (1-3) or Fever Hydrocodone Bitart/Acetaminophen 1 tab 01/26/25 09:40 Hydrocodone/Acetaminophen (*Crx) 5-325 Mg Tablet PO Q4H PRN Pain Rated 4-6 Albuterol 2 puff 01/26/25 00:40 Albuterol Sulfate (*Sp) Aerosol 1 Puff INHALATION Q4H PRN Shortness Of Breath Or Wheezing Aspirin 81 mg 01/26/25 09:00 01/28/25 09:18 Aspirin 81 Mg Enteric Tablet PO 81 mg QAM SOFI Administration Atorvastatin Calcium 80 mg 01/26/25 09:00 01/28/25 09:18 Atorvastatin 40 Mg Tablet PO 80 mg DAILY SOFI Administration Clopidogrel Bisulfate 75 mg 01/26/25 09:00 01/28/25 09:18 Clopidogrel Bisulfate 75 Mg Tablet PO 75 mg DAILY SOFI Administration Heparin Sodium (Porcine) 4,000 units 01/25/25 20:04 01/26/25 04:52 Heparin Sodium 5,000 Units/Ml Vial IV PUSH 4,000 units PRN PRN Administration aPTT less than 55 seconds Heparin Sodium (Porcine) 2,000 units 01/25/25 20:04 01/28/25 05:29 Heparin Sodium 5,000 Units/Ml Vial IV PUSH 2,000 units PRN PRN Administration aPTT 55 - 70 seconds Hydrochlorothiazide 25 mg 01/26/25 09:00 01/28/25 09:18 Hydrochlorothiazide 25 Mg Tablet PO 25 mg QAM SOFI Administration Heparin Sodium/Dextrose 25,000 units in 250 mls @ 6 mls/hr 01/25/25 20:05 01/28/25 05:31 Heparin Sodium/D5w 100 Units/Ml IV CONT 600 units/hr .Q24H SOFI 6 mls/hr Protocol Titration 600 UNITS/HR Isosorbide Mononitrate 120 mg 01/26/25 09:00 01/28/25 09:18 Isosorbide Mononitrate 60 Mg Tab.Er.24h PO 120 mg QAM SOFI Administration Levothyroxine Sodium 100 mcg 01/26/25 06:30 01/28/25 05:41 Levothyroxine Sodium 100 Mcg Tablet PO 100 mcg DAILY@0630 SOFI Administration Metoprolol Succinate 100 mg 01/26/25 09:00 01/28/25 09:18 Metoprolol Succinate Ext Rel 100 Mg Tabcr PO 100 mg DAILY SOFI Administration Mirtazapine 15 mg 01/26/25 21:00 01/27/25 20:30 Mirtazapine Soltab 15 Mg Tab.Disper PO 15 mg QHS SOFI Administration Miscellaneous Information 0 each 01/26/25 05:15 01/27/25 00:54 Epinastine 0.05 % Drops- Nonformulary. Please Obtain A Home Supply If Possible Or Hold Whi XX 02/25/25 05:14 Not Given [facility] Montelukast Sodium 10 mg 01/26/25 09:00 01/28/25 09:18 Montelukast Sodium 10 Mg Tablet PO 10 mg DAILY [facility] Administration Non-Formulary Medication 1 drop 01/26/25 00:45 Epinastine EACH EYE 02/25/25 00:44 Q12H [facility] Ondansetron HCl 4 mg 01/25/25 21:10 Ondansetron Inj 4 Mg/2 Ml Vial IV PUSH Q4H PRN Nausea Prednisone 5 mg 01/26/25 08:00 01/28/25 09:18 Prednisone 5 Mg Tablet PO 5 mg DAILY@0800 [facility] Administration Umeclidinium/Vilanterol 1 puff 01/26/25 08:00 01/28/25 08:16 Umeclidinium/Vilanterol 62.5-25 Mcg Ellipta INHALATION 1 puff DAILYRT SOFI Administration Radiology Results: ITS Impressions Chest X-Ray 01/25/25 15:18 IMPRESSION: No acute findings. Chest CTA 01/25/25 19:57 IMPRESSION: 1. No PE or other acute cardiopulmonary findings. Venous Doppler Study 01/26/25 08:48 Impression: Negative for DVT. Labs Labs: Laboratory Results - last 24 hr 01/27/25 01/27/25 01/28/25 12:56 20:42 03:55 WBC 9.5 RBC 3.77 L Hgb 11.1 L Hct 35.1 L MCV 93.1 MCH 29.4 MCHC 31.6 L RDW 13.7 Plt Count 261 MPV 9.6 APTT 60.2 H 161.8 H* 62.1 H Sodium 138 Potassium 3.8 Chloride 108 H Carbon Dioxide 26 Anion Gap 4 BUN 17 Creatinine 0.73 Estim Creat Clear Calc 41 Estimated GFR > 60 Glucose 95 Calcium 8.7 Magnesium 1.8 Total Bilirubin 0.8 AST 29 ALT 18 Alkaline Phosphatase 50 Total Protein 6.4 Albumin 3.4 L
[2025-01-28 11:51] LABS: Partial Thromboplastin Time 60.8 Seconds (22.3-36.8)
--- NOTE | 2025-01-28 13:00 | PM.PNCARD ---
Progress Note: A&P Assessment and Plan (1) NSTEMI (non-ST elevated myocardial infarction): Code(s): I21.4 - Non-ST elevation (NSTEMI) myocardial infarction Status: Acute Assessment and Plan: NSTEMI Hx of CABG complex anatomy and decision for medical management. History of asthma Plan d/c heparin infusion Aspirin Plavix Statin Imdur Metoprolol observe for today and can go home tomorrowfrom cardiac stand point Subjective Date/time seen: 01/28/25 13:00 Interval history: Patient seen for chest pain and unstable angina No recurrent episodes of chest discomfort Telemetry sinus rhythm Review of Systems Review of Systems: All systems reviewed & are unremarkable except as noted in HPI and below Exam Const: General: comfortable and no acute distress Other: Very pleasant elderly lady in no distress HENMT: Mouth: Yes moist mucous membranes Eyes: Sclera: sclerae normal Neck: Neck: supple and no JVD Resp: Effort & Inspection: normal respiratory effort Auscultation: clear to auscultation bilaterally Cardio: Rate: regular rate Rhythm: regular rhythm Other: Soft systolic murmur does not radiate from the left sternal border no diastolic murmur no gallop GI: GI Palp: Yes Soft to palpation Auscultation: normal bowel sounds Skin: General skin exam: normal color Neuro: Other: Alert and oriented times Extrem: Other: No edema, very good distal pulses Objective Data Vital Signs Vital Signs: Vital Signs - 24 hr 01/27/25 15:49 01/27/25 16:00 01/27/25 16:02 Temperature 36.4 C Pulse Rate 71 72 Respiratory Rate 16 Blood Pressure 109/75 Pulse Oximetry 95 98 Oxygen Delivery Room Air 01/27/25 18:00 01/27/25 20:00 01/27/25 20:00 Temperature 36.4 C Pulse Rate 62 61 Respiratory Rate 20 Blood Pressure 123/67 Pulse Oximetry 98 Oxygen Delivery Room Air 01/27/25 20:00 01/27/25 22:00 01/28/25 00:00 Temperature 36.7 C Pulse Rate 63 63 65 Respiratory Rate 21 H Blood Pressure 117/50 L Pulse Oximetry 95 Oxygen Delivery 01/28/25 00:00 01/28/25 00:00 01/28/25 02:00 Temperature Pulse Rate 66 63 Respiratory Rate Blood Pressure Pulse Oximetry Oxygen Delivery Room Air 01/28/25 04:00 01/28/25 04:00 01/28/25 04:00 Temperature 36.8 C Pulse Rate 70 68 Respiratory Rate 20 Blood Pressure 153/66 H Pulse Oximetry 95 Oxygen Delivery Room Air 01/28/25 06:00 01/28/25 07:54 01/28/25 08:00 Temperature 36.7 C Pulse Rate 65 69 Respiratory Rate 18 Blood Pressure 147/55 H Pulse Oximetry 95 Oxygen Delivery Room Air 01/28/25 08:00 01/28/25 09:18 01/28/25 10:00 Temperature Pulse Rate 79 73 60 Respiratory Rate Blood Pressure Pulse Oximetry Oxygen Delivery 01/28/25 10:54 Temperature 36.8 C Pulse Rate 59 L Respiratory Rate 18 Blood Pressure 112/50 L Pulse Oximetry 97 Oxygen Delivery Intake/Output Intake/Output: Intake & Output 01/25/25 01/26/25 01/27/25 01/28/25 23:59 23:59 23:59 22:59 Intake Total 552.1 677.5 592.5 991.1 Output Total 800 700 500 Balance 552.1 -122.5 -107.5 491.1 Meds/Results Medications: Active Medications Generic Name Dose Route Start Last Admin Trade Name Freq PRN Reason Stop Dose Admin Acetaminophen 650 mg 01/25/25 21:10 01/28/25 09:22 Acetaminophen 325 Mg Tablet PO 650 mg Q4H PRN Administration Mild Pain (1-3) or Fever Hydrocodone Bitart/Acetaminophen 1 tab 01/26/25 09:40 Hydrocodone/Acetaminophen (*Crx) 5-325 Mg Tablet PO Q4H PRN Pain Rated 4-6 Albuterol 2 puff 01/26/25 00:40 Albuterol Sulfate (*Sp) Aerosol 1 Puff INHALATION Q4H PRN Shortness Of Breath Or Wheezing Aspirin 81 mg 01/26/25 09:00 01/28/25 09:18 Aspirin 81 Mg Enteric Tablet PO 81 mg QAM SOFI Administration Atorvastatin Calcium 80 mg 01/26/25 09:00 01/28/25 09:18 Atorvastatin 40 Mg Tablet PO 80 mg DAILY SOFI Administration Clopidogrel Bisulfate 75 mg 01/26/25 09:00 01/28/25 09:18 Clopidogrel Bisulfate 75 Mg Tablet PO 75 mg DAILY SOFI Administration Heparin Sodium (Porcine) 4,000 units 01/25/25 20:04 01/26/25 04:52 Heparin Sodium 5,000 Units/Ml Vial IV PUSH 4,000 units PRN PRN Administration aPTT less than 55 seconds Heparin Sodium (Porcine) 2,000 units 01/25/25 20:04 01/28/25 05:29 Heparin Sodium 5,000 Units/Ml Vial IV PUSH 2,000 units PRN PRN Administration aPTT 55 - 70 seconds Hydrochlorothiazide 25 mg 01/26/25 09:00 01/28/25 09:18 Hydrochlorothiazide 25 Mg Tablet PO 25 mg QAM SOFI Administration Heparin Sodium/Dextrose 25,000 units in 250 mls @ 6 mls/hr 01/25/25 20:05 01/28/25 05:31 Heparin Sodium/D5w 100 Units/Ml IV CONT 600 units/hr .Q24H SOFI 6 mls/hr Protocol Titration 600 UNITS/HR Isosorbide Mononitrate 120 mg 01/26/25 09:00 01/28/25 09:18 Isosorbide Mononitrate 60 Mg Tab.Er.24h PO 120 mg QAM SOFI Administration Levothyroxine Sodium 100 mcg 01/26/25 06:30 01/28/25 05:41 Levothyroxine Sodium 100 Mcg Tablet PO 100 mcg DAILY@0630 SOFI Administration Metoprolol Succinate 100 mg 01/26/25 09:00 01/28/25 09:18 Metoprolol Succinate Ext Rel 100 Mg Tabcr PO 100 mg DAILY SOFI Administration Mirtazapine 15 mg 01/26/25 21:00 01/27/25 20:30 Mirtazapine Soltab 15 Mg Tab.Disper PO 15 mg QHS SOFI Administration Miscellaneous Information 0 each 01/26/25 05:15 01/27/25 00:54 Epinastine 0.05 % Drops- Nonformulary. Please Obtain A Home Supply If Possible Or Hold Whi XX 02/25/25 05:14 Not Given [facility] Montelukast Sodium 10 mg 01/26/25 09:00 01/28/25 09:18 Montelukast Sodium 10 Mg Tablet PO 10 mg DAILY SOFI Administration Non-Formulary Medication 1 drop 01/26/25 00:45 Epinastine EACH EYE 02/25/25 00:44 Q12H [facility] Ondansetron HCl 4 mg 01/25/25 21:10 Ondansetron Inj 4 Mg/2 Ml Vial IV PUSH Q4H PRN Nausea Prednisone 5 mg 01/26/25 08:00 01/28/25 09:18 Prednisone 5 Mg Tablet PO 5 mg DAILY@0800 [facility] Administration Umeclidinium/Vilanterol 1 puff 01/26/25 08:00 01/28/25 08:16 Umeclidinium/Vilanterol 62.5-25 Mcg Ellipta INHALATION 1 puff DAILYRT SOFI Administration Radiology Results: ITS Impressions Chest X-Ray 01/25/25 15:18 IMPRESSION: No acute findings. Chest CTA 01/25/25 19:57 IMPRESSION: 1. No PE or other acute cardiopulmonary findings. Venous Doppler Study 01/26/25 08:48 Impression: Negative for DVT. Labs Labs: Laboratory Results - last 24 hr 01/27/25 01/28/25 01/28/25 20:42 03:55 11:32 WBC 9.5 RBC 3.77 L Hgb 11.1 L Hct 35.1 L MCV 93.1 MCH 29.4 MCHC 31.6 L RDW 13.7 Plt Count 261 MPV 9.6 APTT 161.8 H* 62.1 H 60.8 H Sodium 138 Potassium 3.8 Chloride 108 H Carbon Dioxide 26 Anion Gap 4 BUN 17 Creatinine 0.73 Estim Creat Clear Calc 41 Estimated GFR > 60 Glucose 95 Calcium 8.7 Magnesium 1.8 Total Bilirubin 0.8 AST 29 ALT 18 Alkaline Phosphatase 50 Total Protein 6.4 Albumin 3.4 L
[2025-01-28] MEDS: MIRTAZAPINE SOLTAB 15 MG TAB.DISPER PO (20:39)
[2025-01-29] VITALS (11 sets, daily range): BP systolic 136–146; BP diastolic 42–65; PULSE 58–75; RESP 16–20; TEMP 36.4–36.8; O2SAT 95–96
[2025-01-29 04:28] LABS: Hematocrit 35.2 % (37.0-47.0); Hemoglobin 11.2 g/dL (12.0-15.0); Mean Corpuscular HGB Conc 31.8 g/dl (32-36); Mean Corpuscular Hemoglobin 29.1 pg (26-34); Mean Corpuscular Volume 91.4 fl (80-100); Platelet Count Result 262 k/mm3 (150-375); Red Blood Count 3.85 M/mm3 (4.2-5.4); White Blood Count 9.6 K/mm3 (4.5-10.0)
[2025-01-29 04:44] LABS: Alanine Aminotransferase 37 U/L (6-35); Albumin Level 3.5 g/dL (3.5-5.1); Alkaline Phosphatase 51 U/L (38-126); Anion Gap 5 mmol/L (4-12); Aspartate Amino Transferase 52 U/L (14-36); Bilirubin,Total 0.7 mg/dL (0.2-1.3); Blood Urea Nitrogen 15 mg/dL (7-17); Calcium 8.9 mg/dL (8.4-10.2); Carbon Dioxide 27 mmol/L (22-30); Chloride 106 mmol/L (98-107); Estimated CRCL calculation 40 ml/min; Estimated Glomerular Filt Rate > 60; Glucose 92 mg/dL (65-110); Magnesium 1.8 mg/dL (1.6-2.3); Potassium 3.6 mmol/L (3.4-5.0); Sodium 138 mmol/L (137-145); Total Protein 6.6 g/dL (6.3-8.2)
[2025-01-29] MEDS: LEVOTHYROXINE SODIUM 100 MCG TABLET PO (05:54)
[2025-01-29] MEDS: ATORVASTATIN 40 MG TABLET 80 MG PO (08:50)
[2025-01-29] MEDS: ACETAMINOPHEN 325 MG TABLET 650 MG PO (08:50)
[2025-01-29] MEDS: ISOSORBIDE MONONITRATE 60 MG TAB.ER.24H 120 MG PO (08:50)
[2025-01-29] MEDS: ASPIRIN 81 MG ENTERIC TABLET PO (08:51)
[2025-01-29] MEDS: CLOPIDOGREL BISULFATE 75 MG TABLET PO (08:51)
[2025-01-29] MEDS: METOPROLOL SUCCINATE EXT REL 100 MG TABCR PO (08:51)
[2025-01-29] MEDS: MONTELUKAST SODIUM 10 MG TABLET PO (08:51)
[2025-01-29] MEDS: UMECLIDINIUM/VILANTEROL 62.5-25 MCG ELLIPTA 1 PUFF INHALATION (08:55)
--- NOTE | 2025-01-29 14:24 | P.DS_ITS ---
DS: Admitting Diagnosis Discharge Date 01/29/25 Admitting Diagnosis Chest pain DS: Discharge Diagnosis Discharge Diagnosis (1) NSTEMI (non-ST elevated myocardial infarction): Code(s): I21.4 - Non-ST elevation (NSTEMI) myocardial infarction Status: Acute DS: Summary Hospital Course Hospital Course: Reason for Admission Chest pain following dental procedure, with history of extensive coronary artery disease, status post CABG and multiple stents. Admitted for evaluation and management of possible acute coronary syndrome. Hospital Course 1. NSTEMI (Non-ST Elevation Myocardial Infarction) / Unstable Angina * Presented with acute chest pain at dentist?s office, resolved after two nitroglycerin sprays. * History of severe, diffuse, calcified coronary artery disease, prior CABG (1980s), multiple stents, and complex anatomy. * EKG: Sinus rhythm, LVH, ST-T changes, indeterminate age inferior infarct, lateral ST-T abnormality. * Troponin: Initial values negative, then mild uptrend (peak 0.175 ng/mL). * Cardiology and critical care consulted; consensus for medical management due to complex anatomy and lack of PCI options. * Treated with IV nitroglycerin and heparin drips, transitioned to oral antianginal therapy (Imdur). * Dual antiplatelet therapy (aspirin, clopidogrel), metoprolol, Isosorbide mononitrate and high-intensity statin continued. * No further chest pain during hospitalization; telemetry monitoring showed si nus rhythm. * Echocardiogram: Grade 1 diastolic dysfunction, no significant valvular abnormality. 2. Essential Hypertension * BP elevated on admission, managed with metoprolol and Imdur. * Amlodipine and isosorbide held initially due to nitro drip, then resumed as appropriate. * Hydrochlorothiazide continued. 3. Hypothyroidism * Continued home levothyroxine; TSH within normal limits. 4. COPD and Moderate Persistent Asthma * Home inhalers continued (umeclidinium-vilanterol, albuterol, montelukast, prednisone). * No acute exacerbation during admission. 5. Hypokalemia and Magnesium Deficiency * Potassium (2.9) and magnesium (1.7) replaced; both normalized during stay. 6. Elevated D-dimer * D-dimer 1.5; CTA chest negative for PE, lower extremity Dopplers negative for DVT. 7. Other Chronic Conditions * Atrophy of left kidney, aortic atherosclerosis, cervicalgia, pure hypercholesterolemia. Pertinent Labs and Imaging * CBC:?WBC 10.7, Hgb 11.7, Hct 35.6, Plt 244. * BMP:?Na 136, K 2.9 (corrected), CO2 31, BUN 20, Cr 0.87, Glu 112. * Cardiac Enzymes:?Troponin I peaked at 0.175 ng/mL. * BNP:?528. * Imaging: * CXR: No acute findings. * CTA chest: No PE or acute cardiopulmonary findings. * Echo: Grade 1 diastolic dysfunction, no significant valvular abnormality. Hospital Medications * Aspirin?81 mg PO daily * Clopidogrel?75 mg PO daily * Atorvastatin?80 mg PO daily * Metoprolol succinate?50 mg PO BID * Imdur (isosorbide mononitrate)?120 mg PO daily * Hydrochlorothiazide?25 mg PO daily * Levothyroxine?100 mcg PO daily * Umeclidinium-vilanterol?1 inhalation daily * Albuterol?1 puff Q4H PRN * Montelukast?10 mg PO daily * Prednisone?5 mg PO daily * Amlodipine?5 mg PO daily (resume as appropriate) * Acetaminophen?650 mg PO Q4H PRN pain/fever * Hydrocodone/acetaminophen?5-325 mg PO Q4H PRN pain Potassium and magnesium supplementation as needed during admission. Discharge Medications * Continue home medications as above, with the following adjustments: * Aspirin?81 mg PO daily * Clopidogrel?75 mg PO daily * Atorvastatin?80 mg PO daily * Metoprolol succinate?50 mg PO BID * Imdur (isosorbide mononitrate)?120 mg PO daily * Hydrochlorothiazide?25 mg PO daily * Levothyroxine?100 mcg PO daily * Umeclidinium-vilanterol?1 inhalation daily * Albuterol?1 puff Q4H PRN * Montelukast?10 mg PO daily * Prednisone?5 mg PO daily * Amlodipine?5 mg PO daily (if not contraindicated) * Acetaminophen?650 mg PO Q4H PRN pain/fever * Hydrocodone/acetaminophen?5-325 mg PO Q4H PRN pain Resume potassium and magnesium supplementation only if needed based on outpatient labs. Discharge Instructions * Activity:?Gradually increase activity as tolerated. Avoid strenuous exertion for 1 week. * Diet:?Soft diet as tolerated due to recent dental extractions. Advance as able. * Wound Care:?Follow up with dentist for denture fitting and oral care. * Cardiac Care: * Continue dual antiplatelet therapy and statin. * Monitor for chest pain, shortness of breath, palpitations, syncope. * Maintain BP and HR logs if able. * COPD/Asthma:?Continue inhalers and monitor for respiratory symptoms. * Follow-up: * Cardiology within 1 week. * Primary care within 1?2 weeks. * Dentist as scheduled. * Repeat labs (CBC, BMP, electrolytes) as outpatient. * When to Seek Care: * Chest pain unrelieved by nitroglycerin. * Shortness of breath, palpitations, syncope, or new neurologic symptoms. * Signs of bleeding or bruising. Condition at Discharge * Hemodynamically stable, chest pain resolved, no new symptoms, at cognitive and functional baseline. F/u with PCP in 3-5 days F/u with cardiology as instructed Time Spent with Patient Time attestation: Total time spent providing and/or coordinating discharge services: DS: Data Data Completed and Pending Labs on day of discharge: Labs from last 24 hours 01/29/25 03:38 WBC 9.6 RBC 3.85 L Hgb 11.2 L Hct 35.2 L MCV 91.4 MCH 29.1 MCHC 31.8 L RDW 13.9 Plt Count 262 MPV 9.6 Sodium 138 Potassium 3.6 Chloride 106 Carbon Dioxide 27 Anion Gap 5 BUN 15 Creatinine 0.75 Estim Creat Clear Calc 40 Estimated GFR > 60 Glucose 92 Calcium 8.9 Magnesium 1.8 Total Bilirubin 0.7 AST 52 H ALT 37 H Alkaline Phosphatase 51 Total Protein 6.6 Albumin 3.5 Discharge Plan Discharge Attending physician on discharge: Marshall Monae Consulting providers: Iván Rubi; Kiki Masters Discharging Clinician: Marshall Monae Anticipated Discharge Date/Time: 01/29/25 14:18 Patient Disposition: Home Activity: as tolerated Diet: as tolerated and heart healthy Patient Instructions: Antibiotic Form, Clopidogrel (By mouth), Angina (GEN), Chest Pain (GEN) Patient Language: Korean Stand Alone Forms: General Discharge Information Follow-up/Referrals: Kiki Masters APN-C [Advanced Practice Nurse, Cardiology] Referral Note: F/u with Cardiology as instructed Justin Dang MD [Primary Care Provider, Family Practice] Referral Note: F/u with PCP in 3-5 days Discharge Medications: Continued clopidogrel 75 mg tablet 75 mg PO DAILY hydrochlorothiazide 100 mg tablet 25 mg PO DAILY metoprolol succinate 100 mg tablet extended release 24 hr 50 mg PO BID atorvastatin 80 mg tablet 80 mg PO DAILY isosorbide mononitrate 120 mg tablet extended release 24 hr 120 mg PO DAILY Anoro Ellipta 62.5-25 mcg/actuation blister with device 1 inh inhalation DAILY levothyroxine 100 mcg tablet 100 mcg PO DAILY Qty: 90 3RF nitroglycerin 0.3 mg tablet, sublingual 0.3 mg sublingual Q5M PRN (Reason: chest pain) Rx Instructions: do not exceed 3 doses per episode montelukast 10 mg tablet 10 mg PO DAILY epinastine 0.05 % drops 1 drp EACH EYE Q12H albuterol sulfate [Ventolin HFA] 90 mcg/actuation HFA aerosol inhaler 1 puff inhalation Q4H PRN (Reason: shortness of breath or wheezing) Qty: 8.5 5RF prednisone 5 mg tablet 5 mg PO DAILY aspirin 81 mg tablet 81 mg PO DAILY amlodipine 10 mg tablet 5 mg PO DAILY mirtazapine 30 mg tablet 15 mg PO QHS Date of admission: 01/26/25 07:07 Primary Care Provider: Justin Dang Admitting Provider: Marshall Monae Attending physician on admission: Marshall Monae Condition: Serious
--- NOTE | 2025-01-29 14:24 | PM.DS ---
DS: Admitting Diagnosis Discharge Date 01/29/25 Admitting Diagnosis Chest pain DS: Discharge Diagnosis Discharge Diagnosis (1) NSTEMI (non-ST elevated myocardial infarction): Code(s): I21.4 - Non-ST elevation (NSTEMI) myocardial infarction Status: Acute DS: Summary Hospital Course Hospital Course: Reason for Admission Chest pain following dental procedure, with history of extensive coronary artery disease, status post CABG and multiple stents. Admitted for evaluation and management of possible acute coronary syndrome. Hospital Course 1. NSTEMI (Non-ST Elevation Myocardial Infarction) / Unstable Angina Presented with acute chest pain at dentist?s office, resolved after two nitroglycerin sprays. History of severe, diffuse, calcified coronary artery disease, prior CABG (1980s), multiple stents, and complex anatomy. EKG: Sinus rhythm, LVH, ST-T changes, indeterminate age inferior infarct, lateral ST-T abnormality. Troponin: Initial values negative, then mild uptrend (peak 0.175 ng/mL). Cardiology and critical care consulted; consensus for medical management due to complex anatomy and lack of PCI options. Treated with IV nitroglycerin and heparin drips, transitioned to oral antianginal therapy (Imdur). Dual antiplatelet therapy (aspirin, clopidogrel), metoprolol, Isosorbide mononitrate and high-intensity statin continued. No further chest pain during hospitalization; telemetry monitoring showed sinus rhythm. Echocardiogram: Grade 1 diastolic dysfunction, no significant valvular abnormality. 2. Essential Hypertension BP elevated on admission, managed with metoprolol and Imdur. Amlodipine and isosorbide held initially due to nitro drip, then resumed as appropriate. Hydrochlorothiazide continued. 3. Hypothyroidism Continued home levothyroxine; TSH within normal limits. 4. COPD and Moderate Persistent Asthma Home inhalers continued (umeclidinium-vilanterol, albuterol, montelukast, prednisone). No acute exacerbation during admission. 5. Hypokalemia and Magnesium Deficiency Potassium (2.9) and magnesium (1.7) replaced; both normalized during stay. 6. Elevated D-dimer D-dimer 1.5; CTA chest negative for PE, lower extremity Dopplers negative for DVT. 7. Other Chronic Conditions Atrophy of left kidney, aortic atherosclerosis, cervicalgia, pure hypercholesterolemia. Pertinent Labs and Imaging CBC:?WBC 10.7, Hgb 11.7, Hct 35.6, Plt 244. BMP:?Na 136, K 2.9 (corrected), CO2 31, BUN 20, Cr 0.87, Glu 112. Cardiac Enzymes:?Troponin I peaked at 0.175 ng/mL. BNP:?528. Imaging: CXR: No acute findings. CTA chest: No PE or acute cardiopulmonary findings. Echo: Grade 1 diastolic dysfunction, no significant valvular abnormality. Hospital Medications Aspirin?81 mg PO daily Clopidogrel?75 mg PO daily Atorvastatin?80 mg PO daily Metoprolol succinate?50 mg PO BID Imdur (isosorbide mononitrate)?120 mg PO daily Hydrochlorothiazide?25 mg PO daily Levothyroxine?100 mcg PO daily Umeclidinium-vilanterol?1 inhalation daily Albuterol?1 puff Q4H PRN Montelukast?10 mg PO daily Prednisone?5 mg PO daily Amlodipine?5 mg PO daily (resume as appropriate) Acetaminophen?650 mg PO Q4H PRN pain/fever Hydrocodone/acetaminophen?5-325 mg PO Q4H PRN pain Potassium and magnesium supplementation as needed during admission. Discharge Medications Continue home medications as above, with the following adjustments: Aspirin?81 mg PO daily Clopidogrel?75 mg PO daily Atorvastatin?80 mg PO daily Metoprolol succinate?50 mg PO BID Imdur (isosorbide mononitrate)?120 mg PO daily Hydrochlorothiazide?25 mg PO daily Levothyroxine?100 mcg PO daily Umeclidinium-vilanterol?1 inhalation daily Albuterol?1 puff Q4H PRN Montelukast?10 mg PO daily Prednisone?5 mg PO daily Amlodipine?5 mg PO daily (if not contraindicated) Acetaminophen?650 mg PO Q4H PRN pain/fever Hydrocodone/acetaminophen?5-325 mg PO Q4H PRN pain Resume potassium and magnesium supplementation only if needed based on outpatient labs. Discharge Instructions Activity:?Gradually increase activity as tolerated. Avoid strenuous exertion for 1 week. Diet:?Soft diet as tolerated due to recent dental extractions. Advance as able. Wound Care:?Follow up with dentist for denture fitting and oral care. Cardiac Care: Continue dual antiplatelet therapy and statin. Monitor for chest pain, shortness of breath, palpitations, syncope. Maintain BP and HR logs if able. COPD/Asthma:?Continue inhalers and monitor for respiratory symptoms. Follow-up: Cardiology within 1 week. Primary care within 1?2 weeks. Dentist as scheduled. Repeat labs (CBC, BMP, electrolytes) as outpatient. When to Seek Care: Chest pain unrelieved by nitroglycerin. Shortness of breath, palpitations, syncope, or new neurologic symptoms. Signs of bleeding or bruising. Condition at Discharge Hemodynamically stable, chest pain resolved, no new symptoms, at cognitive and functional baseline. F/u with PCP in 3-5 days F/u with cardiology as instructed Time Spent with Patient Time attestation: Total time spent providing and/or coordinating discharge services: DS: Data Data Completed and Pending Labs on day of discharge: Labs from last 24 hours 01/29/25 03:38 WBC 9.6 RBC 3.85 L Hgb 11.2 L Hct 35.2 L MCV 91.4 MCH 29.1 MCHC 31.8 L RDW 13.9 Plt Count 262 MPV 9.6 Sodium 138 Potassium 3.6 Chloride 106 Carbon Dioxide 27 Anion Gap 5 BUN 15 Creatinine 0.75 Estim Creat Clear Calc 40 Estimated GFR > 60 Glucose 92 Calcium 8.9 Magnesium 1.8 Total Bilirubin 0.7 AST 52 H ALT 37 H Alkaline Phosphatase 51 Total Protein 6.6 Albumin 3.5 Discharge Plan Discharge Attending physician on discharge: Marshall Monae Consulting providers: Iván Rubi; Kiki Masters Discharging Clinician: Marshall Monae Anticipated Discharge Date/Time: 01/29/25 14:18 Patient Disposition: Home Activity: as tolerated Diet: as tolerated and heart healthy Patient Instructions: Antibiotic Form, Clopidogrel (By mouth), Angina (GEN), Chest Pain (GEN) Patient Language: Angolan Stand Alone Forms: General Discharge Information Follow-up/Referrals: Kiki Masters APN-C [Advanced Practice Nurse, Cardiology] Referral Note: F/u with Cardiology as instructed Justin Dang MD [Primary Care Provider, Family Practice] Referral Note: F/u with PCP in 3-5 days Discharge Medications: Continued clopidogrel 75 mg tablet 75 mg PO DAILY hydrochlorothiazide 100 mg tablet 25 mg PO DAILY metoprolol succinate 100 mg tablet extended release 24 hr 50 mg PO BID atorvastatin 80 mg tablet 80 mg PO DAILY isosorbide mononitrate 120 mg tablet extended release 24 hr 120 mg PO DAILY Anoro Ellipta 62.5-25 mcg/actuation blister with device 1 inh inhalation DAILY levothyroxine 100 mcg tablet 100 mcg PO DAILY Qty: 90 3RF nitroglycerin 0.3 mg tablet, sublingual 0.3 mg sublingual Q5M PRN (Reason: chest pain) Rx Instructions: do not exceed 3 doses per episode montelukast 10 mg tablet 10 mg PO DAILY epinastine 0.05 % drops 1 drp EACH EYE Q12H albuterol sulfate [Ventolin HFA] 90 mcg/actuation HFA aerosol inhaler 1 puff inhalation Q4H PRN (Reason: shortness of breath or wheezing) Qty: 8.5 5RF prednisone 5 mg tablet 5 mg PO DAILY aspirin 81 mg tablet 81 mg PO DAILY amlodipine 10 mg tablet 5 mg PO DAILY mirtazapine 30 mg tablet 15 mg PO QHS Date of admission: 01/26/25 07:07 Primary Care Provider: Justin Dang Admitting Provider: Marshall Monae Attending physician on admission: Marshall Monae Condition: Serious
== END 2025-01-29 15:00 | disposition home or self-care (01) | DRG 282 ==
LOC: ANHED 20:26 → ANHICU 21:37 → ANHIMU 01-26 12:04
PROVIDERS: Family Medicine; Internal Medicine; Nurse Practitioner; Admitting Provider Internal Medicine; Emergency Provider Physician Assistant; PCP Family Medicine Adolescent Medicine; Visit Provider Internal Medicine
DX: I21.4 Non-ST elevation (NSTEMI) myocardial infarction (principal); I25.110 Atherosclerotic heart disease of native coronary artery with unstable angina pectoris; E87.6 Hypokalemia; I10 Essential (primary) hypertension; Z95.5 Presence of coronary angioplasty implant and graft; Z95.1 Presence of aortocoronary bypass graft; E03.9 Hypothyroidism, unspecified; J44.9 Chronic obstructive pulmonary disease, unspecified; E78.00 Pure hypercholesterolemia, unspecified; E61.2 Magnesium deficiency; J45.40 Moderate persistent asthma, uncomplicated; Z90.49 Acquired absence of other specified parts of digestive tract
CPT/HCPCS: 36415; 71046; 71275; 80053; 83690; 83735; 83880; 84439; 84443; 84484; 85025; 85027; 85380; 85610; 85730; 87641; 93005; 93970; 94640; 96365; 96366; 96375; 99285; A9270; C8929; G0378; J1644; J2305; J3475; J3480; J7040; J7512; Q9957; Q9967